=== PATIENT | male | born 1945 | race Caucasian/White ===

== ENCOUNTER → 2024-11-08 13:07 | Outpatient (REF) | payer OTHER, SELFPAY | LOC: HWRAD 13:07 | PROVIDERS: ATTENDING PHYSICIAN Internal Medicine | DX: R63.4 Abnormal weight loss (principal) | CPT/HCPCS: 71250; 74176 ==

== ENCOUNTER 2024-12-01 02:55 | Inpatient (IN) | payer OTHER, SELFPAY ==
[2024-11-30 23:01] VITALS: BMI 21.5
[2024-11-30 23:37] LABS: Hematocrit 43.1 % (39.0-52.0); Hemoglobin 13.8 g/dL (13.0-18.0); Mean Corp Hgb Conc. 32.0 g/dL (33.0-37.0); Mean Corpuscular Volume 86.7 fL (80.0-94.0); Nucleated Red Blood Cells % 0 % (-); Platelet Count 333 10^3/uL (130-400); Red Cell Dist. Width 15.6 % (11.5-14.5)
[2024-11-30 23:54] LABS: COVID-19 Antigen Negative (Negative)
[2024-11-30 23:59] LABS: ALT (SGPT) 15 U/L (0-50); AST (SGOT) 21 U/L (17-59); Albumin 3.8 g/dl (3.5-5.0); Alkaline Phosphatase 100 U/L (38-126); Blood Urea Nitrogen 15 mg/dl (9-20); Calcium 9.6 mg/dl (8.4-10.2); Carbon Dioxide 24 mmol/L (22-30); Chloride 107 mmol/L (98-107); Glucose 110 mg/dl (70-99); Potassium 3.9 mmol/L (3.5-5.1); Sodium 137 mmol/L (135-145); Total Protein 6.7 g/dl (6.3-8.2); eGFR > 60.00
[2024-12-01] VITALS (16 sets, daily range): BP systolic 95–146; BP diastolic 56–85; BMI 21.1
[2024-12-01 00:18] LABS: Troponin I 0.554 ng/ml
--- NOTE | 2024-12-01 02:19 | DOWNTIME ---
There was a [employer] Client [employer] Downtime on 12/01/2024 from 0100 to 12/01/2024 at 0215. Downtime documentation of patient's care, including medication administrations, has been reconciled in the electronic record per guidelines. Refer to the
patient's paper chart under the miscellaneous tab to see printed paper medication records and downtime forms.
--- NOTE | 2024-12-01 02:38 | ED.GENMED ---
History of Present Illness
General
Chief Complaint: Breathing Problem
Source: patient
Time Seen by Provider: 12/01/24 00:20
Nursing documentation reviewed up to this point in time: agreed with
History of Present Illness
History of Present Illness:
Note:
CHIEF COMPLAINT(S)
Shortness of breath and chest pain.
HISTORY OF PRESENT ILLNESS
The patient is a 79-year-old male with a recent history of shortness of breath and chest pain. Approximately three weeks ago, the patient began experiencing difficulty breathing, particularly during ambulation. The patient reported that this
difficulty in maintaining adequate oxygenation would improve with rest but would recur upon resuming activity. In addition, the patient noted the onset of pain on the left side of the chest, accompanied by increased difficulty with respiratory
efforts. The patient has no known history of cancer, and a recent scan showed multiple nodules in the lungs, with the largest being in the left lung. The patient was informed about the need for further evaluation with blood tests and additional
imaging studies. No other significant medical history was mentioned, although the patient is taking medication for prostate health.
PAST MEDICAL AND SURIGICAL HISTORY
The patient is taking medication for prostate health, but specific details of past medical or surgical history were not discussed.
SOCIAL DETERMINANTS AFFECTING HEALTH
No specific social determinants impacting the patients health were mentioned.
SOCIAL HISTORY
The patient did not disclose any information regarding smoking, alcohol use, or illicit drug use.
PLAN
1. Perform a computed tomography (CT) scan to evaluate for potential pulmonary embolism, given the current symptoms of shortness of breath and chest pain, and to compare with the prior imaging.
2. Conduct further blood tests as indicated in the conversation.
3. Investigate and analyze the lung nodules noted previously on the scan.
DIFFERENTIAL DIAGNOSIS
The Differential Diagnosis includes, in no particular order and is not limited to:
- Pulmonary embolism
- Pneumonia
- Lung cancer
- Chronic obstructive pulmonary disease exacerbation
- Acute coronary syndrome
- Aortic dissection
- Pneumothorax
- Interstitial lung disease
- Pleural effusion
- Costochondritis
EKG
My independent EKG interpretation is:
- Time of EKG recorded is not specified.
- Rhythm is normal.
- Heart rate is 75 beats per minute.
- CO interval, QRS duration, and QT interval are normal.
- Cardiac axis is normal.
- No ST-segment changes present.
- No T-wave inversions observed.
- No arrhythmias detected.
- Comment on the lack of previous EKG for comparison: No old EKG available for comparison.
CARE-UPDATE
12/01/24 - 02:09
CT scan reveals segmental and sub-segmental pulmonary emboli in all lobes, with right heart strain indicated by an RV-to-LV ratio greater than 1. Potential pulmonary infarct forming in the left lower lobe. No evidence of thoracic aortic aneurysm or
acute aortic dissection. Noted centrally located nodules and ground-glass opacities across all lobes, suggestive of infection or aspiration. [place] Alert activated at 2:03 a.m. Resort Keeper and interventional radiologist have been notified for further
management.
Disposition:
SUMMARY OF ENCOUNTER
The patient, a 79-year-old male, was seen in the emergency department for an acute presentation of shortness of breath and chest pain. A CT scan confirmed multiple pulmonary emboli with right heart strain. The patient showed signs of hypoxia, though
his blood pressure remained steady and normal.
DISPOSITION
Admit to the ICU for further management by the hospitalist service.
ASSESSMENT
The patients symptoms and CT scan findings of segmental and sub-segmental pulmonary emboli suggest the primary diagnosis of pulmonary embolism with right heart strain.
EMERGENCY TREATMENTS ADMINISTERED
Heparin initiated as anticoagulation therapy for pulmonary embolism management.
MANAGEMENT OF THE PATIENTS CARE WAS DISCUSSED WITH
Resort Keeper, hospitalist, and interventional radiologist have been consulted for further management in the ICU.
PLAN
The patient will be admitted to the ICU for close monitoring and management of the pulmonary embolism and associated right heart strain. Anticoagulation therapy with heparin will continue, and close monitoring of oxygenation levels and cardiac
function will be prioritized.
INDEPENDENT REVIEW OF LABS AND INTERPRETATION OF TESTS
My independent CT scan interpretation reveals segmental and sub-segmental pulmonary emboli in all lobes, with right heart strain as indicated by an RV-to-LV ratio greater than 1.
MEDICAL DECISION MAKING
-Complexity of Data Reviewed: Chronic conditions affecting care include the patients history of prostate health management. Differential diagnosis considered includes pulmonary embolism, pneumonia, lung cancer, chronic obstructive pulmonary disease
exacerbation, acute coronary syndrome, aortic dissection, pneumothorax, interstitial lung disease, pleural effusion, and costochondritis.
-Data:
Category 1: CT scan independently interpreted showing pulmonary emboli and right heart strain.
Category 3: Discussion of management includes consultations with the hospitalist, administrative aide, and interventional radiologist.
DIAGNOSIS
Pulmonary Embolism with Right Heart Strain (ICD-10: I26.01)
Phy Exam
Physical Exam
Physical Exam:
.
General Physical Exam
General Presentation: moderate distress
General age: appears older than age
General Skin: warm and dry
General Habitus: elderly and frail
General Mental: alert
General Hydration: appears well hydrated
Cardiovascular Exam
Cardiovascular Exam: regular rate/rhythm
Pulmonary Exam
Pulmonary Exam: decreased breath sounds and respiratory distress
Oxygen Status: oxygen 2 liters via NC
Respirations: mild increase in effort
Breath Sounds: Wheeze: generalized
Musculoskeletal Exam
Musculoskeletal Exam: full ROM, no edema and neuro vasc intact
Skin Exam
Skin Exam: normal color and warm/dry
Psychiatric Exam
Psychiatric Exam: normal mood/affect
Scores
Heart Failure Risk
Heart Failure Risk Score: Not Applicable
Course
Orders/Labs/Results
Orders:
Orders
11/30/24 23:08
Electrocardiogram (*1) Urgent
Reason for Study: Other
Other Reason for Exam: Respiratory Distress
Cardiac Monitoring- Treatment ONCE
EKG- Treatment ONCE
IV Insert/Care/Rem.- Treatment PRN
CR Chest - 2 Views Urgent
Comment:
Reason For Exam: respiratory distress
O2 Therapy [RESP] Urgent
Titrate/Wean O2 to maintain O2 sat greater than (%): 93
Special Instructions: TO MAINTAIN CONTINUOUS O2 SATS >/= 93%
Pulse Ox/cont/shift [RESP] Urgent
Quantity: 1
Special Instructions: continuous pulse ox
11/30/24 23:25
COVID-19 Antigen Urgent
Source: Nasal Swab
Complete Blood Count/With Diff Urgent
Comprehensive Metabolic Panel Urgent
NT-proBNP Urgent
Troponin I Urgent
Influenza A+B Rapid Molecular Urgent
SHARON Source: Nasal Swab
Specimen Description:
12/01/24 00:43
CT Chest PE Study Urgent
Comment:
Reason For Exam: lung mass, elev trop, dyspnea
12/01/24 02:38
PTT Urgent
Comment: Obtain baseline before beginning heparin infusion if not already collected
Heparin 5,400 units IV NOW STA
Pharmacy Request to Place See Dose Instructions PO NOW STA
Discontinue all Active Warfarin orders?: Yes
Nursing to Place Non Medication Order As Directed
Physician Order: PTT 6 hours after initial start of Heparin infusion
12/01/24 02:45
Heparin INFUSION titrate rate - CONTINUOUS Heparin 34020 Units/250 ml 25,000 units in 250 ml IV PER PROTOCOL
Weight to be used for heparin protocol in kilograms (kg):: 68
Protocol:: DVT/PE
PTT Goal Range to be used:: PTT 73 to 111 seconds
Order type:: Initial
INITIAL Infusion Dose (UNITS/KG/hr) & then follow protocol:: 18 units/kg/hr
Infusion Dose in UNITS/hr & then follow protocol (UNITS/hr):: 1,200
INFUSION RATE in mL/hr & then follow protocol (mL/hr):: 12
For DVT/PE algorithm, re-bolus for low PTT?: Yes
PTT less than or equal to 64 seconds:: Re-bolus 80 units/kg (max 10,000units). Increase by 300 units/hr
(+ 3mL/hr)
PTT 64.1 to 72.9 seconds:: Re-bolus 40 units/kg (max 5,000 units). Increase by 100 units/hr
(+ 1mL/hr)
PTT 73 to 111 seconds:: Target Range. No change in rate.
PTT 111.1 to 130.9 seconds:: Decrease rate by 100 units/hr (- 1 mL/hr)
PTT 131 to 199.9 seconds:: HOLD for 1 hr. Then decrease by 200 units/hr (- 2mL/hr)
PTT greater than or equal to 200 seconds:: HOLD for 2 hrs & Notify Provider. Then decrease by 300 units/hr
(- 3mL/hr)
Lab follow-up:: Each change, PTT q6h until 2 consecutive are therapeutic. Then
PTT daily.
12/01/24 03:[address] See Dose Instructions IV DIRECTED
Abnormal Lab Results
11/30/24
23:25
WBC 11.7 H 10^3/uL
(4.8-10.8)
MCHC 32.0 L g/dL
(33.0-37.0)
RDW 15.6 H %
(11.5-14.5)
Abs Immat Gran (auto) 0.1 H 10^3/uL
(0-0.05)
Absolute Neuts (auto) 9.7 H 10^3/uL
(1.4-6.5)
Absolute Lymphs (auto) 0.7 L 10^3/uL
(1.2-3.4)
Absolute Monos (auto) 1.0 H 10^3/uL
(0.1-0.6)
Neutrophils % 83.4 H %
(42.2-75.2)
Lymphocytes % 6.3 L %
(20.5-51.1)
Glucose 110 H mg/dl
(70-99)
Troponin I 0.554 H* ng/ml
11/30/24 23:25
11/30/24 23:25
Vital Signs
Initial and Last Documented VS:
Initial Vital Signs
Temp Pulse Resp Pulse Ox
98.0 F 94 20 81
11/30/24 23:03 11/30/24 23:03 11/30/24 23:03 11/30/24 23:03
Last Documented Vital Signs
Temp Pulse Resp Pulse Ox
98.0 F 83 18 98
11/30/24 23:03 11/30/24 23:30 12/01/24 00:00 11/30/24 23:30
*Pulse Oximetry
SaO2: 98
Nasal Cannula flow liters per minute: 82
Oxygen Mode of Delivery: Room air
Patient hypoxic: yes (85% on room air)
*Critical Care Note
Total Time (30-74mins, 75-104mins- exclusive of procedures): 42 (Critical care statement: A total of 42 minutes of critical care time was provided for this patient. This time is separate from time utilized to perform the aforementioned documented
procedures. Aggregate critical care time includes only time during which I was engaged in work directl)
ED Attending Note
-
Portions of this chart may have been created with voice recognition software.� Occasional wrong word or��sound alike� substitutions may have occurred due to the inherent limitations of voice recognition software.
Discharge Plan
Departure
Patient Disposition: Admit
Date of Disposition: 12/01/24
Time of Disposition: 02:41
Admit to: ICU
Presentation/result/management discussed w/ accepting MD/DO: Hospitalist
Discharge Problem:
Pulmonary emboli, Infarctions, pulmonary, Pneumonia, Right heart strain
Prescriptions:
No Action
atorvastatin 20 mg tablet
20 mg PO HS
metoprolol succinate 50 mg tablet extended release 24 hr
50 mg PO DAILY
levothyroxine 50 mcg tablet
50 mcg PO DAILY
timolol maleate 0.5 % drops
1 drp ophthalmic (eye) DAILY
dutasteride 0.5 mg capsule
0.5 mg PO DAILY
Referrals:
Rosey Eason DO [Family Provider, Internal Medicine]
Interventions
Interventions:
*Risk Screen - Suicide Last Done: 11/30/24 23:03
*General Assessment Last Done: 11/30/24 23:03
*Neglect/Abuse Screening Last Done: 11/30/24 23:03
*ED- Fall Risk Assessment Last Done: 11/30/24 23:03
*ED COVID-19 Vaccine History Last Done: 11/30/24 23:03
ED- Cardiac Assessment Last Done: 12/01/24 00:30
ED- Pulmonary Assessment Last Done: 12/01/24 00:30
Discharge Date and Time
Print Language: SLOVAK
--- NOTE | 2024-12-01 02:44 | HPS.HSE ---
Family Physician
-
Family Physician: Rosey Eason
Chief Complaint
-
Chest Pain, SOB
History of Present Illness
Patient is a 79y M with PMH significant for ASCVD, hypothyroidism and BPH who presents to ED complaining of chest pain and SOB. Patient states that he has been having PETER for the past 3-4 weeks. This has been gradually progressive. He was seen
by his PCP and Pulmonary. CT scan done (without IV contrast) on 11/08 showed evidence of LLL pulmonary nodules / pleural based. Patient also noted about 50# weight loss over the past 2 years - unintentional. He was scheduled for PET scan later
this AM for further evaluation.
Friday patient had more severe SOB with exertion - having to stop twice each way to catch his breath on the way to and from dinner.
Patient also notes L lower / lateral chest pain that has been increasing over the past 2 weeks or so. Pain is worse with deep breathing or coughing.
He denies any chills. notes that he has had temperatures at home of around 100 intermittently. No significant cough. No GI or complaints.
With increased SOB and chest pain this evening, patient presented t o the ED for further evaluation.
Patient denies any prior h/o DVT / PE. No recent surgery. No recent travel. No lower extremity edema or calf pain.
Medical History
Past Medical History
Past Medical History: Reports Other
Additional Past Medical History:
ASCVD
Hypothyroidism
BPH
Glaucoma
Pulmonary Nodules (new)
Past Surgical History: Reports Other
Additional Past Surgical History:
Appendectomy
Cataracts
Social History
Tobacco: Former Smoker (Quit smoking 25 years ago. / ppd x 40 years prior to that.)
Alcohol: Occasional
Drug: None
Personal:
Living: Assisted Living
Family History
Family History: Other (Father: Lung Cancer Mother: CAD)
Allergies / Home Medications
Allergies reflects when Allergies were last updated in [facility].
Home Medications with original date entered in [facility]
Allergy/Medication List:
Allergies
Allergy/AdvReac Type Severity Reaction Status Date / Time
No Known Allergies Allergy Unverified 11/30/24 23:03
Home Medications
atorvastatin 20 mg tablet 20 mg PO HS 12/01/24
dutasteride 0.5 mg capsule 0.5 mg PO DAILY 12/01/24
levothyroxine 50 mcg tablet 50 mcg PO DAILY 12/01/24
metoprolol succinate 50 mg tablet,extended release 24 hr 50 mg PO DAILY 12/01/24
timolol maleate 0.5 % eye drops 1 drp ophthalmic (eye) DAILY 12/01/24
Review of Systems
-
History Source: Patient
A 12 point ROS was completed and negative except as noted: Yes
Constitutional: Reports Fever and Fatigue; Denies Chills
EENT: Denies Sore Throat
Respiratory: Reports Trouble Breathing; Denies Cough or Hemoptysis
Cardiac: Reports Chest Pain; Denies Diaphoresis or Palpitations
Abdomen/GI: Denies Abdominal Pain, Nausea, Vomiting or Diarrhea
: Denies Dysuria, Frequency or Flank Pain
Musculoskeletal: Denies Joint Pain or Edema
Neurological: Denies Dizzy or Headache
Psych: Denies Depression or Anxiety
Physical Exam
Vital Signs
Vital Signs
Temp Pulse Resp Pulse Ox
98.0 F 83 18 98
11/30/24 23:03 11/30/24 23:30 12/01/24 00:00 12/01/24 02:43
Physical Exam
General: Other (79y M in no acute distress.)
HEENT: Moist mucous membranes, PERRLA and Other (Neck supple. Pos HJR.)
Respiratory: Other (Breath sounds are diminished at the L base. Few scattered squeaks / wheezes.)
Cardiac: S1/S2 and Regular Rhythm; No Murmur
GI: Soft, Non Tender, Non Distended and Normal Bowel Sounds
Musculoskeletal: No Clubbing, No Cyanosis, No Edema and Other (No calf tenderness / chords.)
Neuro: AO x 3
Laboratory Results
-
11/30/24 23:25
11/30/24 23:25
Laboratory Results
Total Bilirubin 1.2 mg/dl (0.2-1.3) 11/30/24 23:25
AST 21 U/L (17-59) 11/30/24 23:25
ALT 15 U/L (0-50) 11/30/24 23:25
Alkaline Phosphatase 100 U/L (38-126) 11/30/24 23:25
Troponin I 0.554 ng/ml H* 11/30/24 23:25
Impression/Plan
-
A/P: Patient is a 79y M with PMH significant for ASCVD, hypothyroidism and BPH who presents to ED complaining of chest pain and SOB.
Multiple Bilateral Pulmonary Emboli
Acute Hypoxemic Respiratory Insufficiency secondary to the above
Pleuritic Pain secondary to LLL Infarct
Pulmonary Nodules LLL
- Admit for further evaluation and treatment.
- Significant clot burden and radiographic evidence of R sided strain; however - BP stable, not tachycardic and adequate oxygenation on 2.5 lpm of supplemental O2.
- Begin IV heparin and continue for at least 24 hours.
- Check Echo in AM.
- IVF support and monitor BP.
- Continue supplemental O2. Pain control / supportive care.
- Follow troponin to peak.
- Continue IV abx / Unasyn for now for ground glass opacities, intermittent fevers, etc - though suspect malignant / inflammatory > infectious etiology.
- Pulmonary evaluation for additional recommendations.
- Will need to reschedule PET scan (originally for this AM) for further evaluation of pulm nodules (which may explain etiology of VTE).
- Follow for clinical improvement.
ASCVD
- Prior h/o NSTEMI, no surgeries / stents.
- Not on daily ASA.
- Continue Toprol with holding parameters.
- Continue statin.
- Troponin elevation likely secondary to PE as noted above. Follow to peak.
Hypothyroidism
- Continue current T4 supplementation.
- Update TFTs
BPH
- Continue dutasteride for now.
- Bladder scan protocol.
- Check PSA given weight loss, etc.
Glaucoma
- Continue timolol.
DVT Prophylaxis: On IV Heparin
Code Status: Full
[2024-12-01] MEDS: HEPARIN 5400 UNITS IV (03:02)
[2024-12-01] MEDS: HEPARIN 25000 UNITS/250 ML IV ×2 (03:03→23:14)
[2024-12-01] MEDS: UNASYN IV ×4 (03:09→21:40)
[2024-12-01 03:19] LABS: APTT 30.9 Sec (23.4-35.0)
[2024-12-01] MEDS: LR 1000 IV ×2 (03:46→13:33)
[2024-12-01] MEDS: TYLENOL 650 MG PO ×3 (03:53→20:02)
[2024-12-01 04:19] LABS: Blood Urea Nitrogen 14 mg/dl (9-20); Calcium 9.1 mg/dl (8.4-10.2); Carbon Dioxide 24 mmol/L (22-30); Chloride 106 mmol/L (98-107); Estimated Creatinine Clearance 72 ml/min; Glucose 117 mg/dl (70-99); HDL Cholesterol 38 mg/dl; LDL Cholesterol, Calculated 108 mg/dl; Potassium 4.0 mmol/L (3.5-5.1); Sodium 136 mmol/L (135-145); Very Low Density Lipoprotein 8 mg/dl (0-30); eGFR > 60.00
--- NOTE | 2024-12-01 04:33 | PTCARENOTE ---
Addendum entered by Marybeth Winston RN 12/01/24 04:37:
PRN PO tylenol given for rectal temp 101.5. rectal probe in place.
Original Note:
rec'd pt from ER on heparin gtt. next PTT due at 0900. CHG bath complete. pt oriented x3, SR on monitor, EKG done. on 2L NC, admits to SOB, HOB elevated for comfort, O2 sat 94-96%. lungs diminished. NPO. urinal at bedside. IVF initiated. AM labs
sent. at bedside, updated on plan. call medel in reach.
[2024-12-01 04:35] LABS: Troponin I 0.823 ng/ml
[2024-12-01 04:51] LABS: PSA, Total - Screen 1.53 ng/ml (0.0-4.0)
[2024-12-01] MEDS: SYNTHROID 50 MCG PO (05:10)
[2024-12-01] MEDS: PROSCAR 5 MG PO (08:24)
[2024-12-01] MEDS: TOPROL XL 50 MG PO (08:24)
--- NOTE | 2024-12-01 08:25 | PTCARENOTE ---
Received pt in bed with his at the bedside. They were both informed of the plan of care regarding managing the Heparin drip to dissolve the blood clots in his lungs while supporting him with oxygen. Right AC with LR@100ml/hr and Heparin drip
@1200 units/hr via left AC. Bounding peripheral pulses, no edema. Lungs dim throughout. Tolerating 2 liters nasal cannula. Pulse ox 96%. C/O 6 out of 10 pain in his left lateral chest wall with deep breathing. Asked for Acetaminophen. +BSX4. Admits
to a poor appetite. NPO except sips of water. He did not want to brush his teeth at this time. Safe environment maintained. Will continue to monitor.
[2024-12-01] MEDS: TIMOPTIC 0.5% OPHTHALMIC SOLUTION 1 DROP OPHTH (08:26)
--- NOTE | 2024-12-01 09:30 | PTCARENOTE ---
Pt dangled his feet at the bedside to void. Voided 220ml's dark concentrated urine. Mildly PETER. Desaturated to 80% with dislodgement of his nasal cannula. Oxygen increase to 3 liters nasal cannula until his pulse ox is >94%. They are aware of the
plan of care. Posteriorly while sitting up his breath sounds were dim throughout. Right AC with LR and left AC with Heparin @ 1200 units/hr. Good peripheral pulses, no edema. Safe environment maintained. Will continue to monitor.
[2024-12-01 09:58] LABS: APTT 125.1 Sec (23.4-35.0)
[2024-12-01 10:07] LABS: Troponin I 0.575 ng/ml
--- NOTE | 2024-12-01 10:08 | CON.PUL ---
Consultation
Consultation Request
Date/Time Consultation Requested: 12/01/2024328
Date/Time Consultation Performed: 12/01/2024 - 932
Requesting Provider: Dr. Lo
Performing Provider: Dr. Oetro
Reason for Consultation: Acute PE
Medical History
-
Chief Complaint: Worsening SOB + chest pain
History of Present Illness:
79-year-old male with a past medical history of BPH, hyperlipidemia, hypothyroidism, history of colon polyps, history of skin cancer and lung nodules who presents with shortness of breath and chest pain. His shortness of breath has been ongoing for
about 1-2 months, and progressively worsening. He had a CT chest/abdomen/pelvis on 11/08/2024 showing a 3.6 pleural-based nodule in the left lower lobe with other smaller centrilobular nodules seen bilaterally, with bilateral thyroid nodules and
diffuse wall thickening and inflammatory changes adjacent to the urinary bladder + mild prostatic enlargement. He saw us in the pulmonary office on 11/18/2024 and a PET/CT is being arranged. In the ER, he was afebrile with pulse rate 94,
respiratory rate 20, BP 130/78 and he was initially saturating 81% on room air. Initial blood work pertinent for mild leukocytosis to 11.7, troponin 0.554, proBNP 3420, and COVID-19 antigen negative. CXR showed no acute cardiopulmonary process.
CTA chest showed pulmonary emboli within all segmental branches of the lungs bilaterally although no central emboli in the main pulmonary artery on either side. There was evidence of RV strain with RV: LV ratio of 1:1. Also multiple left-sided
thyroid nodules. The previous left lower lobe peripheral nodule which had measured 3.[address] chest from 11/08/2024, now measures 1.1 cm. There was no pathological mediastinal lymphadenopathy. PERT alert called - patient started on heparin drip
in addition to LR, and admitted to the IMU for further care with pulmonary service consulted for additional management/recommendations. IR reviewed case and recommended anticoagulation with no need for IR intervention.
When I saw the patient, he was resting in bed in no acute distress. Currently on 2 L/min nasal cannula saturating 96% with heart rate 64 and BP 120/67. He denies any recent plane rides, long car trips and no personal history of a pulmonary
embolism or clot in his legs. Also denies a family history of blood clots. He is currently on heparin drip. Still has SOB/chest discomfort but it is better than yesterday. Currently denies headache, abdominal pain, nausea, fevers or chills.
PMHx:BPH, hypothyroidism, hyperlipidemia, history of UT, colon polyps, history of skin cancer, pulmonary nodules
PSHx: Appendectomy, bilateral cataract surgery
Past Medical History
Past Medical History: Other (Above as per HPI)
Past Surgical History: Other (Above as per HPI)
Social History
Tobacco: Former Smoker (Quit approximately 40 years ago, smoking 0.5 PPD x 20 years)
Alcohol: None
Drug: None
Family History
Family History: Cancer (Father: Lung cancer) and Other (Mother: History of UT)
Allergies / Home Medications
Allergies
Allergy/AdvReac Type Severity Reaction Status Date / Time
No Known Allergies Allergy Unverified 11/30/24 23:03
Home Medications
�Medication �Instructions �Recorded �Confirmed �Last Taken �Type
atorvastatin 20 mg tablet 20 mg PO HS High Cholesterol 12/01/24 12/01/24 Unknown History
dutasteride 0.5 mg capsule 0.5 mg PO DAILY Urinary Issue 12/01/24 12/01/24 Unknown History
levothyroxine 50 mcg tablet 50 mcg PO DAILY Thyroid 12/01/24 12/01/24 Unknown History
metoprolol succinate 50 mg 50 mg PO DAILY Blood Pressure 12/01/24 12/01/24 Unknown History
tablet,extended release 24 hr
timolol maleate 0.5 % eye drops 1 drp ophthalmic (eye) DAILY Eye 12/01/24 12/01/24 Unknown History
Condition
Review of Systems
-
History Source: Patient
All other systems: Negative unless noted
Vitals / Labs / Diagnostic Testing
Vital Signs
Temp Pulse Resp BP Pulse Ox
98.7 F 57 24 123/80 99
12/01/24 07:17 12/01/24 09:45 12/01/24 09:45 12/01/24 08:25 12/01/24 09:45
Lab Data
11/30/24 23:25
12/01/24 03:43
Laboratory Results
12/01/24 12/01/24
02:51 09:17
APTT 30.9 125.1 H
Microbiology
11/30/24 23:25 Nasal Swab Influenza Types A & B (CHRISTOPH) - Final
Negative for Influenza A & B, NAAT
Negative results must be combined with clinical observations
and patient history.
Nucleic Acid Amplification test (NAAT)performed on the
[employer] platform.
Diagnostic Testing:
Physical Exam
-
HEENT: Normocephalic and Anicteric
Cardiovascular: S1/S2 and Peripheral Edema (negative)
Respiratory: Clear, Wheeze (negative), Rales (negative), Rhonchi (negative) and Non-Labored Respirations
GI: Soft, Non Distended, Non Tender and Normal Bowel Sounds
Neurology: Awake, Alert and Tremors (negative)
Skin: Warm and Dry
General: Respiratory Distress (negative), Comfortable, Fever (negative) and Chills (negative)
Assessment
-
Assessment: 79-year-old male with a past medical history of BPH, hyperlipidemia, hypothyroidism, history of colon polyps, history of skin cancer and lung nodules who presents with shortness of breath and chest pain. His shortness of breath has
been ongoing for about 1-2 months, and progressively worsening. He had a CT chest/abdomen/pelvis on 11/08/2024 showing a 3.6 pleural-based nodule in the left lower lobe with other smaller centrilobular nodules seen bilaterally, with bilateral
thyroid nodules and diffuse wall thickening and inflammatory changes adjacent to the urinary bladder + mild prostatic enlargement. He saw us in the pulmonary office on 11/18/2024 and a PET/CT is being arranged. In the ER, he was afebrile with pulse
rate 94, respiratory rate 20, BP 130/78 and he was initially saturating 81% on room air. Initial blood work pertinent for mild leukocytosis to 11.7, troponin 0.554, proBNP 3420, and COVID-19 antigen negative. CXR showed no acute cardiopulmonary
process. CTA chest showed pulmonary emboli within all segmental branches of the lungs bilaterally although no central emboli in the main pulmonary artery on either side. There was evidence of RV strain with RV: LV ratio of 1:1. Also multiple
left-sided thyroid nodules. The previous left lower lobe peripheral nodule which had measured 3.[address] chest from 11/08/2024, now measures 1.1 cm. There was no pathological mediastinal lymphadenopathy. PERT alert called - patient started on
heparin drip in addition to LR, and admitted to the IMU for further care with pulmonary service consulted for additional management/recommendations. IR reviewed case and recommended anticoagulation with no need for IR intervention.
Chronic conditions [employer] AGENT: BPH, hypothyroidism, hyperlipidemia, history of UT, colon polyps, history of skin cancer, pulmonary nodules
Impression:
#Acute submassive PE involving all lobes of the lung bilaterally with RV strain (PESI score: 108 points, class IV = high risk: 4.0 - 11.4 % 30-day mortality)
#Elevated troponin likely due to above with demand ischemia due to type II UT
#Right lower extremity DVT with nonocclusive thrombus in the right common femoral vein; also occlusive thrombus in the right SFJ down to the calf
#Leukocytosis likely reactive due to above
#Former tobacco smoker (quit approximately 40 years ago, smoking 0.5 PPD x 20 years)
#Hypothyroidism
#BPH without LUTS
#History of skin cancer
#History of colon polyps
#Pulmonary nodules including a left lower lobe posterior lung nodule, with formed component measuring 8 x 8 mm, and previously on CT chest from 11/08/2024, it measured 11 x 12 mm
Plan:
- Continue with systemic parenteral anticoagulation with heparin drip with eventual plans to transition to NOAC, preferably Eliquis, after 24-48 hours
- Although he does have evidence of RV strain with high clot burden, he remains hemodynamically stable, on minimal supplemental oxygen and is not tachycardic. No need for catheter directed thrombolysis or other vascular intervention at this time
- Transthoracic echo today performed, showing a moderately dilated, hypokinetic RV although there is no evidence of TR. Recommend repeat echo in approximately 4 to 6 weeks to assure the RV systolic function improves.
- Peripheral lower extremity duplex US from today (12/01) shows a nonocclusive thrombus in the right common femoral vein, and a superficial occlusive thrombus in the right GSV from the SFJ down to the calf
- Recommend outpatient hematology evaluation to discuss duration of AC needed and to consider hypercoagulable workup
- Continue following up with us in the office to continue working up his left lower lobe pleural-based nodule, although it has decreased in size from 3.6 cm now down to 1.3 cm, suggestive of rounded atelectasis; the more formed component of this
nodule had previously measured 11 x 12 mm, and now measures 8 x 8 mm--> he was pending a PET/CT. Defer to Dr. Amaral who is following with him in the pulmonary office, if a biopsy of this LLL nodule is still needed
- Maintain SpO2 >90-94% using supplemental oxygen, wean down as tolerated
- Recommend ambulatory pulse oximetry prior to discharge
- Outpatient pulmonary office follow-up recommended for full PFTs in about 4 to 6 weeks, in addition to 6MWT
- Bedrest for first 24 hours after heparin gtt was started and aPTT at goal
- Maintain MAP>65
- Replete electrolytes with K>4, Mg>2
- Maintain euglycemia with goal BG >100 and <180
- Trend H/H and transfuse if needed to keep Hb>7g/dL; keep plt>50k (while on heparin gtt)
- prn nebulized bronchodilators - not currently bronchospastic
- Incentive spirometer encouraged 10x per hour for at least 4 hrs a day
- DVT ppx: Heparin gtt
Pulmonary service will continue to follow along.
Data:
Bilateral lower extremity duplex US 12/01/2024:
Occlusive thrombus in the right greater saphenous vein from the saphenofemoral junction to the calf. Nonocclusive thrombus in the right common femoral vein.
Patient with known pulmonary embolism.
CTA chest 12/01/2024:
1. Positive for pulmonary embolism, with segmental and subsegmental emboli involving all lobes of the lung. No emboli seen within the main pulmonary trunks.
2. Mild elevation of the RV: LV ratio, measuring approximately 1.1, suggestive of mild right heart strain.
3. Multiple lung nodules as detailed above, majority of which are not significantly changed compared to prior CT dated 11/08/2024. The largest nodule seen on prior CT dated 11/08/2024 within the left lower lobe has significantly decreased in size, and
most likely represents rounded atelectasis. Remaining nodules are also likely infectious or inflammatory, however follow-up imaging is suggested for confirmation.
4. Tiny left pleural effusion, new compared to prior study.
5. Unchanged thyroid nodules. Consider dedicated thyroid ultrasound as clinically appropriate.
Transthoracic echocardiogram 12/01/2024:
1. Technically limited study.
2. Ejection fraction is 56% by volumetric assesment.
3. Moderately dilated hypokinetic right ventricle.
4. Trileaflet calcified aortic valve with adequate leaflet excursion.
5. Mild concentric left ventricular hypertrophy.
Total time spent today was 78 minutes for this encounter. Time includes reviewing laboratory test/imaging results, reviewing pertinent medical records, obtaining and reviewing medical history, performing an appropriate exam, ordering medications,
tests and procedures. Time also includes documentation of this encounter, coordinating patient care and communicating with other healthcare professionals. Total time does not include separately billed tests performed on this date of service.
--- NOTE | 2024-12-01 10:18 | PTCARENOTE ---
Heparin drip adjusted accordingly. Pt and his were informed that in 6 hours we will reassess his PTT for a therapeutic range of 73-111. They verbalized their understanding.
--- NOTE | 2024-12-01 12:02 | W.PN.HOSP.TC ---
Today's Communication/Plan
-
See plan
Assessment / Plan
Assessment / Plan
Impression
Patient is a 79y M with PMH significant for ASCVD, hypothyroidism and BPH who presents to ED complaining of chest pain and SOB.
Acute hypoxic respiratory failure
Multiple bilateral pulmonary embolism
Left lower lobe process: Nodule versus pulmonary infarct with small pleural effusion.
Unintentional weight loss
Non-DC troponin elevation in the settings of acute PE
Conditions prior to admission
ASCVD
Hypothyroidism
BPH
Glaucoma
Plan
Acute hypoxic respiratory failure pulse ox 88% on room air on presentation baseline multiple bilateral pulmonary emboli.
Left lower lobe process with nodule, possibly pulmonary infarct and small pleural effusion.
CT scan with possible mild RV strain ratio 1.1.
Continue oxygen supplementation for
Initiated on IV heparin for
Echocardiogram
Lower extremity Doppler.
Speech and swallow evaluation
Empiric antibiotics: Unasyn
Pulmonary consult
With above as well as unintentional weight loss patient is scheduled for PET scan as outpatient
ASCVD
- Prior h/o NSTEMI, no surgeries / stents.
- Not on daily ASA.
- Continue Toprol with holding parameters.
- Continue statin.
- Troponin elevation likely secondary to PE as noted above. Follow to [facility].
Hypothyroidism
- Continue current T4 supplementation.
- Update TFTs
BPH
- Continue dutasteride for now.
- Bladder scan protocol.
- Check PSA given weight loss, etc.
Glaucoma
- Continue timolol.
DVT Prophylaxis: On IV Heparin
Code Status: Full
Anticipated Discharge: 24 - 48 hours
Subjective/Interval History
-
Date of Service: December 01, 2024
Objective Data
-
Labs:
Laboratory Results
12/01/24 12/01/24 12/01/24
02:51 03:43 09:17
APTT 30.9 125.1 H
Sodium 136
Potassium 4.0
Chloride 106
Carbon Dioxide 24
BUN 14
Creatinine 0.8
Glucose 117 H
Calcium 9.1
12/01/24
16:15
APTT Pending
Sodium
Potassium
Chloride
Carbon Dioxide
BUN
Creatinine
Glucose
Calcium
Vital Signs:
Vital Signs
Temp Pulse Resp BP Pulse Ox
98.9 F 57 24 123/80 96
12/01/24 11:50 12/01/24 09:45 12/01/24 09:45 12/01/24 08:25 12/01/24 11:50
I&O
11/30/24 12/01/24 12/02/24
06:59 06:59 06:59
Intake Total 336 / 448 688 / 688
Output Total 220 / 220
Balance 336 / 448 468 / 468
Physical Exam
-
General: Well Developed and No Apparent Distress
HEENT: Normocephalic, Atraumatic and Moist Mucous Membranes
Respiratory: Clear to Auscultation
Cardiac: Regular Rhythm and S1/S2; Negative Murmur, Rub or Gallop
GI: Soft, Nontender, Nondistended and Normal Bowel Sounds; Negative Organomegaly
Rectal: Deferred by Provider
Musculoskeletal: No Clubbing, No Cyanosis and No Edema
Skin: Negative Rash
Neuro: Nonfocal/Grossly Intact
--- NOTE | 2024-12-01 13:25 | CM ---
SOB, CP, fever, lost 50 lbs in 2 years without trying. Initial assessment completed with patient with in room. Patient lives with his in a 4th floor apartment in an elevator building at [facility] independent living, no steps to enter.
CONTAIN[employer] patient was independent in ADL's and ambulation, drives. No DME. No in-home services. Does have HC-POA. No VA benefits. No psychiatric hospitalizations. PCP is Dr. Rosey Eason. Pharmacy is [facility]. Discharge POC: TBD.
--- NOTE | 2024-12-01 14:30 | PTOTSP ---
Speech Language Pathology
Pt seen for clinical bedside swallow evaluation. P.O. trials of puree, regular solids, and thin liquids provided. Adequate mastication, bolus formation, and A-P transit noted. Pt denied any globus sensation. Cough with 1st 2 sips of thin water
via cup and last straw sip (total cough in 3/8 trials). RN reported that pt took meds without difficulty earlier. Will initiate diet and monitor. If coughing noted with P.O. intake, will consider instrumental swallowing assessment.
Recommend:
(1) Regular solids/thin liquids
(2) Aspiration precautions: slow rate, sit upright, single sips
(3) Meds as tolerated
(4) CO[employer] SPECIALIST to continue to follow
[2024-12-01 17:25] LABS: APTT 70.4 Sec (23.4-35.0)
[2024-12-01] MEDS: HEPARIN 2700 UNITS IV (17:32)
--- NOTE | 2024-12-01 20:00 | PTCARENOTE ---
Received pt from previous shift. Systems reviewed, see flowsheets. Pt asleep but arousable to voice. He reports 8/10 L chest pain with breathing, but does not want pain medication stronger than tylenol. Advised pt to let me know if his pain becomes
worse and he requires something stronger. PRN tylenol administered for rectal temp of 101.1. Pt is diaphoretic and reports feeling cool. FiO2 increased to 3L as pt desaturated to 85% on 2L with movement. Heparin gtt infusing through L forearm PIV at
1200units/hr. L forearm PIV is prehospital- will replace. RAC PIV with LR infusing at 100mL/hr. NSR on heart monitor. Will continue to monitor.
[2024-12-01] MEDS: LIPITOR 20 MG PO (20:03)
[2024-12-01 23:40] LABS: APTT 86.0 Sec (23.4-35.0)
[2024-12-02] VITALS (25 sets, daily range): BP systolic 90–155; BP diastolic 56–90; BMI 21.6
[2024-12-02] MEDS: LR 1000 IV ×3 (01:03→22:57)
[2024-12-02] MEDS: UNASYN IV ×4 (02:55→20:31)
[2024-12-02] MEDS: SYNTHROID 50 MCG PO (05:30)
[2024-12-02 06:03] LABS: APTT 74.4 Sec (23.4-35.0)
[2024-12-02 06:12] LABS: Blood Urea Nitrogen 10 mg/dl (9-20); Calcium 8.7 mg/dl (8.4-10.2); Carbon Dioxide 27 mmol/L (22-30); Chloride 108 mmol/L (98-107); Estimated Creatinine Clearance 84 ml/min; Glucose 107 mg/dl (70-99); Potassium 3.8 mmol/L (3.5-5.1); Sodium 139 mmol/L (135-145); eGFR > 60.00
[2024-12-02] MEDS: DILAUDID 0.5 MG IV (07:24)
[2024-12-02] MEDS: PROSCAR 5 MG PO (07:25)
[2024-12-02] MEDS: TIMOPTIC 0.5% OPHTHALMIC SOLUTION 1 DROP OPHTH (07:25)
[2024-12-02] MEDS: TOPROL XL 50 MG PO (07:25)
--- NOTE | 2024-12-02 07:30 | PTCARENOTE ---
Received pt sitting up in bed. He asked to have his left hand IV looked at because he said it was leaking all over. Upon inspection the dressing was CDI and the site intact. He was able to verbalize where he was including the date, time and current
events. Left hand #20g IV with Heparin @ 1200 units/hr & LR @100ml's/hr via right AC#18g protective catheter. Good peripheral pulses no edema. He asked to void and was dangling his feet on the side of the bed. He was tachypneic w/RR 34, desaturation
89% on 4 liters NC. Oxygen was titrated to 6 liters and was assisted to laying back down. He also admitted to worsening left sided chest pain. EKG obtained. Rigors vs tremors ensued. Rectal temperature was 100.1. He was provided a CHG bath and bed
linen and EKG leads changed. Blankets provided along with hot tea. Resolution of rigors/tremors shortly after. Breath sounds improved across all lung roman compared to yesterday. +BSX4. Poor appetite. Sacrum with small area that is red and
blanchable. He was encouraged to shift his hips off his tail bone to prevent worsening redness. Good nutrition was also encouraged due to PE, poor nutritional intake and recent weight loss. He nodded his head in understanding and stated he usually
does not eat breakfast. Urinary retention noted. Required straight cath in the past. Saf environment maintained. Will continue to monitor.
[2024-12-02] MEDS: TYLENOL 650 MG PO ×2 (07:54→15:37)
[2024-12-02 10:12] LABS: Hematocrit 40.0 % (39.0-52.0); Hemoglobin 12.8 g/dL (13.0-18.0); Mean Corp Hgb Conc. 32.0 g/dL (33.0-37.0); Mean Corpuscular Volume 87.9 fL (80.0-94.0); Nucleated Red Blood Cells % 0 % (-); Platelet Count 340 10^3/uL (130-400); Red Cell Dist. Width 15.6 % (11.5-14.5)
--- NOTE | 2024-12-02 10:27 | W.PN.PUL3 ---
Today's Communication / Plan
-
Heparin drip; I am not opposed to transitioning to Eliquis tonight
Consult case management to assess affordability of NOAC (preferably Eliquis)
Antibiotics given areas of ground glass + nodular opacities seen on CTA chest (which were previously seen as well on prior CT chest from 11/08/2024 and nodule opacities have overall improved)
Monitor for fevers
Check sputum Cx if he can produce decent sample
Follow up blood Cx
Check urine antigens for legionella & Strep PNA
Repeat echo in about 4 to 6 weeks
Outpatient pulmonary office follow-up with Dr. Amaral (12/23/2024 at 1:30 PM)
Pulmonary service will continue to follow along
Assessment
-
Assessment: 79-year-old male with a past medical history of BPH, hyperlipidemia, hypothyroidism, history of colon polyps, history of skin cancer and lung nodules who presents with shortness of breath and chest pain. His shortness of breath has
been ongoing for about 1-2 months, and progressively worsening. He had a CT chest/abdomen/pelvis on 11/08/2024 showing a 3.6 pleural-based nodule in the left lower lobe with other smaller centrilobular nodules seen bilaterally, with bilateral
thyroid nodules and diffuse wall thickening and inflammatory changes adjacent to the urinary bladder + mild prostatic enlargement. He saw us in the pulmonary office on 11/18/2024 and a PET/CT is being arranged. In the ER, he was afebrile with pulse
rate 94, respiratory rate 20, BP 130/78 and he was initially saturating 81% on room air. Initial blood work pertinent for mild leukocytosis to 11.7, troponin 0.554, proBNP 3420, and COVID-19 antigen negative. CXR showed no acute cardiopulmonary
process. CTA chest showed pulmonary emboli within all segmental branches of the lungs bilaterally although no central emboli in the main pulmonary artery on either side. There was evidence of RV strain with RV: LV ratio of 1:1. Also multiple
left-sided thyroid nodules. The previous left lower lobe peripheral nodule which had measured 3.[address] chest from 11/08/2024, now measures 1.1 cm. There was no pathological mediastinal lymphadenopathy. PERT alert called - patient started on
heparin drip in addition to LR, and admitted to the IMU for further care with pulmonary service consulted for additional management/recommendations. IR reviewed case and recommended anticoagulation with no need for IR intervention.
Chronic conditions [employer]: BPH, hypothyroidism, hyperlipidemia, history of NM, colon polyps, history of skin cancer, pulmonary nodules
Impression:
#Acute submassive PE involving all lobes of the lung bilaterally with RV strain (PESI score: 108 points, class IV = high risk: 4.0 - 11.4 % 30-day mortality)
#Elevated troponin likely due to above with demand ischemia due to type II NM
#Right lower extremity DVT with nonocclusive thrombus in the right common femoral vein; also occlusive thrombus in the right SFJ down to the calf
#Leukocytosis likely reactive due to above
#Febrile illness
#Former tobacco smoker (quit approximately 40 years ago, smoking 0.5 PPD x 20 years)
#Hypothyroidism
#BPH without LUTS
#History of skin cancer
#History of colon polyps
#Pulmonary nodules including a left lower lobe posterior lung nodule, with formed component measuring 8 x 8 mm, and previously on CT chest from 11/08/2024, it measured 11 x 12 mm
Plan:
- Continue with systemic parenteral anticoagulation with heparin drip with eventual plans to transition to NOAC, preferably Eliquis, after 24-48 hours
- Although he does have evidence of RV strain with high clot burden, he remains hemodynamically stable, on minimal supplemental oxygen and is not tachycardic. No need for catheter directed thrombolysis or other vascular intervention at this time
- Transthoracic echo performed on 12/01, showing a moderately dilated, hypokinetic RV although there is no evidence of TR. Recommend repeat echo in approximately 4 to 6 weeks to assure the RV systolic function improves.
- Peripheral lower extremity duplex US performed 12/01/2024 showed non-occlusive thrombus in the right common femoral vein, and a superficial occlusive thrombus in the right GSV from the SFJ down to the calf - > continue AC as stated above
- Recommend outpatient hematology evaluation to discuss duration of AC needed and to consider hypercoagulable workup
- Continue following up with us in the office to continue working up his left lower lobe pleural-based nodule, although it has decreased in size from 3.6 cm now down to 1.3 cm, suggestive of rounded atelectasis; the more formed component of this
nodule had previously measured 11 x 12 mm, and now measures 8 x 8 mm--> he was pending a PET/CT, which I still reinforced to him that he should get this unless told otherwise by Dr. Amaral (his hydraulic jack adjuster).
- Ultimately will defer to Dr. Amaral if a biopsy of this LLL nodule is still needed
- Maintain SpO2 >90-94% using supplemental oxygen, weaning down as tolerated
- Recommend ambulatory pulse oximetry prior to discharge
- Outpatient pulmonary office already scheduled for 12/23/2024 at 1:[address] Amaral; recommend full PFTs in about 4 to 6 weeks, in addition to 6MWT (dread if he is DC'd on O2)
- Ok to get up OOB now that it has been > 24 hours since his acute PE was started on Tx with heparin gtt with aPTT at goal
- Given his fevers, continue with Unasyn
- Overall, the extent of his bilateral subpleural nodular opacities ever seen in his right lower lobe, lingula, RML + posterior right upper lobe have all improved
- Blood cultures collected today (NGTD)
- If patient able to produce a decent sputum sample, then we should send off a sputum culture; also will check strep pneumonia + Legionella urine antigens
- Trend WBC and monitor temperature curve
- Maintain MAP>65
- Replete electrolytes with K>4, Mg>2
- Maintain euglycemia with goal BG >100 and <180
- Trend H/H and transfuse if needed to keep Hb>7g/dL; keep plt>50k (while on heparin gtt)
- prn nebulized bronchodilators - not currently bronchospastic
- Incentive spirometer encouraged 10x per hour for at least 4 hrs a day
- DVT ppx: Heparin gtt - I am not opposed to transitioning to Eliquis tonight
Pulmonary service will continue to follow along. Follow up with Dr. Amaral on 12/23/2024 at 1:30 PM - I advised to the patient to keep this appt.
Data:
Bilateral lower extremity duplex US 12/01/2024:
Occlusive thrombus in the right greater saphenous vein from the saphenofemoral junction to the calf. Nonocclusive thrombus in the right common femoral vein.
Patient with known pulmonary embolism.
CTA chest 12/01/2024:
1. Positive for pulmonary embolism, with segmental and subsegmental emboli involving all lobes of the lung. No emboli seen within the main pulmonary trunks.
2. Mild elevation of the RV: LV ratio, measuring approximately 1.1, suggestive of mild right heart strain.
3. Multiple lung nodules as detailed above, majority of which are not significantly changed compared to prior CT dated 11/08/2024. The largest nodule seen on prior CT dated 11/08/2024 within the left lower lobe has significantly decreased in size, and
most likely represents rounded atelectasis. Remaining nodules are also likely infectious or inflammatory, however follow-up imaging is suggested for confirmation.
4. Tiny left pleural effusion, new compared to prior study.
5. Unchanged thyroid nodules. Consider dedicated thyroid ultrasound as clinically appropriate.
Transthoracic echocardiogram 12/01/2024:
1. Technically limited study.
2. Ejection fraction is 56% by volumetric assesment.
3. Moderately dilated hypokinetic right ventricle.
4. Trileaflet calcified aortic valve with adequate leaflet excursion.
5. Mild concentric left ventricular hypertrophy.
Total time spent today was 39 minutes for this encounter. Time includes reviewing laboratory test/imaging results, reviewing pertinent medical records, obtaining and reviewing medical history, performing an appropriate exam, ordering medications,
tests and procedures. Time also includes documentation of this encounter, coordinating patient care and communicating with other healthcare professionals. Total time does not include separately billed tests performed on this date of service.
Subjective Data
-
Date of Service:
Date of Service: December 02, 2024
Chief Complaint: Pulmonary Follow Up
Subjective:
Patient was seen and evaluated today at bedside. Disoriented this morning per nurse. Had greater oxygen requirements overnight to 4 L/min. He has since been weaned back down to 3 L/min, and he is saturating 97% with heart rate 68 and BP
03/02/1967. He says he overall feels better. His , Nilda, is present at bedside.
This morning he had urinary retention, and became tachycardic with worsening chest pain and shaking chills with slight confusion when he stood up to urinate. His confusion has since resolved. He did get Dilaudid for the worsening chest pain and
this helped him take deeper breaths after approximately 30-45 minutes.
Review of Systems
General: Other (Negative unless mentioned above)
Objective Data
Data Reviewed
Vital Signs / I&O / Oxygen:
Vital Signs
Temp Pulse Resp BP Pulse Ox
98.1 F 66 18 120/69 96
12/02/24 11:36 12/02/24 12:00 12/02/24 12:00 12/02/24 12:00 12/02/24 12:00
Intake and Output
12/01/24 12/02/24 12/03/24
06:59 06:59 06:59
Intake Total 336 / 448 3811 / 3923 1032 / 1032
Output Total 820 / 820 450 / 450
Balance 336 / 448 2991 / 3103 582 / 582
SaO2 96
Nasal Cannula flow liters per 3
minute
Physical Exam
General: Respiratory Distress (negative), Comfortable, Chills (negative) and Sweats (negative)
HEENT: Normocephalic and Anicteric
Cardiovascular: S1-S2, Rub (negative) and Peripheral Edema (negative)
Respiratory: Wheeze (negative), Crackles (Left base), Rhonchi (negative), Non-Labored Respirations and Stridor (negative)
GI: Soft, Non Distended, Non Tender and Normal Bowel Sounds
Neurology: Awake, Alert and Tremors (negative)
Skin: Warm, Dry, Cyanosis (negative) and Jaundice (negative)
Labs/Micro/Reports
Lab Data
12/02/24 09:47
12/02/24 05:24
Laboratory Results
12/01/24 12/01/24 12/02/24
16:19 23:23 05:24
APTT 70.4 H 86.0 H 74.4 H
Microbiology
11/30/24 23:25 Nasal Swab Influenza Types A & B (CHRISTOPH) - Final
Negative for Influenza A & B, NAAT
Negative results must be combined with clinical observations
and patient history.
Nucleic Acid Amplification test (NAAT)performed on the
[employer] platform.
[2024-12-02 10:36] LABS: Procalcitonin 0.09 ng/ml (0.0-0.25)
--- NOTE | 2024-12-02 11:44 | PTCARENOTE ---
Left lateral chest wall pain with inhalation improved. He is able to take more effective deep breaths. Coarse breath sounds in both bases. Tolerating 3 liters nasal cannula. His was assisted in setting up his patient portal. His was also
provided a copy of his L/E ultrasounds report, and was provided an update regarding the morning.
--- NOTE | 2024-12-02 15:08 | W.PN.HOSP.TC ---
Today's Communication/Plan
-
Attempt to wean off oxygen as tolerates
IV heparin with hope to transition to oral anticoagulation over the next 24 to 48 hours
Bladder scan, may need [place] catheter if persistent retention
UA and reflex to culture
Speech evaluation appreciated
Assessment / Plan
Assessment / Plan
Impression
Patient is a 79y M with PMH significant for ASCVD, hypothyroidism and BPH who presents to ED complaining of chest pain and SOB.
Acute hypoxic respiratory failure
Multiple bilateral pulmonary embolism
Left lower lobe process: Nodule versus pulmonary infarct with small pleural effusion.
Unintentional weight loss
Non-KS troponin elevation in the settings of acute PE
Acute urinary retention
Conditions prior to admission
ASCVD
Hypothyroidism
BPH
Glaucoma
Plan
Acute hypoxic respiratory failure pulse ox 88% on room air on presentation baseline multiple bilateral pulmonary emboli.
Left lower lobe process with nodule, possibly pulmonary infarct and small pleural effusion.
CT scan with possible mild RV strain ratio 1.1.
Continue oxygen supplementation for
Initiated on IV heparin for
Echocardiogram with preserved LVEF with evidence of RV strain
Lower extremity Doppler with right lower extremity DVT
Speech and swallow evaluation
Procalcitonin negative
Empiric antibiotics: Unasyn will be continued monitor temperature curve
Consider repeating chest x-ray and check left chest ultrasound for worsening of left pleural effusion.
With above as well as unintentional weight loss patient is scheduled for PET scan as outpatient
ASCVD
- Prior h/o NSTEMI, no surgeries / stents.
- Not on daily ASA.
- Continue Toprol with holding parameters.
- Continue statin.
- Troponin elevation likely secondary to PE as noted above. Follow to [facility].
Hypothyroidism
- Continue current T4 supplementation.
- Update TFTs
BPH
Acute urinary retention
- Continue dutasteride for now.
- Bladder scan protocol.
- PSA 1.53
Check UA and reflex to culture
Glaucoma
- Continue timolol.
DVT Prophylaxis: On IV Heparin
Code Status: Full
Anticipated Discharge: > 48 hours
Subjective/Interval History
-
Date of Service: December 02, 2024
Objective Data
-
Labs:
Laboratory Results
12/02/24 12/02/24
05:24 09:47
WBC 11.9 H
Hgb 12.8 L
Hct 40.0
Plt Count 340
APTT 74.4 H
Sodium 139
Potassium 3.8
Chloride 108 H
Carbon Dioxide 27
BUN 10
Creatinine 0.7
Glucose 107 H
Calcium 8.7
Vital Signs:
Vital Signs
Temp Pulse Resp BP Pulse Ox
98.1 F 66 18 120/69 96
12/02/24 11:36 12/02/24 12:00 12/02/24 12:00 12/02/24 12:00 12/02/24 12:00
I&O
12/01/24 12/02/24 12/03/24
06:59 06:59 06:59
Intake Total 336 / 448 3811 / 3923 1032 / 1032
Output Total 820 / 820 450 / 450
Balance 336 / 448 2991 / 3103 582 / 582
--- NOTE | 2024-12-02 15:16 | CM ---
Wean O2, IV/heparin with intent to transition to PO anticoagulant, IV/AB, may need [place] persistent urinary retention, speech following. Discharge POC: TBD.
[2024-12-02 18:44] LABS: Urine Character Clear (Clear)
[2024-12-02 19:17] LABS: Urine Squamous Cell 0-2 /LPF (Few); Urine White Cell 0-2 /HPF (0-5)
--- NOTE | 2024-12-02 20:00 | PTCARENOTE ---
on assessment pt very flat but AAOx3, denies pain and SOB at this time, SR on the monitor, hep gtt infusing per orders, 3L NC 98%, reg diet, bed alarm on and call medel in reach
[2024-12-02] MEDS: LIPITOR 20 MG PO (20:32)
[2024-12-02] MEDS: HEPARIN 25000 UNITS/250 ML IV (20:41)
[2024-12-03] VITALS (25 sets, daily range): BP systolic 112–149; BP diastolic 59–90; O2SAT 84–92; BMI 22.7
[2024-12-03] MEDS: UNASYN IV ×4 (02:23→20:32)
[2024-12-03 03:22] LABS: Hematocrit 38.0 % (39.0-52.0); Hemoglobin 12.3 g/dL (13.0-18.0); Mean Corp Hgb Conc. 32.4 g/dL (33.0-37.0); Mean Corpuscular Volume 86.8 fL (80.0-94.0); Nucleated Red Blood Cells % 0 % (-); Platelet Count 295 10^3/uL (130-400); Red Cell Dist. Width 15.7 % (11.5-14.5)
[2024-12-03 03:34] LABS: Blood Urea Nitrogen 9 mg/dl (9-20); Calcium 8.5 mg/dl (8.4-10.2); Carbon Dioxide 25 mmol/L (22-30); Chloride 108 mmol/L (98-107); Estimated Creatinine Clearance 98 ml/min; Glucose 89 mg/dl (70-99); Potassium 3.9 mmol/L (3.5-5.1); Sodium 138 mmol/L (135-145); eGFR > 60.00
[2024-12-03 03:52] LABS: APTT 54.1 Sec (23.4-35.0)
[2024-12-03] MEDS: HEPARIN 5400 UNITS IV (04:51)
[2024-12-03] MEDS: SYNTHROID 50 MCG PO (04:52)
--- NOTE | 2024-12-03 08:20 | PTCARENOTE ---
Received pt laying in bed. He opened his eyes to verbal and tactile stimuli. Flat affect with intermittent U/E's tremors. Left hand #20g protective catheter with Heparin 1500 units/hr, left AC#18g protective catheter flushed an patent. Left FA#20g
protective catheter with LR@80ml/hr. Good peripheral pulses, no edema. Lungs dim in the left base and rhonchi on the right with dim breath sounds. Pulse ox 100% on 3 liters nasal cannula. He was instructed on the use and frequency of the incentive
spirometer. He was able to correctly demonstrate the use to 1000 ml's easily. Occasional dry cough. +BSx4, no BM for several days. Did not want Miralax or other bowel stimulant. He is still having left sided chest pain with deep breathing. Medicated
with Tylenol and Hydromorphone. Informed that we would continue to taper his oxygen and get him out of bed to the chair. He preferred to wait for his to get OOB. Safe environment maintained.
[2024-12-03] MEDS: PROSCAR 5 MG PO (08:25)
[2024-12-03] MEDS: TOPROL XL 50 MG PO (08:25)
[2024-12-03] MEDS: COLACE 100 MG PO ×2 (08:25→19:35)
[2024-12-03] MEDS: TIMOPTIC 0.5% OPHTHALMIC SOLUTION 1 DROP OPHTH (08:28)
[2024-12-03] MEDS: TYLENOL 650 MG PO (08:38)
[2024-12-03] MEDS: DILAUDID 0.5 MG IV (08:39)
--- NOTE | 2024-12-03 09:28 | PN.CDI ---
CDI
- -
CDI:
Physician Documentation Request
Admit Date: 12/01/24 02:55
Dear Doctor,
Patient admitted for PE.
12/02 Radiology Specialist PN: 'Elevated troponin likely due to above with demand ischemia due to type II AL'
12/02 Hospitalist PN: 'Non-AL troponin elevation in the settings of acute PE'
Laboratory Tests
11/30/24 12/01/24 12/01/24
03:43 09:17
Troponin I 0.554 H* 0.823 H* D 0.575 H* D
Please clarify the following regarding the documented myocardial infarction:
Type 2 AL due to demand ischemia
Non-ischemic myocardial injury
Other
Use of terms such as suspected, likely, concern for, or probable (associated with a specific diagnosis that is being evaluated, monitored, or treated as if it exists) are acceptable and can be coded in the inpatient setting, when documented at the
time of discharge.
Thank you,
Yun Ortiz RN, BSN
CDI Specialist
Available via [employer] text
Please use your independent medical judgment in providing your response.
--- NOTE | 2024-12-03 10:40 | W.PN.PUL3 ---
Today's Communication / Plan
-
Heparin drip; recommend transitioning to Eliquis tonight
Case management consulted and Eliquis should be affordable to the patient although it will cost roughly $120�130 a month
Antibiotics given areas of ground glass + nodular opacities seen on CTA chest (which were previously seen on prior CT chest from 11/08/2024 and these nodular opacities have overall improved)
Monitor for fevers
Check sputum Cx if he can produce decent sample
Follow up blood Cx
Repeat echo in about 4 to 6 weeks
Ambulatory pulse oximetry prior to discharge
PT/OT
Outpatient pulmonary office follow-up with Dr. Amaral (12/23/2024 at 1:30 PM)
Pulmonary service will continue to briefly follow along
Assessment
-
Assessment: 79-year-old male with a past medical history of BPH, hyperlipidemia, hypothyroidism, history of colon polyps, history of skin cancer and lung nodules who presents with shortness of breath and chest pain. His shortness of breath has
been ongoing for about 1-2 months, and progressively worsening. He had a CT chest/abdomen/pelvis on 11/08/2024 showing a 3.6 pleural-based nodule in the left lower lobe with other smaller centrilobular nodules seen bilaterally, with bilateral
thyroid nodules and diffuse wall thickening and inflammatory changes adjacent to the urinary bladder + mild prostatic enlargement. He saw us in the pulmonary office on 11/18/2024 and a PET/CT is being arranged. In the ER, he was afebrile with pulse
rate 94, respiratory rate 20, BP 130/78 and he was initially saturating 81% on room air. Initial blood work pertinent for mild leukocytosis to 11.7, troponin 0.554, proBNP 3420, and COVID-19 antigen negative. CXR showed no acute cardiopulmonary
process. CTA chest showed pulmonary emboli within all segmental branches of the lungs bilaterally although no central emboli in the main pulmonary artery on either side. There was evidence of RV strain with RV: LV ratio of 1:1. Also multiple
left-sided thyroid nodules. The previous left lower lobe peripheral nodule which had measured 3.[address] chest from 11/08/2024, now measures 1.1 cm. There was no pathological mediastinal lymphadenopathy. PERT alert called - patient started on
heparin drip in addition to LR, and admitted to the IMU for further care with pulmonary service consulted for additional management/recommendations. IR reviewed case and recommended anticoagulation with no need for IR intervention.
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
Impression:
#Acute submassive PE involving all lobes of the lung bilaterally with RV strain (PESI score: 108 points, class IV = high risk: 4.0 - 11.4 % 30-day mortality)
#Elevated troponin likely due to above with demand ischemia due to type II GA
#Right lower extremity DVT with nonocclusive thrombus in the right common femoral vein; also occlusive thrombus in the right SFJ down to the calf
#Leukocytosis likely reactive due to above
#Febrile illness (resolved since evening of 12/01/2024)
#Former tobacco smoker (quit approximately 40 years ago, smoking 0.5 PPD x 20 years)
#Hypothyroidism
#BPH without LUTS
#History of skin cancer
#History of colon polyps
#Pulmonary nodules including a left lower lobe posterior lung nodule, with formed component measuring 8 x 8 mm, and previously on CT chest from 11/08/2024, it measured 11 x 12 mm
#Seasonal allergies (Spring season - allergic to grass, per pt)
Plan:
- Continue with systemic parenteral anticoagulation with heparin drip with eventual plans to transition to NOAC, preferably Eliquis, after 24-48 hours
- Although he does have evidence of RV strain with high clot burden, he remains hemodynamically stable, on minimal supplemental oxygen and is not tachycardic. No need for catheter directed thrombolysis or other vascular intervention at this time
- Transthoracic echo performed on 12/01, showing a moderately dilated, hypokinetic RV although there is no evidence of TR. Recommend repeat echo in approximately 4 to 6 weeks to assure the RV systolic function improves.
- Peripheral lower extremity duplex US performed 12/01/2024 showed non-occlusive thrombus in the right common femoral vein, and a superficial occlusive thrombus in the right GSV from the SFJ down to the calf - > continue AC as stated above
- Recommend outpatient hematology evaluation to discuss duration of AC needed and to consider hypercoagulable workup
- Continue following up with us in the office to continue working up his left lower lobe pleural-based nodule, although it has decreased in size from 3.6 cm now down to 1.3 cm, suggestive of rounded atelectasis; the more formed component of this
nodule had previously measured 11 x 12 mm, and now measures 8 x 8 mm--> he was pending a PET/CT, which I still reinforced to him that he should get this unless told otherwise by Dr. Amaral (his funding coordinator).
- Ultimately will defer to Dr. Amaral if a biopsy of this LLL nodule is still needed
- Maintain SpO2 >90-94% using supplemental oxygen, weaning down as tolerated
- Recommend ambulatory pulse oximetry prior to discharge
- Outpatient pulmonary office already scheduled for 12/23/2024 at 1:[address] Amaral; recommend full PFTs in about 4 to 6 weeks, in addition to 6MWT (dread if he is DC'd on O2)
- Ok for him to be up OOB now that it has been > 24 hours since his acute PE was started on Tx with heparin gtt with aPTT at goal
- Given his recent fevers, continue with Unasyn
- Overall, the extent of his bilateral subpleural nodular opacities seen in his right lower lobe, lingula, RML + posterior right upper lobe have all improved
- Blood cultures collected 12/02 show NGTD
- If patient able to produce a decent sputum sample, then send a sputum culture; strep pneumonia + Legionella urine antigens both negative
- Trend WBC and monitor temperature curve
- CXR checked today shows slightly worsening left-sided pleural effusion compared to CXR done on 11/30/2024 � chest ultrasound is pending
- Maintain MAP>65
- Replete electrolytes with K>4, Mg>2
- Maintain euglycemia with goal BG >100 and <180
- Trend H/H and transfuse if needed to keep Hb>7g/dL; keep plt>50k (while on heparin gtt)
- prn nebulized bronchodilators - not currently bronchospastic
- Incentive spirometer encouraged 10x per hour for at least 4 hrs a day
- DVT ppx: Heparin gtt - recommend transitioning to Eliquis tonight
Pulmonary service will continue to briefly follow along. Follow up with Dr. Amaral on 12/23/2024 at 1:30 PM - I advised to the patient to keep this appt.
Data:
Bilateral lower extremity duplex US 12/01/2024:
Occlusive thrombus in the right greater saphenous vein from the saphenofemoral junction to the calf. Nonocclusive thrombus in the right common femoral vein.
Patient with known pulmonary embolism.
CTA chest 12/01/2024:
1. Positive for pulmonary embolism, with segmental and subsegmental emboli involving all lobes of the lung. No emboli seen within the main pulmonary trunks.
2. Mild elevation of the RV: LV ratio, measuring approximately 1.1, suggestive of mild right heart strain.
3. Multiple lung nodules as detailed above, majority of which are not significantly changed compared to prior CT dated 11/08/2024. The largest nodule seen on prior CT dated 11/08/2024 within the left lower lobe has significantly decreased in size, and
most likely represents rounded atelectasis. Remaining nodules are also likely infectious or inflammatory, however follow-up imaging is suggested for confirmation.
4. Tiny left pleural effusion, new compared to prior study.
5. Unchanged thyroid nodules. Consider dedicated thyroid ultrasound as clinically appropriate.
Transthoracic echocardiogram 12/01/2024:
1. Technically limited study.
2. Ejection fraction is 56% by volumetric assesment.
3. Moderately dilated hypokinetic right ventricle.
4. Trileaflet calcified aortic valve with adequate leaflet excursion.
5. Mild concentric left ventricular hypertrophy.
CXR 12/03/2024:
Small left pleural effusion.
Scattered ill-defined opacities bilaterally which likely correspond tree-in-bud airspace disease seen on prior CT.
Total time spent today was 32 minutes for this encounter. Time includes reviewing laboratory test/imaging results, reviewing pertinent medical records, obtaining and reviewing medical history, performing an appropriate exam, ordering medications,
tests and procedures. Time also includes documentation of this encounter, coordinating patient care and communicating with other healthcare professionals. Total time does not include separately billed tests performed on this date of service.
Subjective Data
-
Date of Service:
Date of Service: December 03, 2024
Chief Complaint: Pulmonary Follow Up
Subjective:
Patient was seen and evaluated today at bedside. Denies cough, denies shortness of breath when laying flat. Says he feels okay. He is sitting in chair no acute distress. at bedside.
Review of Systems
General: Other (Negative unless mentioned above)
Objective Data
Data Reviewed
Vital Signs / I&O / Oxygen:
Vital Signs
Temp Pulse Resp BP Pulse Ox
97.8 F 73 17 138/74 94
12/03/24 09:38 12/03/24 08:25 12/03/24 08:00 12/03/24 08:25 12/03/24 09:38
Intake and Output
12/02/24 12/03/24 12/04/24
06:59 06:59 06:59
Intake Total 3811 / 3923 3019 / 3114 405 / 405
Output Total 820 / 820 1415 / 1565 425 / 425
Balance 2991 / 3103 1604 / 1549 -20 / -20
SaO2 94
Nasal Cannula flow liters per 3
minute
Physical Exam
General: Respiratory Distress (negative), Comfortable, Chills (negative) and Sweats (negative)
HEENT: Normocephalic and Anicteric
Cardiovascular: S1-S2, Rub (negative) and Peripheral Edema (negative)
Respiratory: Wheeze (negative), Crackles (Left middle to left lower lung field), Rhonchi (negative), Non-Labored Respirations and Stridor (negative)
GI: Soft, Non Distended, Non Tender and Normal Bowel Sounds
Neurology: Awake, Alert and Tremors (negative)
Skin: Warm, Dry, Cyanosis (negative) and Jaundice (negative)
Labs/Micro/Reports
Lab Data
12/03/24 02:32
12/03/24 02:32
Laboratory Results
12/03/24
03:26
APTT 54.1 H
Microbiology
12/02/24 09:47 Blood/Venous Blood Culture - Preliminary
No Growth in 24 hours- Final report to follow
12/02/24 18:33 Urine Legionella Urinary Antigen - Final
Negative for Legionella pneumophila Serogroup 1 antigen.
A negative result does not rule out the possiblity of
Legionella infection due to other serogroups or species of
Legionella. Clinical correlation is recommended.
12/02/24 18:33 Urine Streptococcus pneumoniae Antigen (M - Final
Negative for Streptococcus pneumoniae antigen.
A negative result does not exclude infection with
Streptococcus pneumoniae. Clinical correlation is
recommended.
11/30/24 23:25 Nasal Swab Influenza Types A & B (CHRISTOPH) - Final
Negative for Influenza A & B, NAAT
Negative results must be combined with clinical observations
and patient history.
Nucleic Acid Amplification test (NAAT)performed on the
[employer] platform.
--- NOTE | 2024-12-03 10:50 | W.PN.HOSP.TC ---
Addendum entered and electronically signed by Austyn Cooper MD 12/08/24 14:32:
Elevated troponin secondary to nonischemic myocardial injury
Original Note:
Today's Communication/Plan
-
IV heparin
Repeat chest x-ray
Left chest ultrasound to assess for pleural effusion
Continue antibiotics pending blood cultures and follow temperature curve
Stop IV fluids
Continue Vallejo catheter
PT assessment
Assessment / Plan
Assessment / Plan
Impression
Patient is a 79y M with PMH significant for ASCVD, hypothyroidism and BPH who presents to ED complaining of chest pain and SOB.
Acute hypoxic respiratory failure
Multiple bilateral pulmonary embolism
Left lower lobe process: Nodule versus pulmonary infarct with small pleural effusion.
Unintentional weight loss
Non-IN troponin elevation in the settings of acute PE
Acute urinary retention
Conditions prior to admission
ASCVD
Hypothyroidism
BPH
Glaucoma
Plan
Acute hypoxic respiratory failure pulse ox 88% on room air on presentation baseline multiple bilateral pulmonary emboli.
Left lower lobe process with nodule, possibly pulmonary infarct and small pleural effusion.
CT scan with possible mild RV strain ratio 1.1.
Continue oxygen supplementation for
Initiated on IV heparin for
Echocardiogram with preserved LVEF with evidence of RV strain
Lower extremity Doppler with right lower extremity DVT
Speech and swallow evaluation so far with no overt aspiration
Procalcitonin negative
Empiric antibiotics: Unasyn will be continued monitor temperature curve and pending blood cultures
Overall improved oxygen requirements down to 2 L, although with persistent left lower back pain on inspiration.
Follow-up chest x-ray on 12/03
Left chest ultrasound to assess for pleural effusion
ASCVD
- Prior h/o NSTEMI, no surgeries / stents.
- Not on daily ASA.
- Continue Toprol with holding parameters.
- Continue statin.
- Troponin elevation likely secondary to PE as noted above. Follow to [facility].
Hypothyroidism
- Continue current T4 supplementation.
- Update TFTs
BPH
Acute urinary retention. Vallejo catheter placed on 12/02
- Continue dutasteride for now.
- Bladder scan protocol.
- PSA 1.53
Urinalysis not consistent with infection
Glaucoma
- Continue timolol.
DVT Prophylaxis: On IV Heparin
Code Status: Full
Anticipated Discharge: > 48 hours
Subjective/Interval History
-
Date of Service: December 03, 2024
Objective Data
-
Labs:
Laboratory Results
12/03/24 12/03/24 12/03/24
02:32 03:26 11:00
WBC 9.0
Hgb 12.3 L
Hct 38.0 L
Plt Count 295
APTT 54.1 H Pending
Sodium 138
Potassium 3.9
Chloride 108 H
Carbon Dioxide 25
BUN 9
Creatinine 0.6 L
Glucose 89
Calcium 8.5
Vital Signs:
Vital Signs
Temp Pulse Resp BP Pulse Ox
97.8 F 73 17 138/74 94
12/03/24 09:38 12/03/24 08:25 12/03/24 08:00 12/03/24 08:25 12/03/24 09:38
I&O
12/02/24 12/03/24 12/04/24
06:59 06:59 06:59
Intake Total 3811 / 3923 3019 / 3114 405 / 405
Output Total 820 / 820 1415 / 1565 425 / 425
Balance 2991 / 3103 1604 / 1549 -20 / -20
Physical Exam
-
General: Well Developed and No Apparent Distress
HEENT: Normocephalic, Atraumatic and Moist Mucous Membranes
Respiratory: Clear to Auscultation
Cardiac: Regular Rhythm and S1/S2; Negative Murmur, Rub or Gallop
GI: Soft, Nontender, Nondistended and Normal Bowel Sounds; Negative Organomegaly
Rectal: Deferred by Provider
Musculoskeletal: No Clubbing, No Cyanosis and No Edema
Skin: Negative Rash
Neuro: Nonfocal/Grossly Intact
[2024-12-03] MEDS: LR IV (12:21)
--- NOTE | 2024-12-03 13:18 | CM ---
Addendum entered by Milagro Vasquez 12/03/24 13:21:
Patient is currently on 3 liters of oxygen, will need to follow for any oxygen needs at discharge.
Original Note:
Patient to return to home with spouse when stable, cost of Eliquis is $124.17 per month, 30 day free coupon provided.
Plan; Home with spouse when stable.
[2024-12-03 13:28] LABS: APTT 86.0 Sec (23.4-35.0)
[2024-12-03] MEDS: REFRESH EYE DROPS (PF) 1 DROPS BOTH EYES (15:12)
--- NOTE | 2024-12-03 15:20 | PTCARENOTE ---
Pt stood in front of the chair and shifted his weight right to left and marched in place. RA pulse ox 94% at rest then desaturated to 84% and quickly rebounded to 94% in under 5 minutes. He denied chest pain with that and did not appear SOB. RR
remained 18.
[2024-12-03] MEDS: HEPARIN 25000 UNITS/250 ML IV (15:31)
--- NOTE | 2024-12-03 16:42 | W.PN.UPDATE ---
Update Note
Progress Note Update
Respiratory status stable and patient is off supplemental oxygen at rest.
Continue to monitor and reassess for home O2 requirements on 12/04
Follow-up chest x-ray and ultrasound showed minimal pleural effusion.
Will transition to oral anticoagulation with Eliquis
Transition to telemetry
--- NOTE | 2024-12-03 18:15 | PTCARENOTE ---
The pt and his are aware we are transitioning to Eliquis @ 8pm and will bridge with the Heparin drip for an additional hour then discontinue Heparin drip. They verbalized their understanding. The pt remains in the chair and has his call medel
within reach when he is ready to get back to bed.
--- NOTE | 2024-12-03 19:00 | PTCARENOTE ---
on assessment pt OOB to chair, AAOx3, some upper tremors noted, SR/SB on the monitor, hep to be D/C at 2100 and started on Eliquis, RA 93%, calloway in place, call medel in reach, no complaints at this time
[2024-12-03] MEDS: ELIQUIS 10 MG PO (19:35)
[2024-12-03] MEDS: LIPITOR 20 MG PO (19:35)
[2024-12-04] VITALS (10 sets, daily range): BP systolic 113–165; BP diastolic 67–75; PULSE 62; O2SAT 98–99; BMI 22.2
--- NOTE | 2024-12-04 01:40 | PTCARENOTE ---
report given to floor RN
--- NOTE | 2024-12-04 02:40 | PTCARENOTE ---
Received report and patient from Thierry RN. Patient AAO*3, VSS, patient denies any chest pain or shortness of breath. Patient oriented to room. Call medel within reach.
[2024-12-04] MEDS: UNASYN IV ×4 (03:57→21:05)
[2024-12-04] MEDS: SYNTHROID 50 MCG PO (06:01)
[2024-12-04 06:11] LABS: Hematocrit 36.3 % (39.0-52.0); Hemoglobin 12.1 g/dL (13.0-18.0); Mean Corp Hgb Conc. 33.3 g/dL (33.0-37.0); Mean Corpuscular Volume 84.2 fL (80.0-94.0); Nucleated Red Blood Cells % 0 % (-); Platelet Count 354 10^3/uL (130-400); Red Cell Dist. Width 15.0 % (11.5-14.5)
[2024-12-04 06:34] LABS: Blood Urea Nitrogen 6 mg/dl (9-20); Calcium 8.8 mg/dl (8.4-10.2); Carbon Dioxide 26 mmol/L (22-30); Chloride 107 mmol/L (98-107); Estimated Creatinine Clearance 101 ml/min; Glucose 98 mg/dl (70-99); Potassium 3.5 mmol/L (3.5-5.1); Sodium 138 mmol/L (135-145); eGFR > 60.00
[2024-12-04] MEDS: PROSCAR 5 MG PO (08:51)
[2024-12-04] MEDS: COLACE 100 MG PO ×2 (08:51→20:09)
[2024-12-04] MEDS: TOPROL XL 50 MG PO (08:51)
[2024-12-04] MEDS: TIMOPTIC 0.5% OPHTHALMIC SOLUTION 1 DROP OPHTH (08:52)
[2024-12-04] MEDS: ELIQUIS 10 MG PO ×2 (08:52→20:09)
[2024-12-04] MEDS: REFRESH EYE DROPS (PF) 1 DROPS BOTH EYES (09:32)
--- NOTE | 2024-12-04 10:20 | W.PN.HOSP.TC ---
Today's Communication/Plan
-
IV antibiotics. Oxygen supplementation. Eye and mouth local treatment
Assessment / Plan
Assessment / Plan
Physical exam:
General: Acutely ill
HEENT: Normocephalic, Atraumatic and Moist Mucous Membranes. Conjunctiva redness and clear discharge from both eyes. Left corner mouth vesicular rash.
Respiratory: Decreased breath sounds bilaterally; Negative Wheezes, Rales or Rhonchi
Cardiac: Regular Rhythm and S1/S2
GI: Soft, Nontender and Nondistended
Musculoskeletal: No Clubbing, No Cyanosis and No Edema
Neuro: Awake, Alert and Oriented, no neurological deficits, some cognitive deficits
Psych: Calm
Impression
Patient is a 79y M with PMH significant for ASCVD, hypothyroidism and BPH who presents to ED complaining of chest pain and SOB.
Acute hypoxic respiratory failure
Multiple bilateral pulmonary embolism
Left lower lobe process: Nodule versus pulmonary infarct with small pleural effusion.
Unintentional weight loss
Non-AR troponin elevation in the settings of acute PE
Acute urinary retention
Conditions prior to admission
ASCVD
Hypothyroidism
BPH
Glaucoma
Plan
Acute hypoxic respiratory failure pulse ox 88% on room air on presentation baseline multiple bilateral pulmonary emboli.
Left lower lobe process with nodule, possibly pulmonary infarct and small pleural effusion.
CT scan with possible mild RV strain ratio 1.1.
Continue oxygen supplementation for
Initiated on IV heparin for
Echocardiogram with preserved LVEF with evidence of RV strain
Lower extremity Doppler with right lower extremity DVT
Speech and swallow evaluation so far with no overt aspiration
Procalcitonin negative
Empiric antibiotics: Unasyn will be continued monitor temperature curve and pending blood cultures
Overall improved oxygen requirements down to 2 L, although with persistent left lower back pain on inspiration.
Follow-up chest x-ray on 12/03
Left chest ultrasound to assess for pleural effusion
ASCVD
- Prior h/o NSTEMI, no surgeries / stents.
- Not on daily ASA.
- Continue Toprol with holding parameters.
- Continue statin.
- Troponin elevation likely secondary to PE as noted above. Follow to [facility].
Hypothyroidism
- Continue current T4 supplementation.
- Update TFTs
BPH
Acute urinary retention. Vallejo catheter placed on 12/02
- Continue dutasteride for now.
- Bladder scan protocol.
- PSA 1.53
Urinalysis not consistent with infection
Glaucoma
- Continue timolol.
DVT Prophylaxis: On IV Heparin
Code Status: Full
Total time spent on today's encounter was 52 minutes which included time spent in counseling the patient/family regarding diagnosis and treatment plan as listed above, goals of care, and symptom management. Case was discussed with nursing staff,
specialists, and care coordinators/case management. All labs and imaging personally reviewed by me. Remainder the time spent in detailed review of previous records, lab data, imaging, and other medical provider documentation.
Anticipated Discharge: 24 - 48 hours
Subjective/Interval History
-
Date of Service: December 04, 2024
Patient complains of eyes drainage and redness and also discomfort left lip area. He is back on supplemental oxygen. No chest pain. Afebrile
Objective Data
-
Labs:
Laboratory Results
12/04/24
05:39
WBC 8.2
Hgb 12.1 L
Hct 36.3 L
Plt Count 354
Sodium 138
Potassium 3.5
Chloride 107
Carbon Dioxide 26
BUN 6 L
Creatinine 0.6 L
Glucose 98
Calcium 8.8
Vital Signs:
Vital Signs
Temp Pulse Resp BP Pulse Ox
99.3 F 65 16 165/75 96
12/04/24 07:15 12/04/24 08:51 12/04/24 07:15 12/04/24 08:51 12/04/24 07:15
I&O
12/03/24 12/04/24 12/05/24
06:59 06:59 06:59
Intake Total 3019 / 3114 1485 / 1485
Output Total 1415 / 1565 1999
Balance 1604 / 1549 -515 / -515
--- NOTE | 2024-12-04 14:41 | W.PN.PUL3 ---
Today's Communication / Plan
-
Continue Eliquis
Case management consulted and Eliquis should be affordable to the patient although it will cost roughly $120�130 a month
Antibiotics given areas of ground glass + nodular opacities seen on CTA chest (which were previously seen on prior CT chest from 11/08/2024 and these nodular opacities have overall improved)
Monitor for fevers
Check sputum Cx if he can produce decent sample
Follow up blood Cx (shows NGTD)
Repeat echo in about 4 to 6 weeks
Ambulatory pulse oximetry prior to discharge performed today (12/04/2024) showing he needs 2L/min with activity (see details below)
PT/OT
Outpatient pulmonary office follow-up with Dr. Amaral (12/23/2024 at 1:30 PM)
No additional recommendations at this time � signing off. Call back with any questions or concerns.
Assessment
-
Assessment: 79-year-old male with a past medical history of BPH, hyperlipidemia, hypothyroidism, history of colon polyps, history of skin cancer and lung nodules who presents with shortness of breath and chest pain. His shortness of breath has
been ongoing for about 1-2 months, and progressively worsening. He had a CT chest/abdomen/pelvis on 11/08/2024 showing a 3.6 pleural-based nodule in the left lower lobe with other smaller centrilobular nodules seen bilaterally, with bilateral
thyroid nodules and diffuse wall thickening and inflammatory changes adjacent to the urinary bladder + mild prostatic enlargement. He saw us in the pulmonary office on 11/18/2024 and a PET/CT is being arranged. In the ER, he was afebrile with pulse
rate 94, respiratory rate 20, BP 130/78 and he was initially saturating 81% on room air. Initial blood work pertinent for mild leukocytosis to 11.7, troponin 0.554, proBNP 3420, and COVID-19 antigen negative. CXR showed no acute cardiopulmonary
process. CTA chest showed pulmonary emboli within all segmental branches of the lungs bilaterally although no central emboli in the main pulmonary artery on either side. There was evidence of RV strain with RV: LV ratio of 1:1. Also multiple
left-sided thyroid nodules. The previous left lower lobe peripheral nodule which had measured 3.[address] chest from 11/08/2024, now measures 1.1 cm. There was no pathological mediastinal lymphadenopathy. PERT alert called - patient started on
heparin drip in addition to LR, and admitted to the IMU for further care with pulmonary service consulted for additional management/recommendations. IR reviewed case and recommended anticoagulation with no need for IR intervention.
Chronic conditions [employer]: BPH, hypothyroidism, hyperlipidemia, history of NE, colon polyps, history of skin cancer, pulmonary nodules
Impression:
#Acute submassive PE involving all lobes of the lung bilaterally with RV strain (PESI score: 108 points, class IV = high risk: 4.0 - 11.4 % 30-day mortality)
#Elevated troponin likely due to above with demand ischemia due to type II NE
#Right lower extremity DVT with nonocclusive thrombus in the right common femoral vein; also occlusive thrombus in the right SFJ down to the calf
#Leukocytosis likely reactive due to above � now resolved
#Febrile illness (resolved since evening of 12/01/2024)
#Former tobacco smoker (quit approximately 40 years ago, smoking 0.5 PPD x 20 years)
#Hypothyroidism
#BPH without LUTS
#History of skin cancer
#History of colon polyps
#Pulmonary nodules including a left lower lobe posterior lung nodule, with formed component measuring 8 x 8 mm, and previously on CT chest from 11/08/2024, it measured 11 x 12 mm
#Seasonal allergies (Spring season - allergic to grass, per pt)
Plan:
- Continue with AC, now on Eliquis s/p heparin gtt
- Although he does have evidence of RV strain with high clot burden, he remains hemodynamically stable, on minimal supplemental oxygen and is not tachycardic. There remains no need for catheter directed thrombolysis or other vascular intervention
at this time
- Transthoracic echo performed on 12/01, showing a moderately dilated, hypokinetic RV although there is no evidence of TR. Recommend repeat echo in approximately 4 to 6 weeks to assure the RV systolic function improves.
- Peripheral lower extremity duplex US performed 12/01/2024 showed non-occlusive thrombus in the right common femoral vein, and a superficial occlusive thrombus in the right GSV from the SFJ down to the calf - > continue AC as stated above
- Recommend outpatient hematology evaluation to discuss duration of AC needed and to consider hypercoagulable workup
- Continue following up with us in the office to continue working up his left lower lobe pleural-based nodule, although it has decreased in size from 3.6 cm now down to 1.3 cm, suggestive of rounded atelectasis; the more formed component of this
nodule had previously measured 11 x 12 mm, and now measures 8 x 8 mm--> he was pending a PET/CT, which I still reinforced to him to get unless told otherwise by Dr. Amaral (his v groove cutter).
- Ultimately will defer to Dr. Amaral if a biopsy of this LLL nodule is still needed
- Maintain SpO2 >90-94% using supplemental oxygen, weaning down as tolerated
- Ambulatory pulse oximetry performed today shows: oxygen saturation on room air at rest: 93% and O2-saturation with ambulation on room air: Cathryn SpO2: 88% after walking 50 feet. With 2 L/min nasal cannula applied during ambulation, cathryn SpO2:
92% after walking 50 feet.
- Recommend 2L/min with ambulation - -> case management needs to be consulted to set him up for home O2
- Outpatient pulmonary office already scheduled for 12/23/2024 at 1:[address] Amaral; recommend full PFTs in about 4 to 6 weeks, in addition to 6MWT (dread if he is DC'd on O2)
- Ok for him to be up OOB now that it has been > 24 hours since his acute PE was started on Tx with heparin gtt with aPTT at goal
- Given his recent fevers, continue with Unasyn
- Overall, the extent of his bilateral subpleural nodular opacities seen in his right lower lobe, lingula, RML + posterior right upper lobe have all improved
- Blood cultures collected 12/02 show NGTD
- If patient able to produce a decent sputum sample, then send a sputum culture; strep pneumonia + Legionella urine antigens both negative
- Trend WBC and monitor temperature curve
- CXR checked yesterday shows slightly worsening left-sided pleural effusion compared to CXR done on 11/30/2024 � chest ultrasound shows small effusion - too small to tap
- Maintain MAP>65
- Replete electrolytes with K>4, Mg>2
- Maintain euglycemia with goal BG >100 and <180
- Trend H/H and transfuse if needed to keep Hb>7g/dL; keep plt>50k (while on AC)
- prn nebulized bronchodilators - not currently bronchospastic
- Incentive spirometer encouraged 10x per hour for at least 4 hrs a day
- DVT ppx: Eliquis
Follow up with Dr. Amaral on 12/23/2024 at 1:30 PM - I advised to the patient to keep this appt.
No additional recommendations at this time. Pulmonary service will now sign off. Please call back with any questions or concerns.
Data:
Bilateral lower extremity duplex US 12/01/2024:
Occlusive thrombus in the right greater saphenous vein from the saphenofemoral junction to the calf. Nonocclusive thrombus in the right common femoral vein.
Patient with known pulmonary embolism.
CTA chest 12/01/2024:
1. Positive for pulmonary embolism, with segmental and subsegmental emboli involving all lobes of the lung. No emboli seen within the main pulmonary trunks.
2. Mild elevation of the RV: LV ratio, measuring approximately 1.1, suggestive of mild right heart strain.
3. Multiple lung nodules as detailed above, majority of which are not significantly changed compared to prior CT dated 11/08/2024. The largest nodule seen on prior CT dated 11/08/2024 within the left lower lobe has significantly decreased in size, and
most likely represents rounded atelectasis. Remaining nodules are also likely infectious or inflammatory, however follow-up imaging is suggested for confirmation.
4. Tiny left pleural effusion, new compared to prior study.
5. Unchanged thyroid nodules. Consider dedicated thyroid ultrasound as clinically appropriate.
Transthoracic echocardiogram 12/01/2024:
1. Technically limited study.
2. Ejection fraction is 56% by volumetric assesment.
3. Moderately dilated hypokinetic right ventricle.
4. Trileaflet calcified aortic valve with adequate leaflet excursion.
5. Mild concentric left ventricular hypertrophy.
CXR 12/03/2024:
Small left pleural effusion.
Scattered ill-defined opacities bilaterally which likely correspond tree-in-bud airspace disease seen on prior CT.
(patient was seen and evaluated on 12/04/2024). Total time spent today was 28 minutes for this encounter. Time includes reviewing laboratory test/imaging results, reviewing pertinent medical records, obtaining and reviewing medical history,
performing an appropriate exam, ordering medications, tests and procedures. Time also includes documentation of this encounter, coordinating patient care and communicating with other healthcare professionals. Total time does not include separately
billed tests performed on this date of service.
Subjective Data
-
Date of Service:
Date of Service: December 04, 2024
Chief Complaint: Pulmonary Follow Up
Subjective:
Patient seen and evaluated today at bedside (late note entry). Currently on room air, breathing comfortably. He says he feels well overall. All questions answered. He has no complaints.
Review of Systems
General: Other (Negative unless mentioned above)
Objective Data
Data Reviewed
Vital Signs / I&O / Oxygen:
Vital Signs
Temp Pulse Resp BP Pulse Ox
99.3 F 65 16 165/75 96
12/04/24 07:15 12/04/24 08:51 12/04/24 07:15 12/04/24 08:51 12/04/24 07:15
Intake and Output
12/03/24 12/04/24 12/05/24
06:59 06:59 06:59
Intake Total 3019 / 3114 1485 / 1485
Output Total 1415 / 1565 1999
Balance 1604 / 1549 -515 / -515
SaO2 96
Nasal Cannula flow liters per 2
minute
Physical Exam
General: Respiratory Distress (negative), Comfortable, Chills (negative) and Sweats (negative)
HEENT: Normocephalic and Anicteric
Cardiovascular: S1-S2, Rub (negative) and Peripheral Edema (negative)
Respiratory: Wheeze (negative), Crackles (Left middle to left lower lung field), Rhonchi (negative), Non-Labored Respirations and Stridor (negative)
GI: Soft, Non Distended, Non Tender and Normal Bowel Sounds
Neurology: Awake, Alert, Oriented and Tremors (negative)
Skin: Warm, Dry, Cyanosis (negative) and Jaundice (negative)
Labs/Micro/Reports
Lab Data
12/04/24 05:39
12/04/24 05:39
Laboratory Results
12/03/24 12/03/24
13:06 19:00
APTT 86.0 H Cancelled
Microbiology
12/02/24 10:07 Blood/Venous Blood Culture - Preliminary
No Growth in 48 hours- Final report to follow
12/02/24 09:47 Blood/Venous Blood Culture - Preliminary
No Growth in 48 hours- Final report to follow
12/02/24 18:33 Urine Legionella Urinary Antigen - Final
Negative for Legionella pneumophila Serogroup 1 antigen.
A negative result does not rule out the possiblity of
Legionella infection due to other serogroups or species of
Legionella. Clinical correlation is recommended.
12/02/24 18:33 Urine Streptococcus pneumoniae Antigen (M - Final
Negative for Streptococcus pneumoniae antigen.
A negative result does not exclude infection with
Streptococcus pneumoniae. Clinical correlation is
recommended.
[2024-12-04] MEDS: REFRESH EYE DROPS (PF) 1 DROPS OPHTH ×3 (14:46→21:06)
[2024-12-04] MEDS: ZOVIRAX OINTMENT 5% 1 APPLIC TOPICAL ×3 (14:47→21:07)
[2024-12-04] MEDS: LIPITOR 20 MG PO (21:06)
[2024-12-05] MEDS: UNASYN IV ×2 (03:11→08:11)
[2024-12-05 03:23] VITALS: BP 151/81
[2024-12-05] MEDS: SYNTHROID 50 MCG PO (05:26)
[2024-12-05 06:00] VITALS: BMI 21.9
[2024-12-05 07:21] LABS: Hematocrit 35.6 % (39.0-52.0); Hemoglobin 12.0 g/dL (13.0-18.0); Mean Corp Hgb Conc. 33.7 g/dL (33.0-37.0); Mean Corpuscular Volume 83.2 fL (80.0-94.0); Platelet Count 390 10^3/uL (130-400); Red Cell Dist. Width 15.1 % (11.5-14.5)
[2024-12-05 07:38] LABS: Blood Urea Nitrogen 4 mg/dl (9-20); Calcium 8.7 mg/dl (8.4-10.2); Carbon Dioxide 23 mmol/L (22-30); Chloride 110 mmol/L (98-107); Estimated Creatinine Clearance 99 ml/min; Glucose 100 mg/dl (70-99); Potassium 3.4 mmol/L (3.5-5.1); Sodium 138 mmol/L (135-145); eGFR > 60.00
[2024-12-05 07:47] VITALS: BP 155/75
[2024-12-05] MEDS: REFRESH EYE DROPS (PF) 1 DROPS OPHTH ×2 (08:11→12:37)
[2024-12-05] MEDS: ELIQUIS 10 MG PO (08:12)
[2024-12-05] MEDS: COLACE 100 MG PO (08:12)
[2024-12-05] MEDS: PROSCAR 5 MG PO (08:12)
[2024-12-05] MEDS: ZOVIRAX OINTMENT 5% 1 APPLIC TOPICAL ×2 (08:15→11:43)
[2024-12-05] MEDS: TIMOPTIC 0.5% OPHTHALMIC SOLUTION 1 DROP OPHTH (08:15)
[2024-12-05] MEDS: TOPROL XL 50 MG PO (08:28)
[2024-12-05] MEDS: KCL 40 MEQ PO (09:38)
--- NOTE | 2024-12-05 10:51 | W.PN.HOSP.TC ---
Today's Communication/Plan
-
Discharge planning today
Assessment / Plan
Assessment / Plan
Physical exam:
General: No acute distress
HEENT: Normocephalic, Atraumatic and Moist Mucous Membranes. Conjunctiva redness and clear discharge from both eyes. Left corner mouth vesicular rash much diminished.
Respiratory: Decreased breath sounds bilaterally; Negative Wheezes, Rales or Rhonchi
Cardiac: Regular Rhythm and S1/S2
GI: Soft, Nontender and Nondistended
Musculoskeletal: No Clubbing, No Cyanosis and No Edema
Neuro: Awake, Alert and Oriented, no neurological deficits, some cognitive deficits
Psych: Calm
Impression
Patient is a 79y M with PMH significant for ASCVD, hypothyroidism and BPH who presents to ED complaining of chest pain and SOB.
Acute hypoxic respiratory failure
Multiple bilateral pulmonary embolism
Left lower lobe process: Nodule versus pulmonary infarct with small pleural effusion.
Unintentional weight loss
Non-[place] troponin elevation in the settings of acute PE
Acute urinary retention
Conditions prior to admission
ASCVD
Hypothyroidism
BPH
Glaucoma
Plan
Update today 12/05:
Patient on room air
Continue oral anticoagulant
Switch IV antibiotics to oral
Discussed need for follow-up with pulmonary for possible PET scan as outpatient and hematology oncology evaluation and follow-up echocardiograms with patient and family at bedside.
Plan to discharge today
Prior to today:
Acute hypoxic respiratory failure pulse ox 88% on room air on presentation baseline multiple bilateral pulmonary emboli.
Left lower lobe process with nodule, possibly pulmonary infarct and small pleural effusion.
CT scan with possible mild RV strain ratio 1.1.
Continue oxygen supplementation for
Initiated on IV heparin for
Echocardiogram with preserved LVEF with evidence of RV strain
Lower extremity Doppler with right lower extremity DVT
Speech and swallow evaluation so far with no overt aspiration
Procalcitonin negative
Empiric antibiotics: Unasyn will be continued monitor temperature curve and pending blood cultures
Overall improved oxygen requirements down to 2 L, although with persistent left lower back pain on inspiration.
Follow-up chest x-ray on 12/03
Left chest ultrasound to assess for pleural effusion
ASCVD
- Prior h/o NSTEMI, no surgeries / stents.
- Not on daily ASA.
- Continue Toprol with holding parameters.
- Continue statin.
- Troponin elevation likely secondary to PE as noted above. Follow to [facility].
Hypothyroidism
- Continue current T4 supplementation.
- Update TFTs
BPH
Acute urinary retention. Vallejo catheter placed on 12/02
- Continue dutasteride for now.
- Bladder scan protocol.
- PSA 1.53
Urinalysis not consistent with infection
Glaucoma
- Continue timolol.
DVT Prophylaxis: On Eliquis
Code Status: Full
Total time spent on today's encounter was 35 minutes which included time spent in counseling the patient/family regarding diagnosis and treatment plan as listed above, goals of care, and symptom management. Case was discussed with nursing staff,
specialists, and care coordinators/case management. All labs and imaging personally reviewed by me. Remainder the time spent in detailed review of previous records, lab data, imaging, and other medical provider documentation.
Anticipated Discharge: Today
Subjective/Interval History
-
Date of Service: December 05, 2024
Patient on room air. No chest pain or shortness of breath.
Objective Data
-
Labs:
Laboratory Results
12/05/24
06:28
WBC 7.2
Hgb 12.0 L
Hct 35.6 L
Plt Count 390
Sodium 138
Potassium 3.4 L
Chloride 110 H
Carbon Dioxide 23
BUN 4 L
Creatinine 0.6 L
Glucose 100 H
Calcium 8.7
Vital Signs:
Vital Signs
Temp Pulse Resp BP Pulse Ox
98.2 F 62 16 155/74 95
12/05/24 07:47 12/05/24 08:28 12/05/24 07:47 12/05/24 08:28 12/05/24 10:42
I&O
12/04/24 12/05/24 12/06/24
06:59 06:59 06:59
Intake Total 1485 / 1485 960 / 960
Output Total 1999
Balance -515 / -515 -1110 / -1110
[2024-12-05 11:27] VITALS: BP 131/65
--- NOTE | 2024-12-05 12:08 | CM ---
CM following re: discharge planning.
Reviewed pt's chart, met with pt and pt's spouse at bedside.
According to MD, Vallejo catheter will be removed and if pt can void then pt will be discharged. Both pt and his spouse are aware, expressed their agreement.
IMM reviewed, placed on chart, pt has a copy.
PT and OT evaluations noted - home PT/OT recommended. Both pt and his spouse are aware, expressed their agreement and [facility] requested.
A referral to [facility] made.
Please fax discharge instructions to [facility] [phone]
D/C plan: return back to [facility] with [facility] and family support. Spouse to transport.
--- NOTE | 2024-12-05 12:26 | W.DCSUMMARY ---
Discharge Summary
Discharge Data
Date of Admission: 12/01/24
Date of Discharge: 12/05/24
Total time spent discharging patient (in min): 35
-
Pending Results: No
Hospital Course
Patient is 79 years old male with history of hyperlipidemia, hypothyroidism, BPH, colon polyps, skin cancer, lung nodules, came into the hospital chest pain and shortness of breath and found to have bilateral PE and DVT and probable pneumonia.
Pulmonary was consulted. Patient had some evidence of right ventricular dysfunction from PE but he remained hemodynamically stable and he was not a candidate for catheter directed thrombolytics. He did well with parenteral systemic anticoagulation
and he was able to be switched to oral Eliquis. Patient was also treated with IV antibiotics and we were able to switch to oral upon discharge. He will need follow-up with pulmonary with interval images of pulmonary nodules that appear to be
decreasing in size. Reevaluation of the need for PET scan as outpatient by pulmonary. He will also need follow-up echocardiogram as outpatient. He also will need probably referral to hematology oncology for his PE and also for lung nodules if it
turns out to be any malignancy. Patient was able to come off oxygen after treatment with anticoagulation and antibiotics. Patient also had some urinary retention and Vallejo catheter was placed. Vallejo catheter was removed and a void trial was done.
Patient doing symptomatically much better and he is eager to go home today. We asked patient case coordinator for home health therapy. Discussed with at bedside. He will be discharged in stable condition today.
Discharge duration: 35 minutes
Discharge Plan
-
Patient Disposition: Home with Home Care
Discharge Diagnosis/Procedures: Acute hypoxic respiratory failure. Bilateral pulmonary embolism. Pneumonia. Pulmonary nodules. Acute urinary retention.
Diet: Low Cholesterol
Activity: As tolerated
Blood Work: Please PCP to order CBC, BMP within 1 week
Referrals:
Ethan Amaral MD [Active, Pulmonary Medicine] - 12/23/24 1:30 pm
Rosey Eason DO [Family Provider, Internal Medicine] - in less than 1 week
Prescriptions:
New
amoxicillin-pot clavulanate 875-125 mg Tablet
1 tab PO Q12 5 Days Qty: 10 0RF
Eliquis DVT-PE Treat 30D Start 5 mg (74 tabs) tablets,dose pack
See Rx Instructions .ROUTE .COMPLEX Qty: 74 0RF
Rx Instructions:
orally per package directions
Continued
atorvastatin 20 mg tablet
20 mg PO HS
metoprolol succinate 50 mg tablet extended release 24 hr
50 mg PO DAILY
levothyroxine 50 mcg tablet
50 mcg PO DAILY
timolol maleate 0.5 % drops
1 drp ophthalmic (eye) DAILY
dutasteride 0.5 mg capsule
0.5 mg PO DAILY
Discharge Orders:
Discharge Patient (As Directed); Ordered 12/05/24
Ordered By: Francisco Denton
Discharge Date and Time
Print Language: CHINESE
[2024-12-05] MEDS: AUGMENTIN 875 MG/125 MG 1 TABLET PO (12:37)
== END 2024-12-05 14:13 | disposition home health service (06) | DRG 175 ==
LOC: 4 EAST ACU 02:55
PROVIDERS: Internal Medicine; ADMITTING PHYSICIAN Hospitalist; ATTENDING PHYSICIAN Hospitalist; CONSULT PHYSICIAN Internal Medicine Critical Care Medicine; EMERGENCY PHYSICIAN Student in an Organized Health Care Education/Training Program; FAMILY PHYSICIAN Internal Medicine
DX: I26.99 Other pulmonary embolism without acute cor pulmonale (principal); I21.A1 Myocardial infarction type 2; J18.9 Pneumonia, unspecified organism; J96.01 Acute respiratory failure with hypoxia; I82.411 Acute embolism and thrombosis of right femoral vein; I82.890 Acute embolism and thrombosis of other specified veins; I5A Non-ischemic myocardial injury (non-traumatic); I25.10 Atherosclerotic heart disease of native coronary artery without angina pectoris; E03.9 Hypothyroidism, unspecified; N40.1 Benign prostatic hyperplasia with lower urinary tract symptoms; H40.9 Unspecified glaucoma
CPT/HCPCS: 71046; 71275; 76604; 80048; 80053; 80061; 81003; 81015; 83605; 83880; 84145; 84484; 85025; 85027; 85730; 87040; 87449; 87502; 87811; 87899; 92526; 92610; 93005; 93306; 93970; 96365; 96375; 97163; 97167; 99291; G0103; Q9967

== ENCOUNTER 2024-12-21 20:44 | Inpatient (IN) | payer OTHER, SELFPAY ==
[2024-12-21] VITALS (11 sets, daily range): BP systolic 109–138; BP diastolic 57–70; BMI 21.0; BMI 20.6
[2024-12-21 15:22] LABS: Hematocrit 42.7 % (39.0-52.0); Hemoglobin 13.9 g/dL (13.0-18.0); Mean Corp Hgb Conc. 32.6 g/dL (33.0-37.0); Mean Corpuscular Volume 84.9 fL (80.0-94.0); Nucleated Red Blood Cells % 0 % (-); Platelet Count 345 10^3/uL (130-400); Red Cell Dist. Width 15.4 % (11.5-14.5)
[2024-12-21 15:33] LABS: ALT (SGPT) 17 U/L (0-50); AST (SGOT) 18 U/L (17-59); Albumin 4.1 g/dl (3.5-5.0); Alkaline Phosphatase 99 U/L (38-126); Blood Urea Nitrogen 13 mg/dl (9-20); Calcium 9.8 mg/dl (8.4-10.2); Carbon Dioxide 28 mmol/L (22-30); Chloride 102 mmol/L (98-107); Estimated Creatinine Clearance 82 ml/min; Glucose 113 mg/dl (70-99); Potassium 3.9 mmol/L (3.5-5.1); Sodium 136 mmol/L (135-145); Total Protein 7.2 g/dl (6.3-8.2); eGFR > 60.00
[2024-12-21 15:41] LABS: COVID-19 Antigen Negative (Negative)
[2024-12-21 17:31] LABS: Urine Character Clear (Clear)
[2024-12-21] MEDS: TYLENOL 650 MG PO ×2 (17:36→22:38)
[2024-12-21 17:44] LABS: Urine Squamous Cell 0-2 /LPF (Few); Urine White Cell 0-2 /HPF (0-5)
--- NOTE | 2024-12-21 18:22 | ED.GENMED ---
History of Present Illness
<Renee Snyder NP - Last Filed: 12/22/24 22:52>
General
Chief Complaint: Fever
Source: patient and spouse
Exam Limitations: none
Time Seen by Provider: 12/21/24 15:36
Nursing documentation reviewed up to this point in time: agreed with
History of Present Illness
History of Present Illness:
Patient to the emergency department with report of fever weakness and recent fall. According to his , patient woke overnight complaining of feeling cold. States this morning he got himself up and walked to the kitchen for something to drink.
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 He denies hitting his head. states that she had great difficulty getting him up. She states that he was too weak to stand. He eventually was able to pull himself up with
her assistance and walk to a chair. Once seated he was unable to get himself up after that. He denies headache dizziness blurred vision, shortness of breath. He was recently discharged from here after an inpatient stay for pulmonary embolisms.
He is currently on Eliquis. He reports feeling bilateral lower rib pain. This pain is similar to pain he felt during his admission for the PE. There is no shortness of breath pulse ox is 97% on room air. reports temp max of 102 at home. He
was given Tylenol for his fever. On arrival to ED he is awake and alert cooperative but weak.
Past History
<Renee Snyder GENERAL EDUCATION PROFESSOR - Last Filed: 12/22/24 22:52>
Past History
ED Past Medical History: HTN, Hypercholesterolemia, Hypothyroidism and Other (PE)
Review of Systems
<Renee Snyder NP - Last Filed: 12/22/24 22:52>
Review of Systems
Allergies reviewed?: Yes
All Other Systems: ROS reviewed and negative except as documented in HPI and ROS
Constitutional: Reports fever and fatigue
EENT: Reports no symptoms
Respiratory: Reports no symptoms
Cardiac: Reports no symptoms
ABD/GI: Reports no symptoms
: Reports no symptoms
Musculoskeletal: Reports no symptoms
Skin: Reports no symptoms
Neurological: Reports weakness
Psychiatric: Reports no symptoms
Phy Exam
<Renee Snyder NP - Last Filed: 12/22/24 22:52>
General Physical Exam
General Presentation: mild distress
General age: appears stated age
General Skin: warm and dry
General Habitus: elderly
General Mental: alert
General Hydration: dry mucous membranes
Cardiovascular Exam
Cardiovascular Exam: regular rate/rhythm and no edema
Pulmonary Exam
Pulmonary Exam: chest non tender, no cough and decreased breath sounds
Gastrointestinal Exam
Gastrointestinal Exam: normal bowel sounds, non tender, soft and no organomegaly
Neurological Exam
Neurological Exam: alert, oriented x3, CN II-XII intact, no motor deficits, no sensory deficits and speech normal
Musculoskeletal Exam
Musculoskeletal Exam: full ROM and neuro vasc intact
Skin Exam
Skin Exam: normal color, warm/dry and no rash
Psychiatric Exam
Psychiatric Exam: normal mood/affect
Course
<Renee Snyder GENERAL EDUCATION PROFESSOR - Last Filed: 12/22/24 22:52>
Orders/Labs/Results
Orders:
Orders
12/21/24 Breakfast
Regular
At Your Request: Limited Participation
Does patient need a safe tray?: No
Fluid Restriction: 1440 mL/day (48 oz)
12/21/24 15:03
COVID-19 Antigen Urgent
Source: Nasal Swab
Complete Blood Count/With Diff Urgent
Comprehensive Metabolic Panel Urgent
Influenza A+B Rapid Molecular Urgent
SHARON Source: Nasal Swab
Specimen Description:
12/21/24 15:36
CR Chest - 2 Views Urgent
Comment:
Reason For Exam: fever/cp
12/21/24 15:52
Lactate Level [Lactic Acid] Urgent
Blood Culture Q30M
SHARON Source: Blood/Venous
Specimen Description:
Blood Culture Q30M
SHARON Source: Blood/Venous
Specimen Description:
12/21/24 17:13
Osmolality, Random Urine Routine
Date Specimen was Collected: 12/21/24
Time Specimen was Collected: 17:12
Comment: ADD ON
Urinalysis Reflex To Culture Urgent
Date Specimen was Collected: 12/21/24
Time Specimen was Collected: 17:12
Urine Microscopic Reflex Cult Urgent
Urine Sodium Routine
Date Specimen was Collected: 12/21/24
Time Specimen was Collected: 17:12
Comment: ADD ON
12/21/24 17:31
Acetaminophen [Tylenol] 650 mg PO NOW STA
12/21/24 18:33
0.9% Sodium Chloride 1000 ml [Nss] 1,000 ml IV BOLUS
12/21/24 18:54
Ibuprofen [Motrin] 400 mg PO NOW STA
12/21/24 19:57
Admit/Transfer Patient As Directed
Co-Sign Provider:
Level of Care: Inpatient admission
Assign to:: Medical/Surgical
Physician / Group: [email or web address]
Diagnosis: feverf
Reason for Hospitalization: fever
Expected length of stay greater than two midnights?: Yes
ELOS- Estimated Length of Stay in days: 3
I certify the patient meets the requirements for IP care: Yes
PRN Pain Medication Management As Directed
May give lesser potent ordered pain med per pt: Yes
preference::
Protocol:: Medication orders for pain may be administered in a
manner that supports deferring to patient preference
when the pt is:
- Requesting an ordered lesser potent pain medication.
Least to most potent pain medications are defined
as: acetaminophen < NSAID < tramadol < opioids
(morphine, oxycodone, hydromorphone).
- Requesting a lesser dose of the same medication IF
ORDERED.
- Requesting a less intrusive route of administration
if both routes are prescribed by the provider (PO <
IV).
12/21/24 19:58
Code Status As Directed
Resuscitation Status: Full Code
12/21/24 20:07
Procalcitonin Stat
If negative, will antibiotics be d/c'd or not started: Yes
Does the patient have renal or hepatic impairment?: No
Any recent (w/in 48 hrs) physiologic stress (CPR, rhabdo): No
12/21/24 21:44
Acetaminophen [Tylenol] 650 mg PO Q4HPRN PRN
Apixaban [Eliquis] 5 mg PO BID
Bisacodyl [Dulcolax] 10 mg RECTAL [id number] PRN
Docusate W/Senna [Senokot-S] 1 tablet PO BIDPRN PRN
Polyethylene Glycol Powder [Miralax] 17 grams PO DAILYPRN PRN
Timolol Maleate 0.5% [Timoptic 0.5% Ophthalmic Solution] 1 drop BOTH EYES BID
12/21/24 21:44
Activity As Directed
Activity Level: As Tolerated
Vital Signs As Directed
Frequency: Per unit guidelines
12/21/24 22:00
Atorvastatin [Lipitor] 20 mg PO HS
CefTRIAXone [Rocephin] 1,000 mg IV Q24H
Doxycycline Hyclate [Vibramycin] 100 mg 0.9% Sodium Chloride 250 ml [Nss] 250 ml IV Q12H
12/22/24 06:00
Levothyroxine [Synthroid] 50 mcg PO DAILY @ 0600
12/22/24 06:24
Basic Metabolic Panel IN AM
Complete Blood Count/No Diff IN AM
12/22/24 18:00
Finasteride [Proscar] 5 mg PO QPM
Metoprolol Xl [Toprol Xl] 50 mg PO QPM
Abnormal Lab Results
12/21/24 12/21/24 12/21/24
15:03 17:13 20:07
WBC 15.8 H 10^3/uL
(4.8-10.8)
MCHC 32.6 L g/dL
(33.0-37.0)
RDW 15.4 H %
(11.5-14.5)
Abs Immat Gran (auto) 0.1 H 10^3/uL
(0-0.05)
Absolute Neuts (auto) 13.5 H 10^3/uL
(1.4-6.5)
Absolute Lymphs (auto) 0.8 L 10^3/uL
(1.2-3.4)
Absolute Monos (auto) 1.4 H 10^3/uL
(0.1-0.6)
Neutrophils % 85.2 H %
(42.2-75.2)
Lymphocytes % 5.0 L %
(20.5-51.1)
Glucose 113 H mg/dl
(70-99)
Total Bilirubin 1.5 H mg/dl
(0.2-1.3)
Procalcitonin 0.55 H ng/ml
(0.0-0.25)
Urine Ketones 1+ A
(Negative)
Ur Occult Blood Reflex 2+ A
(Negative)
Urine Urobilinogen 2+ A
(Neg - 1+)
Urine RBC 3-6 A /HPF
(0-2)
Urine Bacteria (Reflex) Few A
(Negative)
Urine Osmolality 980 H mOsm/kg
(300-900)
Urine Sodium 129 H mmol/L
(30-90)
Urine Albumin (Reflex) 2+ A
(Neg - Trace)
12/21/24 15:03
12/21/24 15:03
Vital Signs
Initial and Last Documented VS:
Initial Vital Signs
Pulse Resp Pulse Ox
79 21 98
12/21/24 14:57 12/21/24 14:57 12/21/24 14:57
Last Documented Vital Signs
Temp Pulse Resp BP Pulse Ox
99.0 F 75 18 120/64 97
12/23/24 15:37 12/23/24 17:47 12/23/24 15:37 12/23/24 17:47 12/23/24 15:37
<Morgan Perez MD - Last Filed: 12/23/24 19:07>
Orders/Labs/Results
Orders:
Orders
12/21/24 Breakfast
Regular
At Your Request: Limited Participation
Does patient need a safe tray?: No
Fluid Restriction: 1440 mL/day (48 oz)
12/21/24 15:03
COVID-19 Antigen Urgent
Source: Nasal Swab
Complete Blood Count/With Diff Urgent
Comprehensive Metabolic Panel Urgent
Influenza A+B Rapid Molecular Urgent
SHARON Source: Nasal Swab
Specimen Description:
12/21/24 15:36
CR Chest - 2 Views Urgent
Comment:
Reason For Exam: fever/cp
12/21/24 15:52
Lactate Level [Lactic Acid] Urgent
Blood Culture Q30M
SHARON Source: Blood/Venous
Specimen Description:
Blood Culture Q30M
SHARON Source: Blood/Venous
Specimen Description:
12/21/24 17:13
Osmolality, Random Urine Routine
Date Specimen was Collected: 12/21/24
Time Specimen was Collected: 17:12
Comment: ADD ON
Urinalysis Reflex To Culture Urgent
Date Specimen was Collected: 12/21/24
Time Specimen was Collected: 17:12
Urine Microscopic Reflex Cult Urgent
Urine Sodium Routine
Date Specimen was Collected: 12/21/24
Time Specimen was Collected: 17:12
Comment: ADD ON
12/21/24 17:31
Acetaminophen [Tylenol] 650 mg PO NOW STA
12/21/24 18:33
0.9% Sodium Chloride 1000 ml [Nss] 1,000 ml IV BOLUS
12/21/24 18:54
Ibuprofen [Motrin] 400 mg PO NOW STA
12/21/24 19:57
Admit/Transfer Patient As Directed
Co-Sign Provider:
Level of Care: Inpatient admission
Assign to:: Medical/Surgical
Physician / Group: [email or web address]
Diagnosis: feverf
Reason for Hospitalization: fever
Expected length of stay greater than two midnights?: Yes
ELOS- Estimated Length of Stay in days: 3
I certify the patient meets the requirements for IP care: Yes
PRN Pain Medication Management As Directed
May give lesser potent ordered pain med per pt: Yes
preference::
Protocol:: Medication orders for pain may be administered in a
manner that supports deferring to patient preference
when the pt is:
- Requesting an ordered lesser potent pain medication.
Least to most potent pain medications are defined
as: acetaminophen < NSAID < tramadol < opioids
(morphine, oxycodone, hydromorphone).
- Requesting a lesser dose of the same medication IF
ORDERED.
- Requesting a less intrusive route of administration
if both routes are prescribed by the provider (PO <
IV).
12/21/24 19:58
Code Status As Directed
Resuscitation Status: Full Code
12/21/24 20:07
Procalcitonin Stat
If negative, will antibiotics be d/c'd or not started: Yes
Does the patient have renal or hepatic impairment?: No
Any recent (w/in 48 hrs) physiologic stress (CPR, rhabdo): No
12/21/24 21:44
Acetaminophen [Tylenol] 650 mg PO Q4HPRN PRN
Apixaban [Eliquis] 5 mg PO BID
Bisacodyl [Dulcolax] 10 mg RECTAL [id number] PRN
Docusate W/Senna [Senokot-S] 1 tablet PO BIDPRN PRN
Polyethylene Glycol Powder [Miralax] 17 grams PO DAILYPRN PRN
Timolol Maleate 0.5% [Timoptic 0.5% Ophthalmic Solution] 1 drop BOTH EYES BID
12/21/24 21:44
Activity As Directed
Activity Level: As Tolerated
Vital Signs As Directed
Frequency: Per unit guidelines
12/21/24 22:00
Atorvastatin [Lipitor] 20 mg PO HS
CefTRIAXone [Rocephin] 1,000 mg IV Q24H
Doxycycline Hyclate [Vibramycin] 100 mg 0.9% Sodium Chloride 250 ml [Nss] 250 ml IV Q12H
12/22/24 06:00
Levothyroxine [Synthroid] 50 mcg PO DAILY @ 0600
12/22/24 06:24
Basic Metabolic Panel IN AM
Complete Blood Count/No Diff IN AM
12/22/24 18:00
Finasteride [Proscar] 5 mg PO QPM
Metoprolol Xl [Toprol Xl] 50 mg PO QPM
Abnormal Lab Results
12/21/24 12/21/24 12/21/24
15:03 17:13 20:07
WBC 15.8 H 10^3/uL
(4.8-10.8)
MCHC 32.6 L g/dL
(33.0-37.0)
RDW 15.4 H %
(11.5-14.5)
Abs Immat Gran (auto) 0.1 H 10^3/uL
(0-0.05)
Absolute Neuts (auto) 13.5 H 10^3/uL
(1.4-6.5)
Absolute Lymphs (auto) 0.8 L 10^3/uL
(1.2-3.4)
Absolute Monos (auto) 1.4 H 10^3/uL
(0.1-0.6)
Neutrophils % 85.2 H %
(42.2-75.2)
Lymphocytes % 5.0 L %
(20.5-51.1)
Glucose 113 H mg/dl
(70-99)
Total Bilirubin 1.5 H mg/dl
(0.2-1.3)
Procalcitonin 0.55 H ng/ml
(0.0-0.25)
Urine Ketones 1+ A
(Negative)
Ur Occult Blood Reflex 2+ A
(Negative)
Urine Urobilinogen 2+ A
(Neg - 1+)
Urine RBC 3-6 A /HPF
(0-2)
Urine Bacteria (Reflex) Few A
(Negative)
Urine Osmolality 980 H mOsm/kg
(300-900)
Urine Sodium 129 H mmol/L
(30-90)
Urine Albumin (Reflex) 2+ A
(Neg - Trace)
12/21/24 15:03
12/21/24 15:03
Vital Signs
Initial and Last Documented VS:
Initial Vital Signs
Pulse Resp Pulse Ox
79 21 98
12/21/24 14:57 12/21/24 14:57 12/21/24 14:57
Last Documented Vital Signs
Temp Pulse Resp BP Pulse Ox
99.0 F 75 18 120/64 97
12/23/24 15:37 12/23/24 17:47 12/23/24 15:37 12/23/24 17:47 12/23/24 15:37
<Renee Snyder NP - Last Filed: 12/22/24 22:52>
*Radiology
Radiology exam reviewed: radiology read reviewed
*Pulse Oximetry
SaO2: 97
Oxygen Mode of Delivery: Room air
Patient hypoxic: no
*Critical Care Note
Total Time (30-74mins, 75-104mins- exclusive of procedures): Not Applicable
<Renee Snyder NP - Last Filed: 12/22/24 22:52>
Update Note
Update Note:
Patient to the emergency department for evaluation of fever and weakness. According to his patient woke overnight complaining of feeling cold, this morning he had a temp max of 102. 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 He denies hitting his head. He was unable to get up off of the floor for some time. reports that he is extremely weak. Vital signs are stable temp in ED 100.0. Labs reviewed WBC of 15.8 with a lactic of 1.3. COVID and
influenza are both negative. Chest x-ray reviewed, NAD. Urinalysis negative for UTI. He was given IV fluids while in ED. He remains weak and unable to ambulate safely. Case discussed with Dr. Humphrey who also evaluated this patient. Patient will be
admitted to the hospitalist service for fever and weakness. patient and spouse are agreeable to this plan
ED Attending Note
<Renee Snyder NP - Last Filed: 12/22/24 22:52>
-
Portions of this chart may have been created with voice recognition software.� Occasional wrong word or��sound alike� substitutions may have occurred due to the inherent limitations of voice recognition software.
<Morgan Perez MD - Last Filed: 12/23/24 19:07>
ED Attending Note
Patient seen and examined by attending physician: Yes
ED Attending Note:
Patient diagnosed with bilateral PE 1 month ago, currently taking Eliquis, presents to ED secondary to sudden onset of fever, chills and generalized weakness, along with recurrent bilateral rib pain starting this morning. Due to weakness, patient
reports fall from sitting position, without any head injury. Patient denies any injury from the fall. In addition, patient reports continual intermittent cough, since being discharged in the hospital. Denies headache. Denies neck pain. Denies
abdominal pain. Denies vomiting or diarrhea. Denies sick contact. Denies recent travel.
Physical Exam
General: mild distress, not acutely ill. febrile. weak appearing
Head: nc/at. eomi
Neck: supple. normal range of motion.
Heart: s1/s2 regular rate and rhythm
Lungs: no acute respiratory distress. clear bilaterally
Abdomen: normal bowel sounds. not tender.
Neuro: alert and oriented x 3. no focal neurological deficits. normal speech
Skin: no rash
Psychiatric: well kept. interactive and cooperative
Extremities: no edema. no calf tenderness.
History and exam consistent with profound weakness, likely secondary to febrile illness, of unknown etiology at this time. Blood culture pending. Urine culture pending. Will hold off antibiotics at this time. Patient will be admitted for further
evaluation and treatment.
Discharge Plan
Departure
Patient Disposition: Admit
Date of Disposition: 12/21/24
Time of Disposition: 18:30
Presentation/result/management discussed w/ accepting MD/DO: Hospitalist
Patient with high blood pressure during this ER visit?: No
Condition: Fair
Covid-19: Not Applicable
Discharge Problem:
Fever, Weakness
Interventions
Interventions:
*Risk Screen - Suicide Last Done: 12/21/24 23:20
*General Assessment Last Done: 12/21/24 15:02
*Neglect/Abuse Screening Last Done: 12/21/24 15:02
*ED- Fall Risk Assessment Last Done: 12/21/24 15:02
*ED COVID-19 Vaccine History Last Done: 12/21/24 23:20
*ED Influenza Vaccine History Last Done: 12/21/24 15:02
*Nursing Disposition Last Done: 12/21/24 21:47
ED- Neurological Assessment Last Done: 12/21/24 15:24
ED-Skin Assessment Last Done: 12/21/24 15:24
Discharge Date and Time
Discharge Date/Time: 12/21/24 21:48
[2024-12-21] MEDS: NSS 1000 IV ×2 (18:40→23:15)
[2024-12-21] MEDS: MOTRIN 400 MG PO (18:57)
--- NOTE | 2024-12-21 19:38 | HPS.HSE ---
Family Physician
-
Family Physician: Rosey aEson
Chief Complaint
-
fever
History of Present Illness
79-year-old with past medical history for hypertension, hypercholesteremia, hypothyroidism, PE patient to the emergency department with report of fever weakness and recent fall. According to his , patient woke overnight complaining of feeling
cold. she gave him extra blanket and he fell asleep. States this morning he got himself up and walked to the kitchen for something to drink. 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 denied
hitting head on the floor. denied dizzy or syncope. walked him to the chair and she noticed he was weak. he was not able to get up from the chair. he had temp of 101 and 102 at home. Patient denied any cough, congestion. He has runny nose
which is usual at this time. Denied chest pain or short of breath. Patient denied abdominal pain, nausea, vomiting or diarrhea. Patient denied dysuria hematuria.as per , memory issues since the PE.
COVID, flu, UA negative, chest x-ray negative. Admitting for further management
Medical History
Past Medical History
Past Medical History: Reports Other
Additional Past Medical History:
BPH, hypothyroidism, hyperlipidemia, CA, colon polyps, skin cancer
Past Surgical History: Reports Other
Additional Past Surgical History:
Appendectomy, cataract surgery
Social History
Tobacco: Non-smoker
Alcohol: None
Drug: None
Personal:
Living: With Family
Family History
Family History: Not pertinent
Allergies / Home Medications
Allergies reflects when Allergies were last updated in [facility].
Home Medications with original date entered in [facility]
Allergy/Medication List:
Allergies
Allergy/AdvReac Type Severity Reaction Status Date / Time
No Known Allergies Allergy Unverified 11/30/24 23:03
Home Medications
atorvastatin 20 mg tablet 20 mg PO HS High Cholesterol 12/01/24
dutasteride 0.5 mg capsule 0.5 mg PO QPM Urinary Issue 12/01/24
levothyroxine 50 mcg tablet 50 mcg PO DAILY Thyroid 12/01/24
metoprolol succinate 50 mg tablet,extended release 24 hr 50 mg PO QPM Blood Pressure 12/01/24
timolol maleate 0.5 % eye drops 1 drp BOTH EYES BID Eye Condition 12/01/24
apixaban 5 mg tablet (Eliquis) 5 mg PO BID Blood Clot Prevention/Tx 12/21/24
therapeutic multivitamin 1 tab PO DAILY Supplement 12/21/24
Review of Systems
-
Constitutional: Reports Fever
EENT: Reports No Symptoms
Respiratory: Reports No Symptoms
Cardiac: Reports No Symptoms
Abdomen/GI: Reports No Symptoms
: Reports No Symptoms
Musculoskeletal: Reports No Symptoms
Skin: Reports No Symptoms
Neurological: Reports Weakness
Endocrine: Reports No Symptoms
Hematologic/Lymphatic: Reports No Symptoms
Psych: Reports No Symptoms
Physical Exam
Vital Signs
Vital Signs
Temp Pulse Resp BP Pulse Ox
101.1 F H 78 23 135/69 97
12/21/24 18:41 12/21/24 19:15 12/21/24 19:15 12/21/24 19:00 12/21/24 19:15
Physical Exam
General: Well Developed, Well Nourished and No Apparent Distress
HEENT: NormoCephalic, Moist mucous membranes and Atraumatic
Respiratory: Clear
Cardiac: S1/S2 and Regular Rhythm; No Murmur or Rub
GI: Soft, Non Tender, Non Distended and Normal Bowel Sounds; No Organomegaly
Rectal: Deferred by Provider
Musculoskeletal: No Clubbing, No Cyanosis and No Edema
Skin: No Rash
Neuro: AO x 3 and Nonfocal/grossly intact
Psych: Calm
Laboratory Results
-
12/21/24 15:03
12/21/24 15:03
Laboratory Results
Lactic Acid 1.3 mmol/L (0.7-2.0) 12/21/24 15:52
Total Bilirubin 1.5 mg/dl (0.2-1.3) H 12/21/24 15:03
AST 18 U/L (17-59) 12/21/24 15:03
ALT 17 U/L (0-50) 12/21/24 15:03
Alkaline Phosphatase 99 U/L (38-126) 12/21/24 15:03
Data Reviewed
-
Diagnostic Radiology: Report Reviewed by me
Lab Data: Labs Reviewed by me
Impression/Plan
-
# Fever and acute close likely viral
- WBCs 15.8
-UA negative
-Chest x-ray negative
- COVID-negative
- Obtain procalcitonin
- IV ceftriaxone and Doxy prophylactically
- Blood culture sent from ER
# Generalized weakness
- PT/OT consulted
# Bilateral pulmonary embolism
- Eliquis continued
# Hyperlipidemia
- Atorvastatin continued
#Hypothyroidism
- Levothyroxine continued
# Essential hypertension
- Metoprolol continued
#BPH
- Dutasteride continued
#Glaucoma
- Eyedrops continued
#History of# NSTEMI
# DVT prophylaxis
- Eliquis
# CODE STATUS
-full code
--- NOTE | 2024-12-21 19:46 | W.PN.UPDATE ---
Update Note
Progress Note Update
Patient seen in conjunction with nurse practitioner. I agree with the findings on history and physical. I concur with assessment and plan listed otherwise.
Briefly, this is a 79-year-old male who has a past medical history significant for hypothyroidism, hyperlipidemia, BPH, history of skin cancer and lung nodules who was recently admitted to the hospital for chest pain and shortness of breath and
found to have bilateral pulmonary embolism and DVT with probable pneumonia., Patient was stable and was treated with anticoagulation, was given antibiotics and ultimately improved. He also had a brief episode of urinary retention for which a
urinary catheter was placed but this was discontinued after successful voiding trial. He comes to the emergency department for fevers chills that started overnight. According to spouse patient was complaining of feeling cold throughout the night.
Actually got up in the morning and went to the kitchen to cloth picker he dropped that cube and patient fell. He did not hit his head. He had difficulty getting up. He also appears much weaker than baseline. He has been compliant with his Eliquis and
states that he still continues to have bilateral lower rib pain. He denies shortness of breath and his oxygen saturation
97% on room air. Spouse measured a Tmax of 102 at home. He is alert and oriented x 2. There was no cough. He denies any abdominal pain. He denies any nausea or vomiting. He has not been having any diarrhea. No new rash. No joint swelling.
Here in the emergency department he had a temp of 101.1. Blood pressure was stable at 135/60 with a pulse of 79 and he was satting 97% on room air. Chest x-ray showed no acute infiltrates. CBC notable for a white count of 15 but otherwise
unremarkable. Electrolyte BUN/creatinine were normal. UA was negative. COVID and flu test were negative. LFTs were negative.
Fever -unclear source. Patient with recent decline in memory, currently A&O x 2 with memory loss. Fever to 101, chills, leukocytosis. As stated usual sources are negative although cannot entirely rule out atypical pneumonia, viral infection Just
completed Augmentin for possible pneumonia at the end of November. No diarrhea at this time.
- Admit to [facility]
- Blood culture sent
- Legionella and pneumococcal urinary antigen
- Starting empiric ceftriaxone and doxycycline, will DC if Pro-Ron is negative
- monitor for diarrhea
- if procal negative, will get ID consult
PE/DVT
- continue eliquis
BPH
- continue dutasteride/equivalent
HTN - stable
- continue metoprolol
DVT PPX - on apixaban
Code status - Full Code
[2024-12-21 20:47] LABS: Procalcitonin 0.55 ng/ml (0.0-0.25)
[2024-12-21] MEDS: LIPITOR 20 MG PO (22:18)
[2024-12-21] MEDS: ELIQUIS 5 MG PO (22:18)
[2024-12-21] MEDS: STERILE WATER FOR INJECTION 10 ML IV (22:18)
[2024-12-21] MEDS: ROCEPHIN 1000 MG IV (22:18)
[2024-12-21] MEDS: VIBRAMYCIN 260 MG IV (22:19)
[2024-12-22] MEDS: TIMOPTIC 0.5% OPHTHALMIC SOLUTION BOTH EYES ×2 (01:07→10:35)
[2024-12-22] MEDS: SYNTHROID 50 MCG PO (05:12)
[2024-12-22 05:26] VITALS: BMI 20.5
[2024-12-22 07:35] VITALS: BP 106/54
[2024-12-22 07:37] LABS: Hematocrit 37.6 % (39.0-52.0); Hemoglobin 12.1 g/dL (13.0-18.0); Mean Corp Hgb Conc. 32.2 g/dL (33.0-37.0); Mean Corpuscular Volume 87.9 fL (80.0-94.0); Platelet Count 260 10^3/uL (130-400); Red Cell Dist. Width 15.6 % (11.5-14.5)
[2024-12-22 07:41] LABS: Blood Urea Nitrogen 12 mg/dl (9-20); Calcium 9.1 mg/dl (8.4-10.2); Carbon Dioxide 24 mmol/L (22-30); Chloride 103 mmol/L (98-107); Estimated Creatinine Clearance 80 ml/min; Glucose 92 mg/dl (70-99); Potassium 3.9 mmol/L (3.5-5.1); Sodium 133 mmol/L (135-145); eGFR > 60.00
[2024-12-22] MEDS: ELIQUIS 5 MG PO ×2 (08:47→21:26)
--- NOTE | 2024-12-22 08:52 | W.PN.HOSP.TC ---
Today's Communication/Plan
-
Hold further antibiotics
ID consult
Await cultures
PT/OT
Assessment / Plan
Assessment / Plan
Gen-AAOx3, NAD, frail
HEENT-NC, AT, anicteric, clear oral mm
Neck-supple
CV-reg, no M, +S1/S2
Lungs-clear B/L
Abd-soft, NT, ND
Ext-no edema
Musculoskeletal-no cyanosis, clubbing
Skin-warm and dry
Neuro-grossly non-focal
Psych-calm, cooperative
FUO -unclear etiology thus far. Cultures pending. Hold further antibiotics, consult ID.
COVID, influenza negative. Admission chest x-ray negative.
Differential diagnosis of rheumatologic versus malignancy versus adverse drug reaction versus other etiology.
Low suspicion for infectious etiology, despite rising WBC count. Elevated procalcitonin, 0.55 noted.
Patient's chief complaint is generalized weakness. Denies fevers or chills at home. Has had a chronic cough.
He denies headaches, visual changes, jaw claudication, joint pain, proximal muscle pain or weakness, night sweats. Denies history of malignancy.
Of note during his most recent hospitalization in November 2024 he was noted to have fevers measuring 101.5 �F. Very mild leukocytosis that resolved. Was discharged on empiric antibiotics for possible pneumonia.
Hyponatremia -133. Will check labs.
Recent pulmonary embolism -continue Eliquis.
Recent right lower extremity DVT -as above.
Pulmonary nodules -noted on recent CT chest. Measuring 5 and 6 mm. Recommend outpatient follow-up with pulmonary.
Hypothyroidism -continue levothyroxine. Check TSH.
Hyperlipidemia -atorvastatin.
BPH
Glaucoma
Full code
PT/OT
Anticipated Discharge: > 48 hours
Subjective/Interval History
-
Date of Service: December 22, 2024
Patient seen and examined. Complaining of bilateral rib pain with coughing. Denies fevers or chills.
Objective Data
-
Labs:
Laboratory Results
12/22/24
06:24
WBC 21.2 H
Hgb 12.1 L
Hct 37.6 L
Plt Count 260 D
Sodium 133 L
Potassium 3.9
Chloride 103
Carbon Dioxide 24
BUN 12
Creatinine 0.7
Glucose 92
Calcium 9.1
Vital Signs:
Vital Signs
Temp Pulse Resp BP Pulse Ox
97.7 F 53 18 106/54 100
12/22/24 07:35 12/22/24 07:35 12/22/24 07:35 12/22/24 07:35 12/22/24 07:35
I&O
12/21/24 12/22/24 12/23/24
06:59 06:59 06:59
Intake Total 240 / 240
Output Total 475 / 475
Balance -235 / -235
Review of Systems
-
History Source: Patient
All other systems: Reviewed and negative
[2024-12-22 09:55] VITALS: BP 112/58; BP 117/56; PULSE 57; O2SAT 100
[2024-12-22 11:31] LABS: TSH 0.06 uIU/ml (0.47-4.68)
--- NOTE | 2024-12-22 11:40 | CON.ID ---
Consultation
-
Date/Time Consultation Requested: 12/22/2024 0851
Date/Time Consultation Performed: 12/22/2024 1140
Requesting Provider: Dr. Mcrae
Performing Provider: Dr. Ramirez
Reason for Consultation: Fever
Chief Complaint / Past History
History of Present Illness
Samina Stephens is a 79-year-old man with a significant past medical history of BPH and lung nodules being evaluated at the request of Dr. Mcrae regards to fever. History is obtained from chart review, and along with patient interview.
Additional history was obtained from review of old records contained the hospital EMR system.
Patient recently was admitted to [facility] on 12/01/2024 with complaints of chest pain and shortness of breath. At that time he had noted PETER x 3 to 4 weeks which has been progressive. The patient stating he was evaluated by his PCP and
Pulmonary. An outpatient CT revealed evidence of a pleural-based pulmonary nodule, and the patient noted that he had lost approximately 50 pounds over the past 2 years.
During his hospital stay he was found to have bilateral PEs and DVTs and suspected pneumonia. He received a course of antibiotics and ultimately was discharged home on 12/05/2024.
Patient presents back to the ER on 12/21 secondary to fever, generalized weakness and a recent fall. According to ER records, the patient reportedly had a temperature of 102 degrees at home, and several temperatures to 101 degrees since admission.
White count at admission was noted to be elevated, and has increased today. Infectious Diseases is asked to comment upon further antibiotic management and infection workup.
At present, patient denies any shortness of breath. He denies any headache or neck discomfort. He denies any cough or sputum production he denies any chest pain or current shortness of breath. He denies any abdominal pain. He denies any nausea,
vomiting or diarrhea. He denies any dysuria or hematuria.
Past History
Additional Past Medical History:
BPH
HLD
Hypothyroidism
Colon polyps
Skin cancer
Lung nodules
CAD; Hx HI
Additional Past Surgical History:
Appendectomy
Bilateral cataract surgery
Allergy History:
No Known Allergies Allergy (Unverified 11/30/24 23:03)
Medications Reviewed: Yes
Current Antibiotics:
None
Ceftriaxone / doxy - D/C'ed
Social History
Tobacco: Non-Smoker
Alcohol: None
Drug: None
Personal:
Living: With Family
Employment: Retired
Family History
Family History: Not Pertinent
Review of Systems
Vital Signs
Temp Pulse Resp BP Pulse Ox
97.7 F 53 18 106/54 100
12/22/24 07:35 12/22/24 07:35 12/22/24 07:35 12/22/24 07:35 12/22/24 07:35
Physical Exam
Physical Exam
Constitutional: No Acute Distress, Comfortable and Non-toxic
Head: Normocephalic
Eyes: Pupils Equal, Pupils Round, No Conjunctival Hemorrhage and Sclera Anicteric
Oral: No Thrush and No Ulcers
Cardiovascular: Regular Rate and S1/S2; Negative S3/S4
Pulmonary: Clear; Negative Wheezes, Rales or Rhonchi
Gastrointestinal: Soft, Non Tender, Non Distended and Normal Bowel Sounds
Extremities: Negative Edema, Cyanosis or Erythema
Neurological: Awake and Alert
Psychological: Calm
Lab / Diagnostic Study Results
12/22/24 06:24
12/22/24 06:24
Abs Immat Gran (auto) 0.1 10^3/uL (0-0.05) H 12/21/24 15:03
Absolute Neuts (auto) 13.5 10^3/uL (1.4-6.5) H 12/21/24 15:03
Absolute Lymphs (auto) 0.8 10^3/uL (1.2-3.4) L 12/21/24 15:03
Absolute Monos (auto) 1.4 10^3/uL (0.1-0.6) H 12/21/24 15:03
Absolute Basos (auto) 0.1 10^3/uL (0-0.2) 12/21/24 15:03
Immature Gran % 0.4 % (0-0.5) 12/21/24 15:03
Neutrophils % 85.2 % (42.2-75.2) H 12/21/24 15:03
Lymphocytes % 5.0 % (20.5-51.1) L 12/21/24 15:03
Monocytes % 9.0 % (1.7-9.3) 12/21/24 15:03
Eosinophils % 0.1 % (0-6) 12/21/24 15:03
Basophils % 0.3 % (0-2) 12/21/24 15:03
Lactic Acid 1.3 mmol/L (0.7-2.0) 12/21/24 15:52
Procalcitonin 0.55 ng/ml (0.0-0.25) H 12/21/24 20:07
Ur Squamous Epith Cells 0-2 /LPF (Few) 12/21/24 17:13
Microbiology Results
Micro:
12/21/24 15:52 Blood Culture - Pending
Blood/Venous
12/21/24 15:52 Blood Culture - Pending
Blood/Venous
12/21/24 15:03 Influenza Types A & B (CHRISTOPH) - Final
Nasal Swab Negative for Influenza A & B, NAAT
Negative results must be combined with clinical observations
and patient history.
Nucleic Acid Amplification test (NAAT)performed on the
[employer] platform.
Imaging:
12/21/2024 CXR (2 view): no evidence of active cardiopulmonary disease. No noted infiltrates. Please see full dictation for additional detail. Film personally viewed.
Assessment / Plan
Fever
Leukocytosis; rising
Generalized weakness
Elevated procalcitonin
BPH
HLD
Hypothyroidism
Colon polyps
Skin cancer
Lung nodules
CAD; Hx HI
Recommendations:
Current source of fever is unclear.
DDx includes PE vs bacterial infection vs. viral infection vs. other (?rheumatologic ?malignancy)
Recheck blood cultures now. Although somewhat unlikely, will check blood parasite smear to rule out Babesia.
Rising white count is somewhat concerning, and I will restart empiric antibiotics. (Ceftriaxone)
Check ESR and CRP.
Trend white count, along with temperature curve.
Further recommendations as additional data is returned.
[2024-12-22] MEDS: NSS 1000 IV (13:48)
[2024-12-22] MEDS: ROCEPHIN 2000 MG IV (13:50)
[2024-12-22] MEDS: STERILE WATER FOR INJECTION 20 ML IV (13:50)
[2024-12-22 15:19] VITALS: BP 113/59; BP 130/63; PULSE 79; O2SAT 99
[2024-12-22 15:35] VITALS: BP 131/56
--- NOTE | 2024-12-22 15:50 | CON.NEURO4 ---
Consultation - Neurology 4
-
CONSULTING PHYSICIAN: Zach Gray MD
REFERRING PHYSICIAN: Clifford Mcrae MD
DICTATED BY: Zach Gray MD
DATE/TIME OF REQUEST: 12/22/2024
DATE/TIME OF CONSULTATION: 12/22/2024
Reason for Consultation: Fever and weakness
ASSESSMENT AND PLAN:
The patient is 79 years old male, with a past medical history of hypertension, hypercholesteremia, hypothyroidism and PE, who presented to the emergency department on 12/21/2024 ,with report a temperature of 102 at home, weakness and a recent fall.
On 12/21/2024 in the morning, he got himself up and walked to the kitchen for something to drink. He told her that he bent over to crab picker a dropped ice Cube and lost the balance and he fell. According to the patient's , the patient's memory
has been getting worse since he was discharged from the hospital the hospital on 12/05/2024.
The patient memory appears to be better than yesterday as per his . At baseline the patient and his live in an independent living facility. The patient remembers what he had for breakfast and lunch today. On neurologic examination, the
patient is alert and oriented x 3 and he does not appear to have any major memory issues. It is possible that the patient's memory issues could be related to metabolic causes. ID consult has been obtained and the patient is on Rocephin at this
time. The patient's WBC count today was 21.2. He also has a hyponatremia with the sodium level being 133 today which was 129 yesterday. The plan is to check ESR and CRP.
. Continue current medications.
. MRI of the brain with and without contrast.
History of Present Illness:
The patient is 79 years old male, with a past medical history of hypertension, hypercholesteremia, hypothyroidism and PE, who presented to the emergency department on 12/21/2024 ,with report a temperataure of 102 at home, weakness and a recent fall.
According to his , patient woke up overnight complaining of feeling cold. she gave him extra blanket and he fell asleep. On 12/21/2024 in the morning, he got himself up and walked to the kitchen for something to drink. He told her that he
bent over to crab picker a dropped ice Cube and lost the balance and he fell. He denied hitting head on the floor. Denied dizziness or syncope. walked him to the chair and she noticed he was weak. he was not able to get up from the chair. He had
temperature of 102 at home as per his . According to the patient's the patient has had issues with her memory since his admission in the hospital recently. According to the patient's , the patient's memory has been getting worse since
he was discharged from the hospital the hospital on 12/05/2024. The patient memory appears to be better than yesterday as per his . At baseline the patient and his live in an independent living facility. The patient remembers what he had
for breakfast and lunch today.
Past Medical History: Hypertension, hypercholesteremia, hypothyroidism and PE.
Review of Systems:
The patient denies headache, dizziness, chest pain, shortness of breath, fever, chills, nausea and vomiting.
Neurologic Examination:
The patient is alert and is oriented to self and person but is not oriented to place and thinks that he is not in a hospital and he thinks that he is some living facility.
The patient knows his age but he does not know the month and thinks that this is January. The patient knew what he had for breakfast and also for lunch.
The speech is clear
The cranial nerves II to XII are grossly intact.
The motor strength is grossly 5/5 bilaterally in the upper and lower extremities.
The sensations are grossly intact.
The cerebellar examination does not show limb ataxia.
Vital Signs and Labs
-
Vital Signs and Labs:
Vital Signs
Temp Pulse Resp BP Pulse Ox
36.5 C 53 18 106/54 100
12/22/24 07:35 12/22/24 07:35 12/22/24 07:35 12/22/24 07:35 12/22/24 07:35
Lab Results
12/22/24 06:24
12/22/24 06:24
Sodium 133 mmol/L (135-145) L 12/22/24 06:24
Potassium 3.9 mmol/L (3.5-5.1) 12/22/24 06:24
BUN 12 mg/dl (9-20) 12/22/24 06:24
Glucose 92 mg/dl (70-99) 12/22/24 06:24
Calcium 9.1 mg/dl (8.4-10.2) 12/22/24 06:24
Medications
-
Active Medications
Generic Name Dose Route Start Last Admin
Trade Name Freq PRN Reason Stop Dose Admin
Acetaminophen 650 mg 12/21/24 21:44 12/21/24 22:38
Acetaminophen 325 Mg Tablet PO 01/18/25 21:43 650 mg
Q4HPRN PRN Administration
mild pain/THOMPSON/temp> 100.4F
Apixaban 5 mg 12/21/24 21:44 12/22/24 08:47
Apixaban (Eliquis) 5 Mg Tablet PO 01/18/25 21:43 5 mg
BID MEGGAN Administration
Atorvastatin Calcium 20 mg 12/21/24 22:00 12/21/24 22:18
Atorvastatin (Lipitor) 20 Mg Tablet PO 01/18/25 21:59 20 mg
HS MEGGAN Administration
Bisacodyl 10 mg 12/21/24 21:44
Bisacodyl 10 Mg Rectal Suppository RECTAL 01/18/25 21:43
[id number] PRN
constipation
Ceftriaxone Sodium 2,000 mg 12/22/24 14:00 12/22/24 13:50
Ceftriaxone 2,000 Mg/20 Ml Vial IV 2,000 mg
Q24H MEGGAN Administration
Finasteride 5 mg 12/22/24 18:00
Finasteride 5 Mg Tablet PO 01/19/25 17:59
QPM MEGGAN
Sodium Chloride 1,000 mls @ 80 mls/hr 12/21/24 23:00 12/22/24 13:48
Nss IV 1,000 mls
.[id number] MEGGAN Administration
Levothyroxine Sodium 50 mcg 12/22/24 06:00 12/22/24 05:12
Levothyroxine 50 Mcg Tablet PO 01/19/25 05:59 50 mcg
DAILY @ 0600 MEGGAN Administration
Metoprolol Succinate 50 mg 12/22/24 18:00
Metoprolol 50 Mg Extended Release Tablet PO 01/19/25 17:59
QPM MEGGAN
Polyethylene Glycol 17 grams 12/21/24 21:44
Polyethylene Glycol Powder 17 Grams Packet PO 01/18/25 21:43
DAILYPRN PRN
constipation
Senna/Docusate Sodium 1 tablet 12/21/24 21:44
Docusate W/Senna (Graciela-Colace) Tablet PO 01/18/25 21:43
BIDPRN PRN
constipation
Sodium Chloride 0 flush 12/21/24 22:00
Sodium Chloride 0.9% (Flush) Syringe IV 01/18/25 21:59
PER PROTOCOL MEGGAN
Sterile Water 20 ml 12/22/24 14:00 12/22/24 13:50
Sterile Water For Injection 20 Ml Vial IV 01/19/25 13:59 20 ml
Q24H MEGGAN Administration
Timolol Maleate 1 drop 12/21/24 21:44 12/22/24 10:35
Timolol 0.5% (Ophthalmic Solution) Bottle BOTH EYES 01/18/25 21:43 Not Given
BID MEGGAN
Home Medications
�Medication �Instructions �Recorded
atorvastatin 20 mg tablet 20 mg PO HS High Cholesterol 12/01/24
dutasteride 0.5 mg capsule 0.5 mg PO QPM Urinary Issue 12/01/24
levothyroxine 50 mcg tablet 50 mcg PO DAILY Thyroid 12/01/24
metoprolol succinate 50 mg 50 mg PO QPM Blood Pressure 12/01/24
tablet,extended release 24 hr
timolol maleate 0.5 % eye drops 1 drp BOTH EYES BID Eye Condition 12/01/24
apixaban 5 mg tablet (Eliquis) 5 mg PO BID Blood Clot 12/21/24
Prevention/Tx
therapeutic multivitamin 1 tab PO DAILY Supplement 12/21/24
[2024-12-22] MEDS: PROSCAR 5 MG PO (17:45)
[2024-12-22] MEDS: TOPROL XL 50 MG PO (17:45)
[2024-12-22] MEDS: TIMOPTIC 0.5% OPHTHALMIC SOLUTION 1 DROP BOTH EYES (21:27)
[2024-12-22] MEDS: LIPITOR 20 MG PO (21:27)
[2024-12-22] MEDS: TYLENOL 650 MG PO (21:31)
[2024-12-22 23:42] VITALS: BP 118/54
[2024-12-23] MEDS: NSS 1000 IV (02:33)
[2024-12-23] MEDS: SYNTHROID 50 MCG PO (05:35)
[2024-12-23 07:35] VITALS: BP 120/57
[2024-12-23 07:48] LABS: Hematocrit 38.8 % (39.0-52.0); Hemoglobin 12.3 g/dL (13.0-18.0); Mean Corp Hgb Conc. 31.7 g/dL (33.0-37.0); Mean Corpuscular Volume 85.3 fL (80.0-94.0); Nucleated Red Blood Cells % 0 % (-); Platelet Count 264 10^3/uL (130-400); Red Cell Dist. Width 15.7 % (11.5-14.5)
[2024-12-23 07:49] LABS: ALT (SGPT) 12 U/L (0-50); AST (SGOT) 13 U/L (17-59); Albumin 2.8 g/dl (3.5-5.0); Alkaline Phosphatase 80 U/L (38-126); Blood Urea Nitrogen 8 mg/dl (9-20); Calcium 8.9 mg/dl (8.4-10.2); Carbon Dioxide 26 mmol/L (22-30); Chloride 104 mmol/L (98-107); Estimated Creatinine Clearance 93 ml/min; Glucose 95 mg/dl (70-99); Potassium 3.5 mmol/L (3.5-5.1); Sodium 135 mmol/L (135-145); Total Protein 5.3 g/dl (6.3-8.2); eGFR > 60.00
--- NOTE | 2024-12-23 08:31 | CM ---
IA completed. Independent with ADLs and IADLS. Lives with his in an apartment at [facility]- No hx of SNF, DME, or home O2. No insecurities identified. Confirmed PCP, Rx, insurance and drug coverage.
PCP: Rosey Eason
Rx: [facility] [place]
Pt on IV ABX and has elevated WBC, PT recommends skilled vs Home PT, OT rec skilled
Plan: TBD
[2024-12-23] MEDS: ELIQUIS 5 MG PO ×2 (09:21→20:31)
[2024-12-23] MEDS: TIMOPTIC 0.5% OPHTHALMIC SOLUTION 1 DROP BOTH EYES (09:22)
--- NOTE | 2024-12-23 09:43 | W.PN.HOSP.TC ---
Today's Communication/Plan
-
Await brain MRI
Assessment / Plan
Assessment / Plan
Gen-awake, alert, NAD, frail
HEENT-NC, AT, anicteric, clear oral mm
Neck-supple
CV-reg, no M, +S1/S2
Lungs-clear B/L
Abd-soft, NT, ND
Ext-no edema
Musculoskeletal-no cyanosis, clubbing
Skin-warm and dry
Neuro-grossly non-focal
Psych-calm, cooperative
FUO -unclear etiology thus far. Admission blood cultures negative so far. Repeat blood cultures pending. Currently on IV ceftriaxone per ID. Last fever was 12/21. WBC count now trending down.
COVID, influenza negative. Admission chest x-ray negative.
Differential diagnosis of rheumatologic versus malignancy versus adverse drug reaction versus other etiology.
Babesia smear negative.
Elevated procalcitonin, 0.55 noted. Elevated CRP noted.
Patient's chief complaint is generalized weakness. Denies fevers or chills at home. Has had a chronic cough.
He denies headaches, visual changes, jaw claudication, joint pain, proximal muscle pain or weakness, night sweats. Denies history of malignancy.
Of note during his most recent hospitalization in November 2024 he was noted to have fevers measuring 101.5 �F. Very mild leukocytosis that resolved. Was discharged on empiric antibiotics for possible pneumonia.
Hyponatremia - improved to 135. Urine studies consistent with SIADH. Fluid restriction ordered.
Ambulatory dysfunction -brain MRI pending. OT feels that he may have mild left-sided weakness, incoordination. Questionable left-sided neglect on my neurologic assessment but otherwise nonfocal. states he just got his eyedrops this morning
so that may be affecting his vision. Neurology following.
Recent pulmonary embolism -continue Eliquis.
Recent right lower extremity DVT -as above.
Pulmonary nodules -noted on recent CT chest. Measuring 5 and 6 mm. Recommend outpatient follow-up with pulmonary.
Hypothyroidism -continue levothyroxine. TSH 0.06, free T4 1.9. Would not make any changes in levothyroxine dose, recheck thyroid labs in 4 weeks as an outpatient.
Hyperlipidemia -atorvastatin.
BPH
Glaucoma
Full code
Anticipated Discharge: > 48 hours
Subjective/Interval History
-
Date of Service: December 23, 2024
Patient seen and examined. No new complaints.
Objective Data
-
Labs:
Laboratory Results
12/23/24
06:30
WBC 17.6 H
Hgb 12.3 L
Hct 38.8 L
Plt Count 264
Sodium 135
Potassium 3.5
Chloride 104
Carbon Dioxide 26
BUN 8 L
Creatinine 0.6 L
Glucose 95
Calcium 8.9
Total Bilirubin 1.2
AST 13 L
ALT 12
Alkaline Phosphatase 80
Vital Signs:
Vital Signs
Temp Pulse Resp BP Pulse Ox
98.1 F 69 16 120/57 96
12/23/24 07:35 12/23/24 07:35 12/23/24 07:35 12/23/24 07:35 12/23/24 07:35
I&O
12/22/24 12/23/24 12/24/24
06:59 06:59 06:59
Intake Total 240 / 240 960 / 960
Output Total 475 / 475 2210 / 2210
Balance -235 / -235 -1250 / -1250
Review of Systems
-
History Source: Patient
All other systems: Reviewed and negative
[2024-12-23 10:11] LABS: Magnesium 1.7 mg/dl (1.6-2.3)
[2024-12-23] MEDS: KCL 40 MEQ PO (11:48)
--- NOTE | 2024-12-23 12:31 | W.PN.NEURO.1 ---
Addendum entered and electronically signed by Zach Gray MD 12/24/24 01:28:
The vitamin B12 level is 248 which is in the low normal range. He would likely benefit from vitamin B12 supplementation.
Addendum entered and electronically signed by Zach Gray MD 12/23/24 21:33:
I saw and examined the patient today along with nurse practitioner Sadie Loera and I agree with her assessment and the management plan. Given below is my addendum.
The patient is 79 years old male, with a past medical history of hypertension, hypercholesteremia, hypothyroidism and PE, who presented to the emergency department on 12/21/2024 ,with report a temperature of 102 at home, weakness and a recent fall.
On 12/21/2024 in the morning, he got himself up and walked to the kitchen for something to drink. He told her that he bent over to chicken picker a dropped ice Cube and lost the balance and he fell. According to the patient's , the patient's memory
has been getting worse since he was discharged from the hospital the hospital on 12/05/2024.
The patient memory appears to be better than yesterday as per his however he does have episodes in which he has short-term memory deficits as per his . At baseline the patient and his live in an independent living facility. The
patient remembers what he had for breakfast and lunch today.
On neurologic examination, the patient is alert and oriented x 3 and speech is clear. He does not appear to have any gross focal motor deficit.
The patient has been afebrile for the past 24 hours. The ESR is 37. The CRP is 259.80 which is significantly elevated.
. Continue current medications.
. MRI of the brain with and without contrast did not show acute intracranial abnormality however severe atrophy was seen. Severe parenchymal volume loss including the bilateral mesial temporal lobes.
ASSESSMENT AND PLAN:
. The patient is issues with memory appear to be secondary to multiple factors.
. The patient will benefit from referral to a memory clinic as an outpatient, as he possibly has Alzheimer's disease. On MRI of the brain, the patient has severe parenchymal volume loss including the bilateral mesial temporal lobes which can
suggest a diagnosis of Alzheimer's disease.
. The vitamin B12 level is 248 which is barely in the lower therapeutic range, and the patient needs vitamin B12 supplementation.
. ID consult has been obtained and the patient is on Rocephin at this time. The leukocytosis has mildly improved today.
. The hyponatremia that the patient had earlier, has resolved and the sodium level today is 135.
Will sign off. Please call if any question.
Original Note:
Today's Communication / Plan
-
.
Neuro Assessment/Plan
Assessment
The patient is 79 years old male, with a past medical history of hypertension, hypercholesteremia, hypothyroidism and PE/DVTs (apixaban) in 11/2024, who presented to the emergency department on 12/21/2024 ,with report a temperature of 102 at home,
weakness and a recent fall.
-MRI brain 12/23/24: No acute intracranial abnormality noted. Severe atrophy with sequelae of moderate chronic small vessel ischemic disease.
I. Altered mental status; MRI brain is negative for stroke. Etiology of symptoms is likely toxic metabolic encephalopathy in the setting infection and likely underlying memory impairment.
II. Recent pulmonary embolism/DVTs 11/2024, on apixaban.
III. Severe atrophy and white matter disease on MRI brain imaging.
IV. Parkinsonism features, +masked facies, hypophonia, intermittent tremor.
Plan
-Continue home apixaban.
-Infectious workup per primary team.
-Checking blood work for metabolic abnormalities.
-Outpatient Neuropsychological testing.
-Consideration for PD testing as an outpatient.
-Follow-up with Neurology as an outpatient.
Subjective/Objective
Subjective Data
Date of Service: December 23, 2024
No acute events overnight, patient is slightly less confused today.
Objective Data
Vital Signs
Temp Pulse Resp BP Pulse Ox
98.8 F 69 16 120/57 96
12/23/24 11:30 12/23/24 07:35 12/23/24 07:35 12/23/24 07:35 12/23/24 07:35
Lab Results
12/23/24 06:30
12/23/24 06:30
Sodium 135 mmol/L (135-145) 12/23/24 06:30
Potassium 3.5 mmol/L (3.5-5.1) 12/23/24 06:30
BUN 8 mg/dl (9-20) L 12/23/24 06:30
Glucose 95 mg/dl (70-99) 12/23/24 06:30
Calcium 8.9 mg/dl (8.4-10.2) 12/23/24 06:30
Patient Allergies
No Known Allergies Allergy (Unverified 11/30/24 23:03)
Review of Systems
-
Neuro: Negative Dizzy, Headache, Weakness, Numbness, Ataxia, Tremors or Speech Problem
Physical Exam
-
General: No Apparent Distress
Eyes: No Ptosis and PERRLA
HEENT: Normocephalic and Atraumatic
Respiratory: No Dyspnea
Psych: Confused
Extended Neurological Exam
Mood & Affect: Mood Unremarkable; Negative Affect Unremarkable (flat affect)
Attention Span & Concentration: Awake, Alert and Interactive
Memory: Reduced
Tremor: Head Tremor Absent and Variable (intermittent left hand low amplitude semi rhythmic tremor at rest); Negative Hand Tremor Absent
Speech: Quantity Unremarkable, Rate of Production Unremarkable and Other (hypophonic)
Cranial Nerve VII: Facial Symmetry: Normal Facial Symmetry and Other (+masked facies)
Cranial Nerve VIII: Hearing: Unremarkable Hearing to Normal Conversational Volume
Muscle Strength, Overall: Full Throughout
Data Reviewed
-
MRI Head: Report Reviewed and Image Reviewed
Labs: Report Reviewed
Reviewed with: Physician, Patient and Family
Medications
-
Active Medications
Generic Name Dose Route Start Last Admin
Trade Name Freq PRN Reason Stop Dose Admin
Acetaminophen 650 mg 12/21/24 21:44 12/22/24 21:31
Acetaminophen 325 Mg Tablet PO 01/18/25 21:43 650 mg
Q4HPRN PRN Administration
mild pain/THOMPSON/temp> 100.4F
Apixaban 5 mg 12/21/24 21:44 12/23/24 09:21
Apixaban (Eliquis) 5 Mg Tablet PO 01/18/25 21:43 5 mg
BID MEGGAN Administration
Atorvastatin Calcium 20 mg 12/21/24 22:00 12/22/24 21:27
Atorvastatin (Lipitor) 20 Mg Tablet PO 01/18/25 21:59 20 mg
HS MEGGAN Administration
Bisacodyl 10 mg 12/21/24 21:44
Bisacodyl 10 Mg Rectal Suppository RECTAL 01/18/25 21:43
[id number] PRN
constipation
Ceftriaxone Sodium 2,000 mg 12/22/24 14:00 12/22/24 13:50
Ceftriaxone 2,000 Mg/20 Ml Vial IV 2,000 mg
Q24H MEGGAN Administration
Finasteride 5 mg 12/22/24 18:00 12/22/24 17:45
Finasteride 5 Mg Tablet PO 01/19/25 17:59 5 mg
QPM MEGGAN Administration
Levothyroxine Sodium 50 mcg 12/22/24 06:00 12/23/24 05:35
Levothyroxine 50 Mcg Tablet PO 01/19/25 05:59 50 mcg
DAILY @ 0600 MEGGAN Administration
Metoprolol Succinate 50 mg 12/22/24 18:00 12/22/24 17:45
Metoprolol 50 Mg Extended Release Tablet PO 01/19/25 17:59 50 mg
QPM MEGGAN Administration
Polyethylene Glycol 17 grams 12/21/24 21:44
Polyethylene Glycol Powder 17 Grams Packet PO 01/18/25 21:43
DAILYPRN PRN
constipation
Potassium Chloride 40 meq 12/23/24 10:00 12/23/24 11:48
Potassium Chloride 20 Meq Extended Release Tablet PO 01/20/25 09:59 40 meq
DAILY MEGGAN Administration
Senna/Docusate Sodium 1 tablet 12/21/24 21:44
Docusate W/Senna (Graciela-Colace) Tablet PO 01/18/25 21:43
BIDPRN PRN
constipation
Sodium Chloride 0 flush 12/21/24 22:00
Sodium Chloride 0.9% (Flush) Syringe IV 01/18/25 21:59
PER PROTOCOL MEGGAN
Sterile Water 20 ml 12/22/24 14:00 12/22/24 13:50
Sterile Water For Injection 20 Ml Vial IV 01/19/25 13:59 20 ml
Q24H MEGGAN Administration
Timolol Maleate 1 drop 12/21/24 21:44 12/23/24 09:22
Timolol 0.5% (Ophthalmic Solution) Bottle BOTH EYES 01/18/25 21:43 1 drop
BID MEGGAN Administration
Home Medications
�Medication �Instructions �Recorded
atorvastatin 20 mg tablet 20 mg PO HS High Cholesterol 12/01/24
dutasteride 0.5 mg capsule 0.5 mg PO QPM Urinary Issue 12/01/24
levothyroxine 50 mcg tablet 50 mcg PO DAILY Thyroid 12/01/24
metoprolol succinate 50 mg 50 mg PO QPM Blood Pressure 12/01/24
tablet,extended release 24 hr
timolol maleate 0.5 % eye drops 1 drp BOTH EYES BID Eye Condition 12/01/24
apixaban 5 mg tablet (Eliquis) 5 mg PO BID Blood Clot 12/21/24
Prevention/Tx
therapeutic multivitamin 1 tab PO DAILY Supplement 12/21/24
--- NOTE | 2024-12-23 13:42 | W.PN.ID1 ---
Date of Service
Date of Service: December 23, 2024
Today's Communication
Continue ceftriaxone for today.
Assessment / Plan
Fever
Leukocytosis
Generalized weakness
Elevated procalcitonin
BPH
HLD
Hypothyroidism
Colon polyps
Skin cancer
Lung nodules
CAD; Hx [place]
Recommendations:
Etiology of fever is unclear, although patient afebrile past 24 hours.
DDx includes PE vs bacterial infection vs. viral infection vs. other (?rheumatologic ?malignancy)
Repeat blood cultures are pending; no growth to date. Blood parasite smear negative.
Leukocytosis mildly improved today.
ESR only slightly elevated, but CRP markedly elevated.
Continue to monitor white count and temperature curve. Will continue with empiric ceftriaxone for today.
����������������������������������������������������������
Chief Complaint
-: Fever and Leukocytosis
Subjective / Review of Systems
Review of Systems: No Fever, No Chills, No Abdominal Pain and No Dysuria
Vital Signs / Physical Exam
Vital Signs
Vital Signs
Temp Pulse Resp BP Pulse Ox
98.8 F 69 16 120/57 96
12/23/24 11:30 12/23/24 07:35 12/23/24 07:35 12/23/24 07:35 12/23/24 07:35
Physical Exam
Constitutional: No Acute Distress, Comfortable, Chronically Ill and Non-toxic
Head: Normocephalic
Eyes: No Conjunctival Hemorrhage
Cardiovascular: S1/S2; Negative S3/S4
Pulmonary: Non Labored
Gastrointestinal: Non Tender, Non Distended and Normal Bowel Sounds
Neurological: Awake and Alert
Psychological: Confused
Objective Data
Lab Data
Lab Results
12/23/24 06:30
12/23/24 06:30
ESR 37 mm/hour (0-20) H 12/23/24 06:30
Estimated Creat Clear 93 ml/min 12/23/24 06:30
Lactic Acid 1.3 mmol/L (0.7-2.0) 12/21/24 15:52
Total Bilirubin 1.2 mg/dl (0.2-1.3) 12/23/24 06:30
AST 13 U/L (17-59) L 12/23/24 06:30
ALT 12 U/L (0-50) 12/23/24 06:30
Alkaline Phosphatase 80 U/L (38-126) 12/23/24 06:30
C-Reactive Protein 259.80 mg/L (0.0-10.00) H 12/23/24 06:30
Most recent labs reviewed.
Micro Results:
12/22/24 13:15 Blood Culture - Preliminary
Blood/Venous No Growth in 24 hours- Final report to follow
12/22/24 12:41 Blood Culture - Preliminary
Blood/Venous No Growth in 24 hours- Final report to follow
12/22/24 12:41 Blood Parasites Smear - Final
Blood/Venous
12/21/24 15:52 Blood Culture - Preliminary
Blood/Venous No Growth in 24 hours- Final report to follow
12/21/24 15:52 Blood Culture - Preliminary
Blood/Venous No Growth in 24 hours- Final report to follow
12/21/24 15:03 Influenza Types A & B (CHRISTOPH) - Final
Nasal Swab Negative for Influenza A & B, NAAT
Negative results must be combined with clinical observations
and patient history.
Nucleic Acid Amplification test (NAAT)performed on the
[employer] platform.
Imaging:
12/21/2024 CXR (2 view): no evidence of active cardiopulmonary disease. No noted infiltrates. Please see full dictation for additional detail. Film personally viewed.
--- NOTE | 2024-12-23 14:16 | PTCARENOTE ---
Pt has been able to void total of 275mL urine during this shift. Pt needs to stand to void. Bladder scan completed approx 1 hour after last void which showed 175mL in bladder.
[2024-12-23 14:22] LABS: Ferritin 154.0 ng/ml (17.9-464.0)
[2024-12-23 14:54] LABS: Folate 2.8 ng/ml (2.76-20); Vitamin B12 248 pg/ml (239-931)
[2024-12-23] MEDS: STERILE WATER FOR INJECTION 20 ML IV (15:05)
[2024-12-23] MEDS: ROCEPHIN 2000 MG IV (15:05)
[2024-12-23 15:37] VITALS: BP 124/60
[2024-12-23 15:58] VITALS: BP 137/63; PULSE 70; O2SAT 97
[2024-12-23] MEDS: TOPROL XL 50 MG PO (17:47)
[2024-12-23] MEDS: PROSCAR 5 MG PO (17:47)
--- NOTE | 2024-12-23 18:24 | PTCARENOTE ---
Pt denied need to void but agreed at stand at side of bed and attempt. He was able to void 50mL only. PVR bladder scan revealed 272mL. Pt continues to be somewhat confused stating he's in [facility] and the year is 2022. Pt follows
commands, BARRAGAN and is cooperative with care.
[2024-12-23 19:45] VITALS: BP 128/64
[2024-12-23] MEDS: TIMOPTIC 0.5% OPHTHALMIC SOLUTION BOTH EYES (20:31)
[2024-12-23] MEDS: LIPITOR 20 MG PO (20:31)
[2024-12-23] MEDS: SENOKOT-S 1 TABLET PO (20:33)
[2024-12-23 23:33] VITALS: BP 140/74
[2024-12-24] MEDS: SYNTHROID PO (05:59)
[2024-12-24] MEDS: SYNTHROID 50 MCG PO (06:40)
[2024-12-24 07:00] VITALS: BP 124/67
[2024-12-24 07:33] LABS: Hematocrit 34.9 % (39.0-52.0); Hemoglobin 11.3 g/dL (13.0-18.0); Mean Corp Hgb Conc. 32.4 g/dL (33.0-37.0); Mean Corpuscular Volume 85.3 fL (80.0-94.0); Nucleated Red Blood Cells % 0 % (-); Platelet Count 253 10^3/uL (130-400); Red Cell Dist. Width 15.6 % (11.5-14.5)
[2024-12-24 08:02] LABS: Blood Urea Nitrogen 8 mg/dl (9-20); Calcium 8.6 mg/dl (8.4-10.2); Carbon Dioxide 25 mmol/L (22-30); Chloride 103 mmol/L (98-107); Estimated Creatinine Clearance 80 ml/min; Glucose 95 mg/dl (70-99); Potassium 3.1 mmol/L (3.5-5.1); Sodium 133 mmol/L (135-145); eGFR > 60.00
[2024-12-24] MEDS: ELIQUIS 5 MG PO ×2 (09:27→20:31)
[2024-12-24] MEDS: TIMOPTIC 0.5% OPHTHALMIC SOLUTION 1 DROP BOTH EYES ×2 (09:27→20:31)
[2024-12-24] MEDS: KCL 40 MEQ PO (09:27)
[2024-12-24] MEDS: KCL 270 MEQ IV (10:28)
[2024-12-24] MEDS: FOLVITE 1 MG PO (10:28)
[2024-12-24] MEDS: VITAMIN B-12 1000 MCG PO (10:28)
[2024-12-24] MEDS: FLOMAX 0.4 MG PO (10:28)
[2024-12-24 11:48] LABS: Magnesium 1.7 mg/dl (1.6-2.3)
--- NOTE | 2024-12-24 12:18 | CM ---
Addendum entered by Dawn Rodriguez 12/24/24 13:51:
PT will supply the rolling walker
Addendum entered by Dawn Rodriguez 12/24/24 12:31:
IMM given and placed on chart.
Original Note:
Met with pt and at bedside. They do NOT want SNF, they are agreeable to HH at [facility] through their company. Referral placed.
Pt will need a walker for home. Requested one from PT. They need to check if they have a contract with the patient's insurance company. artur aware and [facility] liaison, tari York.
Plan: DC to [facility] with [facility] PT [facility]
--- NOTE | 2024-12-24 12:18 | W.PN.HOSP.TC ---
Today's Communication/Plan
-
Replete potassium
PT/OT
Assessment / Plan
Assessment / Plan
Gen-awake, alert, NAD, frail
HEENT-NC, AT, anicteric, clear oral mm
Neck-supple
CV-reg, no M, +S1/S2
Lungs-clear B/L
Abd-soft, NT, ND
Ext-no edema
Musculoskeletal-no cyanosis, clubbing
Skin-warm and dry
Neuro-grossly non-focal
Psych-calm, cooperative
FUO -unclear etiology thus far. Admission blood cultures negative so far. Repeat blood cultures negative so far. Currently on IV ceftriaxone per ID. Last fever was 12/21. WBC count trending down.
COVID, influenza negative. Admission chest x-ray negative.
Differential diagnosis of rheumatologic versus malignancy versus adverse drug reaction versus other etiology.
Babesia smear negative.
Elevated procalcitonin, 0.55 noted. Elevated CRP noted.
Patient's chief complaint is generalized weakness. Denies fevers or chills at home. Has had a chronic cough.
He denies headaches, visual changes, jaw claudication, joint pain, proximal muscle pain or weakness, night sweats. Denies history of malignancy.
Of note during his most recent hospitalization in November 2024 he was noted to have fevers measuring 101.5 �F. Very mild leukocytosis that resolved. Was discharged on empiric antibiotics for possible pneumonia.
Hyponatremia - improved to 135. Urine studies consistent with SIADH. Fluid restriction ordered.
Hypokalemia -3.1. Magnesium 1.7. Will replete orally/IV. Recheck labs in the morning.
Ambulatory dysfunction -likely due to aging, deconditioning. No evidence of stroke on brain MRI.
Continue PT/OT.
Urinary retention -unclear if acute versus chronic. Bladder scan showed 438 cc.
Possibly related to BPH. Tamsulosin initiated. Has been on dutasteride prior to admission.
Recommend outpatient urology follow-up. Hopefully we can avoid Vallejo catheter.
Recent pulmonary embolism -continue Eliquis.
Recent right lower extremity DVT -as above.
Pulmonary nodules -noted on recent CT chest. Measuring 5 and 6 mm. Recommend outpatient follow-up with pulmonary.
Hypothyroidism -continue levothyroxine. TSH 0.06, free T4 1.9. Would not make any changes in levothyroxine dose, recheck thyroid labs in 4 weeks as an outpatient.
Hyperlipidemia -atorvastatin.
BPH
Glaucoma
Full code
Dispo -anticipate discharge to SNF. Discussed with case management.
updated at the bedside.
Anticipated Discharge: 24 - 48 hours
Subjective/Interval History
-
Date of Service: December 24, 2024
Patient seen and examined. No complaints.
Objective Data
-
Labs:
Laboratory Results
12/24/24
07:19
WBC 15.0 H
Hgb 11.3 L
Hct 34.9 L
Plt Count 253
Sodium 133 L
Potassium 3.1 L
Chloride 103
Carbon Dioxide 25
BUN 8 L
Creatinine 0.7
Glucose 95
Calcium 8.6
Vital Signs:
Vital Signs
Temp Pulse Resp BP Pulse Ox
99.2 F 62 12 124/67 98
12/24/24 07:00 12/24/24 07:00 12/24/24 07:00 12/24/24 07:00 12/24/24 07:00
I&O
12/23/24 12/24/24 12/25/24
06:59 06:59 06:59
Intake Total 960 / 960 1690 / 1690 240 / 240
Output Total 2210 / 2210 900 / 900
Balance -1250 / -1250 790 / 790 240 / 240
Review of Systems
-
History Source: Patient
All other systems: Reviewed and negative
--- NOTE | 2024-12-24 12:37 | W.PN.ID1 ---
Date of Service
Date of Service: December 24, 2024
Today's Communication
Continue antibiotics. Transition to oral cefdinir and observe.
Assessment / Plan
Fever
Leukocytosis
Generalized weakness
Elevated procalcitonin
BPH
HLD
Hypothyroidism
Colon polyps
Skin cancer
Lung nodules
CAD; Hx [place]
Recommendations:
Etiology of fever is unclear. Patient afebrile past 48 hours.
DDx includes PE vs bacterial infection vs. viral infection vs. other (?rheumatologic ?malignancy)
Repeat blood cultures are pending; no growth to date. Blood parasite smear negative.
Continued improvement in leukocytosis noted today.
ESR only slightly elevated, but CRP markedly elevated, etiology unclear
Continue to monitor white count and temperature curve.
Transition to oral cefdinir and observe.
����������������������������������������������������������
Chief Complaint
-: Fever and Leukocytosis
Subjective / Review of Systems
Patient seen and examined. at bedside. reports that the patient looks markedly improved today and his cognition is likewise improving. Patient currently denies any fevers or chills. He denies any cough or congestion. He denies any
abdominal pain.
Vital Signs / Physical Exam
Vital Signs
Vital Signs
Temp Pulse Resp BP Pulse Ox
99.2 F 62 12 124/67 98
12/24/24 07:00 12/24/24 07:00 12/24/24 07:00 12/24/24 07:00 12/24/24 07:00
Physical Exam
Constitutional: No Acute Distress, Comfortable, Chronically Ill and Non-toxic
Head: Normocephalic
Eyes: No Conjunctival Hemorrhage
Cardiovascular: S1/S2; Negative S3/S4
Pulmonary: Non Labored
Gastrointestinal: Non Tender, Non Distended and Normal Bowel Sounds
Neurological: Awake and Alert
Psychological: Confused
Objective Data
Lab Data
Lab Results
12/24/24 07:19
12/24/24 07:19
ESR 37 mm/hour (0-20) H 12/23/24 06:30
Estimated Creat Clear 80 ml/min 12/24/24 07:19
Lactic Acid 1.3 mmol/L (0.7-2.0) 12/21/24 15:52
Total Bilirubin 1.2 mg/dl (0.2-1.3) 12/23/24 06:30
AST 13 U/L (17-59) L 12/23/24 06:30
ALT 12 U/L (0-50) 12/23/24 06:30
Alkaline Phosphatase 80 U/L (38-126) 12/23/24 06:30
C-Reactive Protein 259.80 mg/L (0.0-10.00) H 12/23/24 06:30
Most recent labs reviewed.
Micro Results:
12/21/24 15:52 Blood Culture - Preliminary
Blood/Venous No Growth in 48 hours- Final report to follow
12/21/24 15:52 Blood Culture - Preliminary
Blood/Venous No Growth in 48 hours- Final report to follow
12/22/24 13:15 Blood Culture - Preliminary
Blood/Venous No Growth in 24 hours- Final report to follow
12/22/24 12:41 Blood Culture - Preliminary
Blood/Venous No Growth in 24 hours- Final report to follow
12/22/24 12:41 Blood Parasites Smear - Final
Blood/Venous
12/21/24 15:03 Influenza Types A & B (CHRISTOPH) - Final
Nasal Swab Negative for Influenza A & B, NAAT
Negative results must be combined with clinical observations
and patient history.
Nucleic Acid Amplification test (NAAT)performed on the
[employer] platform.
Imaging:
12/21/2024 CXR (2 view): no evidence of active cardiopulmonary disease. No noted infiltrates. Please see full dictation for additional detail. Film personally viewed.
[2024-12-24 15:00] VITALS: BP 123/65
[2024-12-24 15:04] VITALS: BP 122/68; PULSE 74; O2SAT 100
[2024-12-24] MEDS: TOPROL XL 50 MG PO (17:33)
[2024-12-24] MEDS: PROSCAR 5 MG PO (17:33)
[2024-12-24] MEDS: LIPITOR 20 MG PO (20:31)
[2024-12-24] MEDS: OMNICEF 300 MG PO (20:31)
[2024-12-24] MEDS: KCL 20 MEQ PO (21:03)
[2024-12-24 23:39] VITALS: BP 126/67
[2024-12-25] MEDS: SYNTHROID 50 MCG PO (05:35)
[2024-12-25 06:29] LABS: Hematocrit 36.2 % (39.0-52.0); Hemoglobin 11.5 g/dL (13.0-18.0); Mean Corp Hgb Conc. 31.8 g/dL (33.0-37.0); Mean Corpuscular Volume 86.0 fL (80.0-94.0); Nucleated Red Blood Cells % 0 % (-); Platelet Count 281 10^3/uL (130-400); Red Cell Dist. Width 15.8 % (11.5-14.5)
[2024-12-25 07:00] VITALS: BP 134/68
[2024-12-25 07:10] LABS: Blood Urea Nitrogen 9 mg/dl (9-20); Calcium 8.8 mg/dl (8.4-10.2); Carbon Dioxide 22 mmol/L (22-30); Chloride 104 mmol/L (98-107); Estimated Creatinine Clearance 93 ml/min; Glucose 101 mg/dl (70-99); Potassium 3.9 mmol/L (3.5-5.1); Sodium 130 mmol/L (135-145); eGFR > 60.00
[2024-12-25] MEDS: ELIQUIS 5 MG PO (07:55)
[2024-12-25] MEDS: FLOMAX 0.4 MG PO (07:56)
[2024-12-25] MEDS: TIMOPTIC 0.5% OPHTHALMIC SOLUTION 1 DROP BOTH EYES (07:56)
[2024-12-25] MEDS: FOLVITE 1 MG PO (07:56)
[2024-12-25] MEDS: OMNICEF 300 MG PO (07:56)
[2024-12-25] MEDS: VITAMIN B-12 1000 MCG PO (07:59)
[2024-12-25] MEDS: KCL 40 MEQ PO (07:59)
--- NOTE | 2024-12-25 08:57 | CM ---
Chart reviewed and patient and spouse have declined skilled stating that they plan on returning [facility] independent living with visiting nurses, referral sent to [facility] visiting nurses and physical therapy have issued a walker to patient.
Plan; Back to [facility] apartments with visiting nurses.
[facility]
--- NOTE | 2024-12-25 09:14 | W.PN.HOSP.TC ---
Addendum entered and electronically signed by Clifford Mcrae DO 12/25/24 09:39:
Post void bladder scan 150 cc.
Discussed with at the bedside to follow-up with urology in [address] Terry.
Added tamsulosin.
Fluid restriction on discharge given hyponatremia, discussed with patient and . Labs to be checked in 1 week.
Original Note:
Today's Communication/Plan
-
Check bladder scan
Discharge
Assessment / Plan
Assessment / Plan
Gen-awake, alert, NAD, frail
HEENT-NC, AT, anicteric, clear oral mm
Neck-supple
CV-reg, no M, +S1/S2
Lungs-clear B/L
Abd-soft, NT, ND
Ext-no edema
Musculoskeletal-no cyanosis, clubbing
Skin-warm and dry
Neuro-grossly non-focal
Psych-calm, cooperative
FUO -unclear etiology thus far. Admission blood cultures negative so far. Repeat blood cultures negative so far. Now on oral antibiotics per ID. Last fever was 12/21. WBC count trending down.
COVID, influenza negative. Admission chest x-ray negative.
Differential diagnosis of rheumatologic versus malignancy versus adverse drug reaction versus other etiology.
Babesia smear negative.
Elevated procalcitonin, 0.55 noted. Elevated CRP noted.
Patient's chief complaint is generalized weakness. Denies fevers or chills at home. Has had a chronic cough.
He denies headaches, visual changes, jaw claudication, joint pain, proximal muscle pain or weakness, night sweats. Denies history of malignancy.
Of note during his most recent hospitalization in November 2024 he was noted to have fevers measuring 101.5 �F. Very mild leukocytosis that resolved. Was discharged on empiric antibiotics for possible pneumonia.
Hyponatremia -still low at 130. Urine studies consistent with SIADH. Continue fluid restriction. Check BMP in 1 week.
Hypokalemia - resolved.
Ambulatory dysfunction -likely due to aging, deconditioning. No evidence of stroke on brain MRI.
Continue PT/OT.
Urinary retention -unclear if acute versus chronic. Bladder scan showed 575 cc.
Possibly related to BPH. Tamsulosin initiated. Has been on dutasteride prior to admission.
Recommend outpatient urology follow-up. Hopefully we can avoid Vallejo catheter.
Recent pulmonary embolism -continue Eliquis.
Recent right lower extremity DVT -as above.
Pulmonary nodules -noted on recent CT chest. Measuring 5 and 6 mm. Recommend outpatient follow-up with pulmonary.
Hypothyroidism -continue levothyroxine. TSH 0.06, free T4 1.9. Would not make any changes in levothyroxine dose, recheck thyroid labs in 4 weeks as an outpatient.
Hyperlipidemia -atorvastatin.
BPH
Glaucoma
Full code
Dispo -stable for discharge back to [facility] with [facility]. Discussed with at the bedside, case management.
Check bladder scan prior to discharge. Hopefully we can avoid Vallejo catheter on discharge.
Will need follow-up with PCP, urology.
35 minutes spent in discharge process.
updated at the bedside.
Anticipated Discharge: Today
Subjective/Interval History
-
Date of Service: December 25, 2024
Patient seen and examined. No complaints.
Objective Data
-
Labs:
Laboratory Results
12/25/24
05:41
WBC 12.3 H
Hgb 11.5 L
Hct 36.2 L
Plt Count 281
Sodium 130 L
Potassium 3.9 D
Chloride 104
Carbon Dioxide 22
BUN 9
Creatinine 0.6 L
Glucose 101 H
Calcium 8.8
Vital Signs:
Vital Signs
Temp Pulse Resp BP Pulse Ox
98.7 F 61 16 134/68 95
12/25/24 07:00 12/25/24 07:00 12/25/24 07:00 12/25/24 07:00 12/25/24 07:00
I&O
12/24/24 12/25/24 12/26/24
06:59 06:59 06:59
Intake Total 1690 / 1690 480 / 480
Output Total 900 / 900 800 / 800
Balance 790 / 790 -320 / -320
Review of Systems
-
History Source: Patient
All other systems: Reviewed and negative
--- NOTE | 2024-12-25 09:37 | W.DS.TRANS ---
DC Summary - [employer]
-
Discharge Instructions:
Discharge Diagnosis/Procedures Fever of unknown origin, urinary retention,
hyponatremia, low folic acid level, low vitamin
B12 level
Diet Restrict fluids to 48 oz,Regular
Activity With assistance,As tolerated
Driving Restrictions No driving
Bathing Restrictions None
Blood Work CBC, BMP in 1 week with your primary care doctor
Other Services VN,PT
Instructions:
Stand-Alone Forms:
Changes to Home Medications: No
Discharge Medications:
DC Medications w/original date entered in [employer]
atorvastatin 20 mg tablet 20 mg PO HS High Cholesterol 12/01/24
dutasteride 0.5 mg capsule 0.5 mg PO QPM Urinary Issue 12/01/24
levothyroxine 50 mcg tablet 50 mcg PO DAILY Thyroid 12/01/24
metoprolol succinate 50 mg tablet,extended release 24 hr 50 mg PO QPM Blood Pressure 12/01/24
timolol maleate 0.5 % eye drops 1 drp BOTH EYES BID Eye Condition 12/01/24
apixaban 5 mg tablet (Eliquis) 5 mg PO BID Blood Clot Prevention/Tx 12/21/24
therapeutic multivitamin 1 tab PO DAILY Supplement 12/21/24
cefdinir 300 mg capsule 300 mg PO Q12 #5 caps 12/25/24
cyanocobalamin (vitamin B-12) 1,000 mcg capsule 1,000 mcg PO DAILY #30 caps 12/25/24
folic acid 1 mg tablet 1 mg PO DAILY #30 tabs 12/25/24
tamsulosin 0.4 mg capsule 0.4 mg PO DAILY #30 caps 12/25/24
Home Medication Changes
Pending Results: No
== END 2024-12-25 10:46 | disposition home health service (06) | DRG 643 ==
LOC: 4 EAST ACU 20:44
PROVIDERS: Registered Nurse; ADMITTING PHYSICIAN Internal Medicine; ATTENDING PHYSICIAN Hospitalist; CONSULT PHYSICIAN Psychiatry & Neurology Neurology; EMERGENCY PHYSICIAN Emergency Medicine; FAMILY PHYSICIAN Internal Medicine; OTHER PHYSICIAN Internal Medicine Infectious Disease
DX: E22.2 Syndrome of inappropriate secretion of antidiuretic hormone (principal); G92.8 Other toxic encephalopathy; R50.9 Fever, unspecified; E03.9 Hypothyroidism, unspecified; N40.1 Benign prostatic hyperplasia with lower urinary tract symptoms; R33.8 Other retention of urine; H40.9 Unspecified glaucoma; G20.C Parkinsonism, unspecified; R91.8 Other nonspecific abnormal finding of lung field; E78.00 Pure hypercholesterolemia, unspecified; I10 Essential (primary) hypertension; E87.6 Hypokalemia; D72.829 Elevated white blood cell count, unspecified; R26.2 Difficulty in walking, not elsewhere classified; I25.10 Atherosclerotic heart disease of native coronary artery without angina pectoris; W01.0XXA Fall on same level from slipping, tripping and stumbling without subsequent striking against object, initial encounter; Y93.89 Activity, other specified; Y92.000 Kitchen of unspecified non-institutional (private) residence as the place of occurrence of the external cause; Z86.711 Personal history of pulmonary embolism; I25.2 Old myocardial infarction; Z79.890 Hormone replacement therapy; Z79.01 Long term (current) use of anticoagulants; Z85.828 Personal history of other malignant neoplasm of skin; Z86.0100 Personal history of colon polyps, unspecified; Z86.718 Personal history of other venous thrombosis and embolism
CPT/HCPCS: 70553; 71046; 80048; 80053; 81003; 81015; 82607; 82728; 82746; 83605; 83735; 83930; 83935; 84145; 84300; 84439; 84443; 85025; 85027; 85652; 86140; 87015; 87040; 87207; 87502; 87811; 96360; 97116; 97163; 97167; 97530; 97535; 99285

== ENCOUNTER 2025-01-04 18:45 | Inpatient (IN) | payer OTHER, SELFPAY ==
[2025-01-04 14:14] VITALS: BP 121/66
--- NOTE | 2025-01-04 16:11 | ED.GENMED ---
History of Present Illness
<Dorie Jimenez MD - Last Filed: 01/04/25 16:22>
General
Chief Complaint: Abnormal Lab Value
Time Seen by Provider: 01/04/25 15:53
<Renee Snyder NP - Last Filed: 01/04/25 18:38>
General
Source: patient and spouse
History of Present Illness
History of Present Illness:
Patient to the emergency department for admission after abnormal PET scan. He had an outpatient PET scan completed on 1123 for follow-up of left lower lobe pulmonary nodule seen on CT 12/01/2024. PET scan result of a large cavitary thick-walled
left upper lobe lesion likely representing an aggressive infectious process. He was notified by his provider and sent to the emergency department. He follows outpatient with Dr. Amaral who is aware of the PET scan results. He recommends IV
antibiotics, sputum culture, admission and probable bronchoscopy. Patient was admitted here 12/21 to 12/25/2024 for fever of unknown origin. Etiology of fever was never identified however he improved after course of IV antibiotics. Patient states
he has felt well since his discharge on 12/25. He denies any fever or chills. He denies any chest pain or increased shortness of breath. He is accompanied to the ED by his . past medical history of pulmonary embolisms and is currently on
Eliquis.
Past History
<Renee Snyder NP - Last Filed: 01/04/25 18:38>
Past History
ED Past Medical History: HTN, Hypercholesterolemia, [place], Hypothyroidism and Other (PE, urinary retention, hyponatremia, hypokalemia)
ED Past Surgical History: Appendectomy and Other (A)
Review of Systems
<Renee Snyder NP - Last Filed: 01/04/25 18:38>
Review of Systems
Allergies reviewed?: Yes
All Other Systems: ROS reviewed and negative except as documented in HPI and ROS
Constitutional: Reports no symptoms
EENT: Reports no symptoms
Respiratory: Reports cough
Cardiac: Reports no symptoms
ABD/GI: Reports no symptoms
: Reports no symptoms
Musculoskeletal: Reports no symptoms
Skin: Reports no symptoms
Neurological: Reports no symptoms
Psychiatric: Reports no symptoms
Phy Exam
<Renee Snyder NP - Last Filed: 01/04/25 18:38>
General Physical Exam
General Presentation: no apparent distress
General age: appears stated age
General Skin: warm and dry
General Habitus: normal
General Mental: alert
Cardiovascular Exam
Cardiovascular Exam: regular rate/rhythm and no edema
Pulmonary Exam
Pulmonary Exam: no respiratory distress and decreased breath sounds
Gastrointestinal Exam
Gastrointestinal Exam: non tender and soft
Musculoskeletal Exam
Musculoskeletal Exam: full ROM and neuro vasc intact
Skin Exam
Skin Exam: normal color, warm/dry and no rash
Psychiatric Exam
Psychiatric Exam: normal mood/affect
Course
<Dorie Jimenez MD - Last Filed: 01/04/25 16:22>
Orders/Labs/Results
Orders:
Orders
01/04/25 16:05
Sputum Culture [Respiratory Culture/Gram Stain] Urgent
SHARON Source: Sputum
Specimen Description:
0.9% Sodium Chloride 1000 ml [Nss] 1,000 ml IV BOLUS
01/04/25 16:20
Complete Blood Count/With Diff Urgent
Comprehensive Metabolic Panel Urgent
Lactic Acid Urgent
Blood Culture Urgent
SHARON Source: Blood/Venous
Specimen Description:
Ampicillin/Sulbactam 3 G [Unasyn] 3 gm 0.9% Sodium Chloride 100 ml [Nss] 100 ml IV NOW
01/04/25 17:44
PULMONARY CONSULT Urgent
Consulting Provider: Anish Otero
Was physician already notified: Yes
01/04/25 18:19
Blood Culture Stat
SHARON Source: Blood/Venous
Specimen Description:
01/04/25 18:33
Admit/Transfer Patient As Directed
Co-Sign Provider:
Level of Care: Inpatient admission
Assign to:: Medical/Surgical
Physician / Group: jenna miller
Diagnosis: pulmonary abscess
Reason for Hospitalization: pulmonary abscess
Expected length of stay greater than two midnights?: Yes
ELOS- Estimated Length of Stay in days: 3
I certify the patient meets the requirements for IP care: Yes
PRN Pain Medication Management As Directed
May give lesser potent ordered pain med per pt: Yes
preference::
Protocol:: Medication orders for pain may be administered in a
manner that supports deferring to patient preference
when the pt is:
- Requesting an ordered lesser potent pain medication.
Least to most potent pain medications are defined
as: acetaminophen < NSAID < tramadol < opioids
(morphine, oxycodone, hydromorphone).
- Requesting a lesser dose of the same medication IF
ORDERED.
- Requesting a less intrusive route of administration
if both routes are prescribed by the provider (PO <
IV).
01/04/25 18:34
Code Status As Directed
Resuscitation Status: Full Code
Abnormal Lab Results
01/04/25
16:20
RBC 4.54 L 10^6/uL
(4.70-6.10)
Hgb 11.9 L g/dL
(13.0-18.0)
Hct 37.4 L %
(39.0-52.0)
MCH 26.2 L pg
(27.0-31.0)
MCHC 31.8 L g/dL
(33.0-37.0)
RDW 15.9 H %
(11.5-14.5)
Plt Count 628 H 10^3/uL
(130-400)
Absolute Lymphs (auto) 1.1 L 10^3/uL
(1.2-3.4)
Absolute Monos (auto) 0.7 H 10^3/uL
(0.1-0.6)
Lymphocytes % 15.2 L %
(20.5-51.1)
BUN 8 L mg/dl
(9-20)
Alkaline Phosphatase 159 H U/L
(38-126)
Albumin 3.3 L g/dl
(3.5-5.0)
01/04/25 16:20
01/04/25 16:20
Vital Signs
Initial and Last Documented VS:
Initial Vital Signs
Temp Pulse Resp BP Pulse Ox
97.7 F 53 16 121/66 97
01/04/25 14:14 01/04/25 14:14 01/04/25 14:14 01/04/25 14:14 01/04/25 14:14
Last Documented Vital Signs
Temp Pulse Resp BP Pulse Ox
97.7 F 53 21 109/72 98
01/04/25 14:14 01/04/25 17:45 01/04/25 17:45 01/04/25 17:00 01/04/25 17:45
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
Orders/Labs/Results
Orders:
Orders
01/04/25 16:05
Sputum Culture [Respiratory Culture/Gram Stain] Urgent
SHARON Source: Sputum
Specimen Description:
0.9% Sodium Chloride 1000 ml [Nss] 1,000 ml IV BOLUS
01/04/25 16:20
Complete Blood Count/With Diff Urgent
Comprehensive Metabolic Panel Urgent
Lactic Acid Urgent
Blood Culture Urgent
SHARON Source: Blood/Venous
Specimen Description:
Ampicillin/Sulbactam 3 G [Unasyn] 3 gm 0.9% Sodium Chloride 100 ml [Nss] 100 ml IV NOW
01/04/25 17:44
PULMONARY CONSULT Urgent
Consulting Provider: Anish Otero
Was physician already notified: Yes
01/04/25 18:19
Blood Culture Stat
SHARON Source: Blood/Venous
Specimen Description:
01/04/25 18:33
Admit/Transfer Patient As Directed
Co-Sign Provider:
Level of Care: Inpatient admission
Assign to:: Medical/Surgical
Physician / Group: jenna miller
Diagnosis: pulmonary abscess
Reason for Hospitalization: pulmonary abscess
Expected length of stay greater than two midnights?: Yes
ELOS- Estimated Length of Stay in days: 3
I certify the patient meets the requirements for IP care: Yes
PRN Pain Medication Management As Directed
May give lesser potent ordered pain med per pt: Yes
preference::
Protocol:: Medication orders for pain may be administered in a
manner that supports deferring to patient preference
when the pt is:
- Requesting an ordered lesser potent pain medication.
Least to most potent pain medications are defined
as: acetaminophen < NSAID < tramadol < opioids
(morphine, oxycodone, hydromorphone).
- Requesting a lesser dose of the same medication IF
ORDERED.
- Requesting a less intrusive route of administration
if both routes are prescribed by the provider (PO <
IV).
01/04/25 18:34
Code Status As Directed
Resuscitation Status: Full Code
Abnormal Lab Results
01/04/25
16:20
RBC 4.54 L 10^6/uL
(4.70-6.10)
Hgb 11.9 L g/dL
(13.0-18.0)
Hct 37.4 L %
(39.0-52.0)
MCH 26.2 L pg
(27.0-31.0)
MCHC 31.8 L g/dL
(33.0-37.0)
RDW 15.9 H %
(11.5-14.5)
Plt Count 628 H 10^3/uL
(130-400)
Absolute Lymphs (auto) 1.1 L 10^3/uL
(1.2-3.4)
Absolute Monos (auto) 0.7 H 10^3/uL
(0.1-0.6)
Lymphocytes % 15.2 L %
(20.5-51.1)
BUN 8 L mg/dl
(9-20)
Alkaline Phosphatase 159 H U/L
(38-126)
Albumin 3.3 L g/dl
(3.5-5.0)
01/04/25 16:20
01/04/25 16:20
Vital Signs
Initial and Last Documented VS:
Initial Vital Signs
Temp Pulse Resp BP Pulse Ox
97.7 F 53 16 121/66 97
01/04/25 14:14 01/04/25 14:14 01/04/25 14:14 01/04/25 14:14 01/04/25 14:14
Last Documented Vital Signs
Temp Pulse Resp BP Pulse Ox
97.7 F 53 21 109/72 98
01/04/25 14:14 01/04/25 17:45 01/04/25 17:45 01/04/25 17:00 01/04/25 17:45
<Renee Snyder NP - Last Filed: 01/04/25 18:38>
*Radiology
Radiology exam reviewed: radiology read reviewed
*Pulse Oximetry
SaO2: 97
Oxygen Mode of Delivery: Room air
Patient hypoxic: no
*Critical Care Note
Total Time (30-74mins, 75-104mins- exclusive of procedures): Not Applicable
<Renee Snyder NP - Last Filed: 01/04/25 18:38>
Update Note
Update Note:
Patient sent to the emergency department after abnormal finding on PET scan. Suspected abscess was noted to left upper lobe. Sent to the ED by pulmonology for admission, IV antibiotics. He denies any fever or chills. He denies any shortness of
breath or chest pain. Vital signs are stable he remains afebrile. Pulse ox is 97% on room air. Labs reviewed. No concerning findings on CBC or CMP. Blood cultures were obtained, results pending lactic is normal at 1.1. Patient will be admitted
to the service with pulmonary consult. IV Unasyn ordered.
ED Attending Note
<Dorie Jimenez MD - Last Filed: 01/04/25 16:22>
ED Attending Note
Patient seen and examined by attending physician: Yes
I performed the substantive portion of visit, reviewed & personally made and approve the management plan that is documented in note by myself or BRISEIDA.: Yes
ED Attending Note:
I have seen and evaluated the patient with a puub-on-[facility] encounter. I have spoken to the [BRISEIDA] and involved in the medical history, the physical exam, medical decision making.
Evaluation and management service: agree unless noted differently below.
Results interpretation: agree unless noted differently below.
79-year-old man presenting to the emergency department with a lung infection. Per Dr. Amaral from pulmonology patient was recently discharged for fever of unclear etiology. He had a PET scan done yesterday which showed a left upper lung abscess.
Patient states that he otherwise feels well. He denies any fevers chills. No chest pain. No shortness of breath. Occasional hemoptysis though he is on Eliquis for recent PE during my evaluation patient is resting comfortably. His lungs are
clear to auscultation. Abdomen soft nondistended nontender. Discussed the case with pulmonology who recommended IV antibiotics sputum sample and admission. He might need bronchoscopy/BAL
<Renee Snyder NP - Last Filed: 01/04/25 18:38>
-
Portions of this chart may have been created with voice recognition software.� Occasional wrong word or��sound alike� substitutions may have occurred due to the inherent limitations of voice recognition software.
Discharge Plan
Departure
Patient Disposition: Admit
Date of Disposition: 01/04/25
Time of Disposition: 17:42
Presentation/result/management discussed w/ accepting MD/DO: Hospitalist
Patient with high blood pressure during this ER visit?: No
Condition: Fair
Covid-19: Not Applicable
Discharge Problem:
Abscess of lung
Prescriptions:
No Action
atorvastatin 20 mg tablet
20 mg PO HS
metoprolol succinate 50 mg tablet extended release 24 hr
25 mg PO QPM
levothyroxine 50 mcg tablet
50 mcg PO DAILY
timolol maleate 0.5 % drops
1 drp BOTH EYES BID
dutasteride 0.5 mg capsule
0.5 mg PO QPM
therapeutic multivitamin Tablet
1 tab PO DAILY
Eliquis 5 mg Tablet
5 mg PO BID
tamsulosin 0.4 mg Capsule
0.4 mg PO DAILY Qty: 30 0RF
folic acid 1 mg Tablet
1 mg PO DAILY Qty: 30 0RF
cyanocobalamin (vitamin B-12) 1,000 mcg capsule
1,000 mcg PO DAILY Qty: 30 0RF
Interventions
Interventions:
*Risk Screen - Suicide Last Done: 01/04/25 14:14
*General Assessment Last Done: 01/04/25 14:14
*Neglect/Abuse Screening Last Done: 01/04/25 14:18
*ED- Fall Risk Assessment Last Done: 01/04/25 14:18
*ED COVID-19 Vaccine History Last Done: 01/04/25 14:18
*ED Influenza Vaccine History Last Done: 01/04/25 14:18
Discharge Date and Time
Print Language: BURUNDIAN
[2025-01-04] MEDS: NSS 1000 IV (16:25)
[2025-01-04 16:46] LABS: Hematocrit 37.4 % (39.0-52.0); Hemoglobin 11.9 g/dL (13.0-18.0); Mean Corp Hgb Conc. 31.8 g/dL (33.0-37.0); Mean Corpuscular Volume 82.4 fL (80.0-94.0); Nucleated Red Blood Cells % 0 % (-); Platelet Count 628 10^3/uL (130-400); Red Cell Dist. Width 15.9 % (11.5-14.5)
[2025-01-04 16:50] LABS: ALT (SGPT) 45 U/L (0-50); AST (SGOT) 23 U/L (17-59); Albumin 3.3 g/dl (3.5-5.0); Alkaline Phosphatase 159 U/L (38-126); Blood Urea Nitrogen 8 mg/dl (9-20); Calcium 9.3 mg/dl (8.4-10.2); Carbon Dioxide 30 mmol/L (22-30); Chloride 101 mmol/L (98-107); Glucose 96 mg/dl (70-99); Potassium 4.0 mmol/L (3.5-5.1); Sodium 135 mmol/L (135-145); Total Protein 6.6 g/dl (6.3-8.2); eGFR > 60.00
[2025-01-04 17:00] VITALS: BP 109/72
--- NOTE | 2025-01-04 18:14 | HPS.HSE ---
Family Physician
-
Family Physician: Rosey Eason
Chief Complaint
-
cough
History of Present Illness
79 year old with PMH for PE, HLD, BPH, HTN,hypothyroidism presented to us with abnormal PET scan. He had an outpatient PET scan completed on 1123 for follow-up of left lower lobe pulmonary nodule seen on CT 12/01/2024. PET scan result of a large
cavitary thick-walled left upper lobe lesion likely representing an aggressive infectious process. He was notified by his provider and sent to the emergency department. He follows outpatient with Dr. Amaral who is aware of the PET scan results.
patient has chronic cough with clear sputum. the cough is worse at night. denied sob, fever, chills, congestion. denied THOMPSON, dizzy or syncope.denied abdominal pain,n,v,d. denied dysuria or hematuria. he has lost 20lbs in 18 months.
Patient was admitted here 12/21 to 12/25/2024 for fever of unknown origin. Etiology of fever was never identified however he improved after course of IV antibiotics.
Medical History
Past Medical History
Past Medical History: Reports Other
Additional Past Medical History:
BPH, hypothyroidism, hyperlipidemia, [place], colon polyps, skin cancer
Past Surgical History: Reports Other
Additional Past Surgical History:
Appendectomy, bilateral cataract surgery
Social History
Tobacco: Former Smoker
Alcohol: Occasional
Drug: None
Personal:
Living: With Family
Family History
Family History: Not pertinent
Allergies / Home Medications
Allergies reflects when Allergies were last updated in [email or web address].
Home Medications with original date entered in [email or web address]
Allergy/Medication List:
Allergies
Allergy/AdvReac Type Severity Reaction Status Date / Time
No Known Allergies Allergy Verified 01/04/25 14:18
Home Medications
atorvastatin 20 mg tablet 20 mg PO HS High Cholesterol 12/01/24
dutasteride 0.5 mg capsule 0.5 mg PO QPM Urinary Issue 12/01/24
levothyroxine 50 mcg tablet 50 mcg PO DAILY Thyroid 12/01/24
metoprolol succinate 50 mg tablet,extended release 24 hr 50 mg PO QPM Blood Pressure 12/01/24
timolol maleate 0.5 % eye drops 1 drp BOTH EYES BID Eye Condition 12/01/24
apixaban 5 mg tablet (Eliquis) 5 mg PO BID Blood Clot Prevention/Tx 12/21/24
therapeutic multivitamin 1 tab PO DAILY Supplement 12/21/24
cefdinir 300 mg capsule 300 mg PO Q12 #5 caps 12/25/24
cyanocobalamin (vitamin B-12) 1,000 mcg capsule 1,000 mcg PO DAILY #30 caps 12/25/24
folic acid 1 mg tablet 1 mg PO DAILY #30 tabs 12/25/24
tamsulosin 0.4 mg capsule 0.4 mg PO DAILY #30 caps 12/25/24
Review of Systems
-
Constitutional: Reports No Symptoms
EENT: Reports No Symptoms
Respiratory: Reports Cough
Cardiac: Reports No Symptoms
Abdomen/GI: Reports No Symptoms
: Reports No Symptoms
Musculoskeletal: Reports No Symptoms
Skin: Reports No Symptoms
Neurological: Reports No Symptoms
Endocrine: Reports No Symptoms
Hematologic/Lymphatic: Reports No Symptoms
Psych: Reports No Symptoms
Physical Exam
Vital Signs
Vital Signs
Temp Pulse Resp BP Pulse Ox
97.7 F 53 21 109/72 98
01/04/25 14:14 01/04/25 17:45 01/04/25 17:45 01/04/25 17:00 01/04/25 17:45
Physical Exam
General: Well Developed, Well Nourished and No Apparent Distress
HEENT: NormoCephalic, Moist mucous membranes and Atraumatic
Respiratory: Clear
Cardiac: S1/S2 and Regular Rhythm; No Murmur or Rub
GI: Soft, Non Tender, Non Distended and Normal Bowel Sounds; No Organomegaly
Rectal: Deferred by Provider
Musculoskeletal: No Clubbing, No Cyanosis and No Edema
Skin: No Rash
Neuro: AO x 3 and Nonfocal/grossly intact
Psych: Calm
Laboratory Results
-
01/04/25 16:20
01/04/25 16:20
Laboratory Results
Lactic Acid 1.1 mmol/L (0.7-2.0) 01/04/25 16:20
Total Bilirubin 0.4 mg/dl (0.2-1.3) 01/04/25 16:20
AST 23 U/L (17-59) 01/04/25 16:20
ALT 45 U/L (0-50) 01/04/25 16:20
Alkaline Phosphatase 159 U/L (38-126) H 01/04/25 16:20
Data Reviewed
-
Diagnostic Radiology: Report Reviewed by me
Lab Data: Labs Reviewed by me
Impression/Plan
-
# Pulmonary abscess
- IV Unasyn
- Blood and sputum culture sent from ER
- PET scan with impression of a large cavitary thick-walled left upper lobe lesion has developed. The posterior margin abuts the major fissure, and appears to extend through the fissure with irregular soft tissue opacity infiltrating the superior
segment of the left lower lobe. Given the rapid development of this finding, this likely represents an aggressive infectious process as opposed to neoplasm.Other smaller scattered pleural based parenchymal opacities are noted with mild FDG
activity, as described, also felt to be infectious or inflammatory in nature.8mm nodule in the lingula contiguous with the minor fissure with relatively mild FDG accumulation and only slightly increased on delayed imaging. A small neoplasm cannot be
entirely excluded.Mi lymph node activity in the left hilum and adjacent to the left mainstem bronchus, both with less FDG activity on delayed imaging, more suggestive of reactive lymph nodes as opposed to metastases.
- Pulmonary consulted
-ID consulted.
- Will keep patient n.p.o. for possible bronch tomorrow morning
# Anemia of chronic disease
- Hemoglobin stable at 11.9, no active bleeding
- Continue to monitor
#Recent pulmonary embolism
# Right lower extremity DVT
-Hold Eliquis
Hypothyroidism -continue levothyroxine.
#Hyperlipidemia -atorvastatin.
#BPH
-Dutasteride, Flomax continued
#Essential hypertension
- Metoprolol continued
#Glaucoma
- Timolol continue
Full code
--- NOTE | 2025-01-04 18:36 | W.PN.UPDATE ---
Update Note
Progress Note Update
This note serves as an addendum to the H&P by crop pest control specialist Elijah LEWIS�
HPI�
79M Independent living Res of AC lives together with
PMH: PE, HLD, BPH, HTN,hypothyroidism
Recent admission 12/21 - 12/25/2024 for FUO - NEG extensive w/u, improved after course of IV ABx
- sent to ER for abnormal PET scan 01/03 for follow-up of left lower lobe pulmonary nodule seen on CT 12/01/2024.
- PET scan report large cavitary thick-walled left upper lobe lesion likely representing an aggressive infectious process.
- P Pul: Dr. Amaral who is aware of the PET scan results
+ chronic cough with clear sputum
- denied sob, fever, chills, congestion.
- denied THOMPSON, dizzy or syncope
- Wt loss: 20lbs in 18 months.
Relevant VS
Temp Pulse Resp BP Pulse Ox
97.7 F 53 21 109/72 98
01/04/25 14:14 01/04/25 17:45 01/04/25 17:45 01/04/25 17:00 01/04/25 17:45
PE
Gen: looks tired and exhausted, appropriate
HEENT: Nl dentition
Neck: supple
Lungs: symmetric AE
Cor: RRR S1 S2
Abdomen:�soft NT NG NRT
VP OF MARKETING: Grossly intact
Psych: Nl affect
Relevant Data
12/24/24 12/25/24 01/04/25
07:19 05:41 16:20
WBC 15.0 H 12.3 H 7.5
Hgb 11.3 L 11.5 L 11.9 L
Plt Count 253 281 628 H
12/25/24 01/04/25
05:41 16:20
Sodium 130 L 135
Creatinine 0.6 L 0.7
eGFR > 60.00
Glucose 101 H
01/03/25 PET scan
- In the short interval of 1 month, a large cavitary thick-walled left upper lobe lesion has developed.
The posterior margin abuts the major fissure, and appears to extend through the fissure with irregular soft tissue opacity infiltrating the superior segment of the left lower lobe.
Given the rapid development of this finding, this likely represents an aggressive infectious process as opposed to neoplasm.
- Other smaller scattered pleural based parenchymal opacities are noted with mild FDG activity, as described, also felt to be infectious or inflammatory in nature.
- 8mm nodule in the lingula contiguous with the minor fissure with relatively mild FDG accumulation and only slightly increased on delayed imaging.
A small neoplasm cannot be entirely excluded.
- Mild lymph node activity in the left hilum and adjacent to the left mainstem bronchus, both with less FDG activity on delayed imaging, more suggestive of reactive lymph nodes as opposed to metastases.
Last hospitalist admission:DATE OF ADMISSION: 12/21/2024 - 12/25/2024
DISCHARGE DIAGNOSES:
1. Fever of unknown origin.
2. Hyponatremia.
3. Hypokalemia.
4. Ambulatory dysfunction.
5. Urinary retention.
6. Hypothyroidism.
ASSESSMENT & PLAN
Pending Rx reconciliation
Abn PET for new interval SOHAIL cavity with large thick wall - presumed lung abscess
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
- associated reactive thrombocytosis due to walled off collection
- Normalized WCC
- Recent FUO ( last Fever 12/21/24) with NEG MCCARTHY: NEG BCXs. NEG COVID. NEG Flu A & B. NEG Babesia smear.
- S/p Cefdinir 300 mg capsule 300 mg PO Q12
- Start empiric IV Unasyn
- Hold Eliquis
- NPO p MN for Bronchoscopy in AM
- Pul consult
Recent PE with extensive R LLEx
- Hold Eliquis tonight and in AM for procedure
8mm lung nodule in the lingula contiguous with the minor fissure with relatively mild FDG accumulation and only slightly increased on delayed imaging.
- A small neoplasm cannot be entirely excluded.
- Pul OP FU
Known HX
Resolved Hyponatremia
Ambulatory dysfunction: PT/OT.
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
Hypothyroidism: on LT4
Hyperlipidemia: atorvastatin.
Glaucoma
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
Full code
IP MS
[2025-01-04] MEDS: UNASYN IV (18:52)
[2025-01-04 19:00] VITALS: BP 115/59
[2025-01-04 19:46] VITALS: BP 115/59
[2025-01-04 20:27] VITALS: BP 129/64; BMI 20.7
[2025-01-04] MEDS: TIMOPTIC 0.5% OPHTHALMIC SOLUTION 1 DROP BOTH EYES (21:10)
[2025-01-04] MEDS: LIPITOR 20 MG PO (21:10)
[2025-01-04 23:24] VITALS: BP 115/57
[2025-01-05] VITALS (10 sets, daily range): BP systolic 106–146; BP diastolic 57–69
[2025-01-05] MEDS: UNASYN IV ×4 (00:30→17:46)
--- NOTE | 2025-01-05 00:37 | PTCARENOTE ---
Received patient as admit from ED. Pt AAOx3. Denies pain. Pt afebrile, VSS. Right AC IV C/D/I. Pt NPO at midnight for planned bronchoscopy in AM. Pt oriented to room. Bed in lowest position and call medel within reach.
[2025-01-05 07:07] LABS: Blood Urea Nitrogen 6 mg/dl (9-20); Calcium 8.8 mg/dl (8.4-10.2); Carbon Dioxide 26 mmol/L (22-30); Chloride 109 mmol/L (98-107); Estimated Creatinine Clearance 94 ml/min; Glucose 98 mg/dl (70-99); Potassium 4.1 mmol/L (3.5-5.1); Sodium 138 mmol/L (135-145); eGFR > 60.00
[2025-01-05 07:13] LABS: Hematocrit 33.9 % (39.0-52.0); Hemoglobin 11.1 g/dL (13.0-18.0); Mean Corp Hgb Conc. 32.7 g/dL (33.0-37.0); Mean Corpuscular Volume 83.1 fL (80.0-94.0); Platelet Count 587 10^3/uL (130-400); Red Cell Dist. Width 15.9 % (11.5-14.5)
[2025-01-05] MEDS: TIMOPTIC 0.5% OPHTHALMIC SOLUTION 1 DROP BOTH EYES ×2 (07:54→21:16)
--- NOTE | 2025-01-05 08:36 | CON.PUL ---
Consultation
Consultation Request
Date/Time Consultation Requested: 01/05/25
Date/Time Consultation Performed: 01/04/25
Performing Provider: Klaudia
Reason for Consultation: Abnormal CT/PET
Medical History
-
History of Present Illness:
Patient is a 79-year-old male with previous history of hypothyroidism, hypertension, PE on Eliquis sent to ER by Dr. Amaral for abnormal PET scan. He had obtained an outpatient PET/CT on 01/03 for follow-up of lung nodule seen on previous CT scan
12/01/2024. PET demonstrated large cavitary lesion in the left upper lobe suspicious for abscess. He was recently hospitalized at for IV antibiotics and discharged 12/25/2024. He has ongoing fever of unknown origin, associated with 20 pound
weight loss in the last 18 months.
Admitted to proceed with diagnostic bronchoscopy.
Past Medical History
Past Medical History: Other (See list below)
Social History
Tobacco: Non-smoker
Alcohol: None
Drug: None
Family History
Family History: Reviewed & Not Pertinent
Allergies / Home Medications
Allergies
Allergy/AdvReac Type Severity Reaction Status Date / Time
No Known Allergies Allergy Verified 01/04/25 14:18
Home Medications
�Medication �Instructions �Recorded �Confirmed �Last Taken �Type
atorvastatin 20 mg tablet 20 mg PO HS High Cholesterol 12/01/24 01/04/25 12/20/24 History
dutasteride 0.5 mg capsule 0.5 mg PO QPM Urinary Issue 12/01/24 01/04/25 12/20/24 History
levothyroxine 50 mcg tablet 50 mcg PO DAILY Thyroid 12/01/24 01/04/25 12/21/24 History
metoprolol succinate 50 mg 25 mg PO QPM Blood Pressure 12/01/24 01/04/25 12/20/24 History
tablet,extended release 24 hr
timolol maleate 0.5 % eye drops 1 drp BOTH EYES BID Eye Condition 12/01/24 01/04/25 12/21/24 History
apixaban 5 mg tablet (Eliquis) 5 mg PO BID Blood Clot 12/21/24 01/04/25 12/21/24 History
Prevention/Tx
therapeutic multivitamin 1 tab PO DAILY Supplement 12/21/24 01/04/25 12/21/24 History
cyanocobalamin (vitamin B-12) 1,000 mcg PO DAILY #30 caps 12/25/24 01/04/25 Unknown Rx
1,000 mcg capsule
folic acid 1 mg tablet 1 mg PO DAILY #30 tabs 12/25/24 01/04/25 Unknown Rx
tamsulosin 0.4 mg capsule 0.4 mg PO DAILY #30 caps 12/25/24 01/04/25 Unknown Rx
Review of Systems
-
History Source: Patient
All other systems: Negative unless noted
Vitals / Labs / Diagnostic Testing
Vital Signs
Temp Pulse Resp BP Pulse Ox
97.5 F 59 16 146/68 98
01/05/25 07:25 01/05/25 07:25 01/05/25 07:25 01/05/25 07:25 01/05/25 07:25
Lab Data
01/05/25 05:56
01/05/25 05:56
Diagnostic Testing:
Physical Exam
-
HEENT: Normocephalic, Anicteric and Moist Mucous Membranes
Cardiovascular: S1/S2 and Regular Rhythm
Respiratory: Clear and Non-Labored Respirations
GI: Soft, Non Distended and Non Tender
Neurology: Awake, Alert, Oriented and No Motor Deficits
Skin: Warm, Dry and Good Color
General: Comfortable, Poor Appetite and Other (thin appearing)
Assessment
-
Patient is a 79-year-old male with previous history of hypothyroidism, hypertension, PE on Eliquis sent to ER by Dr. Amaral for abnormal PET scan. He had obtained an outpatient PET/CT on 01/03 for follow-up of lung nodule seen on previous CT scan
12/01/2024. PET demonstrated large cavitary lesion in the left upper lobe suspicious for abscess. He was recently hospitalized at for IV antibiotics and discharged 12/25/2024. He has ongoing fever of unknown origin, associated with 20 pound
weight loss in the last 18 months. Admitted to proceed with diagnostic bronchoscopy.
Left upper lobe cavitary lesion, new compared to CT 12/01
Weight loss, decreased p.o. intake
Fever
Mild anemia
Thrombocytosis
Suspected aspiration, patient refused VSE
Conditions present prior to admission
Recent admission for IV antibiotics, FUO Adm 12/21-12/25/24
Adm : PE on Eliquis, diagnosed 12/01/24, discharged 12/05/24
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
BPH
Hypothyroidism
Hyperlipidemia
Hx of [place]
Colon Polyps
Skin Cancer
Memory changes
Appendix removal 1999
Cataract L/R 2022
Plan
No oxygen was needed on admission, currently saturating >90% on RA
Prior history of lung disease is noted including lung nodules noted on CT 12/01/24 and 11/08/24
No prior records for comparison, he is a lifelong non-smoker
Suspect patient has possible disseminated infection with abscess, he has had cavitary nodules as far back as 11/08/2024 scan in left lower lobe
Now with new large left upper lobe cavitary lesion
He was recently admitted for IV antibiotics but did not resolve his complaints, prior culture data negative
Imaging reviewed extensively including prior CXR/CTs
Was evaluated by speech therapy, felt to have some coughing with meals but had declined to VSE
We will reconsult speech and obtain VSE
Aspiration precautions
NPO, Eliquis on hold for procedure
Planning for diagnostic bronchoscopy today 01/05/2025
Will send for culture and cytology
If not definitive, may plan to proceed with ION biopsy 01/10--discussed with care team
May likely need bridging until then
Cultures pending, will check MRSA as well
Fevers noted
Prior ECHO results are reviewed indicating normal EF but has RV dysfunction/dilated hypokinetic ventricle
Prior contrast studies demonstrating large burden of PE - adm 11/2024
Remains on Eliquis, bridge likely needed for friday
Weight loss noted, decreased PO intake
Dietary consult
Has been seen as outpatient pulmonary in our office, follows with Dr Amaral
Has appt on 01/12 which can be kept if patient is discharged prior
I reviewed plan of care with patient
We will follow
Diagnostic Data
Chest X-Ray:
CT Scan: PET/CT 01/03/25- In the short interval of 1 month, a large cavitary thick-walled left upper lobe lesion has developed. The posterior margin abuts the major fissure, and appears to extend through the fissure with irregular soft tissue
opacity infiltrating the superior segment of the left lower lobe. Given the rapid development of this finding, this likely represents an aggressive infectious process as opposed to neoplasm.
Other smaller scattered pleural based parenchymal opacities are noted with mild FDG activity, as described, also felt to be infectious or inflammatory in nature.
8mm nodule in the lingula contiguous with the minor fissure with relatively mild FDG accumulation and only slightly increased on delayed imaging. A small neoplasm cannot be entirely excluded.
Mild lymph node activity in the left hilum and adjacent to the left mainstem bronchus, both with less FDG activity on delayed imaging, more suggestive of reactive lymph nodes as opposed to metastases.
Brain MRI 12/23/24- No acute intracranial abnormality noted.
CT 12/01/24- Vascular: Pulmonary emboli are seen within the segmental branches of the right upper lobe, right middle lobe, and right lower lobe. Pulmonary emboli are also seen within the segmental branches of the left upper lobe, lingular segment,
and left lower l be.
No emboli are seen within the main pulmonary artery on either side.
Echo: 12/01/24- 1. Technically limited study.
2. Ejection fraction is 56% by volumetric assessment.
3. Moderately dilated hypokinetic right ventricle.
4. Trileaflet calcified aortic valve with adequate leaflet excursion.
5. Mild concentric left ventricular hypertrophy.
PFT's:
Reports and relevant images were personally reviewed.
Total time spent on this consultation __75__ minutes which includes review of history, physical exam, medications, laboratory data, personal review of imaging, extensive review of outpatient records, discussion with care team and respiratory therapy.
[2025-01-05] MEDS: FOLVITE 1 MG PO (11:14)
[2025-01-05] MEDS: VITAMIN B-12 1000 MCG PO (11:14)
[2025-01-05] MEDS: FLOMAX 0.4 MG PO (11:14)
--- NOTE | 2025-01-05 11:23 | PTOTSP ---
Speech Therapy Evaluation:
Pt with acute risk factors of dysphagia including abnormal PET scan with pulmonary abscess. Pt recently evaluated by [facility], in which VSE was recommended but pt declined. At bedside, noted persistent coughing with and without PO intake,
therefore difficult to attribute coughing during intake to possible penetration/aspiration event. Aspiration risk increased due to concern for breathing/swallow coordination. VSE orders placed. [facility] to complete this afternoon as scheduling permits.
Recommend:
1. Continue regular solids and thin liquids
2. Meds as tolerated
3. Breaks during meal if SOB
4. General aspiration and reflux precautions
5. Further recommendations pending VSE
--- NOTE | 2025-01-05 12:49 | CON.ID ---
Consultation
-
Date/Time Consultation Requested: 01/04/25 18:42
Date/Time Consultation Performed: 01/04/25 12:49
Requesting Provider: Thierry DEAN
Performing Provider: Dr Hernandez
Reason for Consultation: lung abscess
Chief Complaint / Past History
Chief Complaint
cough
History of Present Illness
Mr Stephens is a 79 year old male with past medical history notable for PE. he was first admitted to 12/01-12/05 for chest pain and 3-4 weeks of progressive PETER, an outpatient CT chest showed a pleural based pulmonary nodule and he reported a
50 lb weight loss over two years. he was found to have bilateral PEs and DVT and suspected pneumonia which was treated with a 10 day total course of unasyn/augmentin.
Then he was more recently admitted here 12/21 to 12/25 for fever weakness and a fall, elevated procalcitonin to 0.55, CXR without active CP disease, blodo cultures negative, babesia smear negative he was treated with ceftriaxone with resolution of
fever though no etiology of the fever was identified; he completed about a 7 day course of ceftriaxone/cefdinir.
Then 01/03 he underwent outpatient PET scan notable for large thick walled cavity in the SOHAIL - thought to be infection due to rapid development, other scattered pleural based parenchymal opacities, 8 mm nodule in the lingula. He was referred to the
ER by his esl teacher Dr Amaral. Patient reports chronic cough with clear sputum. His reports relapse of fevers after completion of the cefdinir but no shortness of breath, congestion. No dizziness, headache, abdominal pain, nausea,
vomiting, diarrhea, dysuria. No loss of appetite. he was referred for bronchoscopy.
Since arrival here he has been afebrile, bp stable, wbc 7.5, hgb 11.9, plt 628, no L shift, na 135, cr 0.7, T bili 0.4, ast 23, alt 45, alk phos 159, Bronchoscopy today showed cloudy/turbid return and mucous plugs, brushings of left upper lobe
tissue was sent. Post bronchoscopy CXR without pneumothorax. Patient is currently on unasyn. ID is consutled for assistance with management.
Past History
Additional Past Medical History:
PE on Eliquis, diagnosed 12/01/24, discharged 12/05/24
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
BPH
Hypothyroidism
Hyperlipidemia
Hx of [place]
Colon Polyps
Skin Cancer
Memory changes
Appendix removal 1999
Cataract L/R 2022
Additional Past Surgical History:
Appendectomy, bilateral cataract surgery
Allergy History:
No Known Allergies Allergy (Verified 01/04/25 14:18)
Medications Reviewed: Yes
Social History
Tobacco: Former Smoker
Alcohol: Occasional
Drug: None
Family History
Family History: Not Pertinent
Review of Systems
Review of Systems
Constitutional: Reports No Symptoms
EENT: Reports No Symptoms
Respiratory: Reports Cough
Cardiac: Reports No Symptoms
Abdomen/GI: Reports No Symptoms
: Reports No Symptoms
Musculoskeletal: Reports No Symptoms
Skin: Reports No Symptoms
Neurological: Reports No Symptoms
Endocrine: Reports No Symptoms
Hematologic/Lymphatic: Reports No Symptoms
Psych: Reports No Symptoms
Vital Signs
Temp Pulse Resp BP Pulse Ox
98.0 F 55 17 125/60 98
01/05/25 10:45 01/05/25 10:45 01/05/25 10:45 01/05/25 10:45 01/05/25 10:45
Physical Exam
Physical Exam
Constitutional: No Acute Distress
Cardiovascular: Regular Rate and S1/S2; Negative Murmur or Rub
Pulmonary: Clear and Symmetric; Negative Wheezes, Rales or Rhonchi
Gastrointestinal: Soft, Non Tender, Non Distended and Normal Bowel Sounds
Skin: Warm and Dry; Negative Rash or Jaundice
Lab / Diagnostic Study Results
01/05/25 05:56
01/05/25 05:56
Abs Immat Gran (auto) 0.0 10^3/uL (0-0.05) 01/04/25 16:20
Absolute Neuts (auto) 5.4 10^3/uL (1.4-6.5) 01/04/25 16:20
Absolute Lymphs (auto) 1.1 10^3/uL (1.2-3.4) L 01/04/25 16:20
Absolute Monos (auto) 0.7 10^3/uL (0.1-0.6) H 01/04/25 16:20
Absolute Basos (auto) 0.1 10^3/uL (0-0.2) 01/04/25 16:20
Immature Gran % 0.4 % (0-0.5) 01/04/25 16:20
Neutrophils % 71.9 % (42.2-75.2) 01/04/25 16:20
Lymphocytes % 15.2 % (20.5-51.1) L 01/04/25 16:20
Monocytes % 8.9 % (1.7-9.3) 01/04/25 16:20
Eosinophils % 2.3 % (0-6) 01/04/25 16:20
Basophils % 1.3 % (0-2) 01/04/25 16:20
Lactic Acid 1.1 mmol/L (0.7-2.0) 01/04/25 16:20
Microbiology Results
Micro:
01/05/25 09:15 Respiratory Culture - Pending
Bronch Left Upper Lobe Gram Stain - Preliminary
01/05/25 09:16 Fungal Culture - Preliminary
Bronch Left Upper Lobe Culture in progress.
Positive cultures are reported as soon as detected.
Final report to follow in four to five weeks.
01/05/25 09:16 Acid Fast Bacilli Smear - Pending
Bronch Left Upper Lobe Acid Fast Bacilli Culture - Pending
01/05/25 10:28 MRSA Screen - Pending
Nose
01/04/25 18:35 Blood Culture - Pending
Blood/Venous
01/04/25 16:20 Blood Culture - Pending
Blood/Venous
Assessment / Plan
Probable Pulmonary Abscess
Recent suspected pneumonia
Recent FUO
- s/p bronchoscopy with aerobic, fungal and afb cultures in progress
- gram stain from routine culture with rare GNR
- pathology in progress
- MRSA screen in progress
- 01/04 blood cultures x2 in progress
- ESR and CRP
- agree with unasyn
- follow clinically
--- NOTE | 2025-01-05 13:52 | W.PN.HOSP.TC ---
Today's Communication/Plan
-
see plan
Assessment / Plan
Assessment / Plan
Mr. Abdiel Stephens is a 79 yo man with hx PE, HLD, BPH, essential HTN, hypothyroidism, recent admission 12/21-12/25/24 for fever unknown origin s/p antibiotic course sent to the hospital for abnormal outpatient PET. PET scan showed large cavitary
thick-walled left upper lobe lesion.'
PET
IMPRESSION:
In the short interval of 1 month, a large cavitary thick-walled left upper lobe lesion has developed. The posterior margin abuts the major fissure, and appears to extend through the fissure with irregular soft tissue opacity infiltrating the
superior segment of the left lower lobe. Given the rapid development of this finding, this likely represents an aggressive infectious process as opposed to neoplasm.
Other smaller scattered pleural based parenchymal opacities are noted with mild FDG activity, as described, also felt to be infectious or inflammatory in nature.
8mm nodule in the lingula contiguous with the minor fissure with relatively mild FDG accumulation and only slightly increased on delayed imaging. A small neoplasm cannot be entirely excluded.
Mild lymph node activity in the left hilum and adjacent to the left mainstem bronchus, both with less FDG activity on delayed imaging, more suggestive of reactive lymph nodes as opposed to metastases.
Bronchoscopy 01/05/25
Impression:
- Abnormal CT scan of chest
- Left upper lobe mass
- The airway examination was normal.
- Bronchoalveolar lavage was performed.
- Brushings were obtained.
- Normal tracheobronchial tree.
Recommendation:
- Await BAL results.
- Chest X-ray post-procedure.
- Observe patient in endoscopic recovery unit for ongoing care.
Pulmonary abscess
- IV Unasyn
- s/p bronchoscopy this morning, s/p BAL - follow up cultures
- ID consulted appreciated
- continue IV Unasyn
- patient may need repeat bronch on Friday per Pulmonary
- *Per Pulm, OK to resume AC now - will do IV heparin gtt as may need repeat procedure
# Anemia of chronic disease
- Hemoglobin stable at 11.9, no active bleeding
- Continue to monitor
#Recent pulmonary embolism
# Right lower extremity DVT
-Hold Eliquis
-start IV heparin gtt
Hypothyroidism -continue levothyroxine.
#Hyperlipidemia -atorvastatin.
#BPH
-Dutasteride, Flomax continued
#Essential hypertension
- Metoprolol continued
#Glaucoma
- Timolol continue
Full code
Anticipated Discharge: > 48 hours
Subjective/Interval History
-
Date of Service: January 05, 2025
feeling okay
seen post bronch
no pain
no fevers over past several days
Objective Data
-
Labs:
Laboratory Results
01/05/25
05:56
WBC 7.8
Hgb 11.1 L
Hct 33.9 L
Plt Count 587 H
Sodium 138
Potassium 4.1
Chloride 109 H
Carbon Dioxide 26
BUN 6 L
Creatinine 0.6 L
Glucose 98
Calcium 8.8
Vital Signs:
Vital Signs
Temp Pulse Resp BP Pulse Ox
98.0 F 55 17 125/60 98
01/05/25 10:45 01/05/25 10:45 01/05/25 10:45 01/05/25 10:45 01/05/25 10:45
I&O
01/04/25 01/05/25 01/06/25
06:59 06:59 06:59
Intake Total 480 / 480 50 / 50
Balance 480 / 480 50 / 50
Review of Systems
-
History Source: Patient
All other systems: Reviewed and negative
Physical Exam
-
General: Well Developed and No Apparent Distress
HEENT: Normocephalic, Atraumatic and Moist Mucous Membranes
Respiratory: Clear to Auscultation
Cardiac: Regular Rhythm and S1/S2; Negative Murmur, Rub or Gallop
GI: Soft, Nontender, Nondistended and Normal Bowel Sounds; Negative Organomegaly
Rectal: Deferred by Provider
Musculoskeletal: No Clubbing, No Cyanosis and No Edema
Skin: Negative Rash
Neuro: Nonfocal/Grossly Intact
Data Reviewed
-
Diagnostic Radiology: Report Reviewed by me
Labs: Labs Reviewed by me
--- NOTE | 2025-01-05 14:20 | CM ---
patient seen at bedside
DX: Pulmonary Abcess
PMH for PE, HLD, BPH, HTN, hypothyroidism
s/p bronchoscopy
patient resides at [facility] [place] with , elevator access
PLOF: Independent with walker
DME: Walker, shower chair, transport wheelchair
Patient is current with [facility] (recent hospitalization), denies Rehab
referral entered in [facility]port
PCP: Rosey Eason
Pharmacy: [facility] [place], [facility] [address]
PLAN: anticipate home with [facility], CM to continue to follow for discharge planning/needs
--- NOTE | 2025-01-05 14:30 | W.PN.UPDATE ---
Addendum entered and electronically signed by Kathi Moreno MD 01/05/25 16:35:
head CT
IMPRESSION:
No acute intracranial abnormality.
-OK to start IV heparin gtt for recent PE
Original Note:
Update Note
Progress Note Update
Patient with newly diagnosed severe silent dysphagia. Per ST, observed right lingual deviation during oral motor exam which was not observed in evaluation in November. Concern for new CVA event
-obtain urgent head CT
-if head CT without bleed then OK to start heparin gtt this evening (as if stroke occurred, must be several days out given time for development of abscess)
-MRI Brain ordered (if positive will need CTA angio for vascular work-up, TTE etc and formal neuro consult)
-case discussed with neurology, recommends formal consult if MRI positive.
[2025-01-05 14:33] LABS: Hematocrit 36.1 % (39.0-52.0); Hemoglobin 11.7 g/dL (13.0-18.0); Mean Corp Hgb Conc. 32.4 g/dL (33.0-37.0); Mean Corpuscular Volume 82.0 fL (80.0-94.0); Platelet Count 566 10^3/uL (130-400); Red Cell Dist. Width 15.8 % (11.5-14.5)
[2025-01-05 14:40] LABS: APTT 32.9 Sec (23.4-35.0)
--- NOTE | 2025-01-05 15:03 | PTOTSP ---
Speech Therapy VSE:
Patient presents with functional oral and severe pharyngeal dysphagia. Patient demonstrated silent aspiration with and without compensatory strategies with thin liquids. Deep laryngeal penetration observed across remaining consistencies assessed.
Cued cough ineffective at clearing material from vestibule/airway. Pharyngeal residue trace-mild with liquids and moderate-severe with puree/solids. Given R lingual deviation noted during oral motor assessment, question if severity of dysphagia
neuro related. Discussed with medical team. Please see patient care note for full details of penetration/aspiration and swallowing physiology.
Recommend:
1. Safest diet recommendation would be NPO given absent sensory response to airway invasion, poor airway clearance, increasing pharyngeal residuals, and unsuccessful compensatory strategies.
2. Medications non-oral
3. Initiate ARHP via sparing ice chips following oral care and with supervision
4. Modifiable risk factors for aspiration pneumonia including encouraging frequent and thorough oral care, pulmonary hygiene measures, and increasing physical mobility as medically feasible
5. SECURITY SUPERVISOR to follow for education regarding VSE findings and recommendations and training in pharyngeal strengthening exercises. Patient would benefit from repeat instrumental prior to diet initiation due to silent aspiration
[2025-01-05] MEDS: D5LR 1000 IV (16:16)
[2025-01-05] MEDS: PROSCAR 5 MG PO (17:46)
[2025-01-05] MEDS: TOPROL XL PO (17:47)
[2025-01-05] MEDS: HEPARIN 25000 UNITS/250 ML IV (20:26)
[2025-01-05] MEDS: LIPITOR PO (22:41)
[2025-01-06] VITALS (7 sets, daily range): BP systolic 108–148; BP diastolic 56–73
[2025-01-06 00:47] LABS: APTT 51.3 Sec (23.4-35.0)
[2025-01-06] MEDS: HEPARIN 5200 UNITS IV (01:00)
[2025-01-06] MEDS: UNASYN IV ×5 (01:04→23:56)
[2025-01-06] MEDS: D5LR 1000 IV ×2 (07:00→17:02)
[2025-01-06 08:08] LABS: Hematocrit 37.9 % (39.0-52.0); Hemoglobin 12.2 g/dL (13.0-18.0); Mean Corp Hgb Conc. 32.2 g/dL (33.0-37.0); Mean Corpuscular Volume 83.7 fL (80.0-94.0); Platelet Count 592 10^3/uL (130-400); Red Cell Dist. Width 15.8 % (11.5-14.5)
[2025-01-06 08:23] LABS: APTT 134.9 Sec (23.4-35.0)
[2025-01-06] MEDS: FLOMAX 0.4 MG PO (08:27)
[2025-01-06] MEDS: TIMOPTIC 0.5% OPHTHALMIC SOLUTION 1 DROP BOTH EYES ×2 (08:27→20:28)
[2025-01-06] MEDS: FOLVITE 1 MG PO (08:27)
[2025-01-06] MEDS: VITAMIN B-12 1000 MCG PO (08:27)
[2025-01-06 09:06] LABS: Blood Urea Nitrogen 6 mg/dl (9-20); Calcium 9.1 mg/dl (8.4-10.2); Carbon Dioxide 28 mmol/L (22-30); Chloride 104 mmol/L (98-107); Estimated Creatinine Clearance 94 ml/min; Glucose 121 mg/dl (70-99); Potassium 3.9 mmol/L (3.5-5.1); Sodium 137 mmol/L (135-145); eGFR > 60.00
[2025-01-06 09:10] LABS: C-Reactive Protein 35.30 mg/L (0.0-10.00)
--- NOTE | 2025-01-06 12:47 | W.PN.HOSP.TC ---
Today's Communication/Plan
-
IV AB
Anticoagulation
Switch Heparin gtt to Lovenox if Ok with pulm
Assessment / Plan
Assessment / Plan
79-year-old male with who was admitted to [facility] 01/04 to 12/25/2024 for fever of unknown origin. He got a PET scan as OP - showed large cavitary thick-walled left upper lobe lesion. Pt was started on an antibiotic course and
sent to the hospital .
PET- In the short interval of 1 month, a large cavitary thick-walled left upper lobe lesion has developed. The posterior margin abuts the major fissure, and appears to extend through the fissure with irregular soft tissue opacity infiltrating the
superior segment of the left lower lobe. Given the rapid development of this finding, this likely represents an aggressive infectious process as opposed to neoplasm.
Other smaller scattered pleural based parenchymal opacities are noted with mild FDG activity, as described, also felt to be infectious or inflammatory in nature.
8mm nodule in the lingula contiguous with the minor fissure with relatively mild FDG accumulation and only slightly increased on delayed imaging. A small neoplasm cannot be entirely excluded.
Mild lymph node activity in the left hilum and adjacent to the left mainstem bronchus, both with less FDG activity on delayed imaging, more suggestive of reactive lymph nodes as opposed to metastases.
Bronchoscopy 01/05/25
Impression:
- Abnormal CT scan of chest
- Left upper lobe mass
- The airway examination was normal.
- Bronchoalveolar lavage was performed.
- Brushings were obtained.
- Normal tracheobronchial tree.
Recommendation:
- Await BAL results.
- Chest X-ray post-procedure.
- Observe patient in endoscopic recovery unit for ongoing care.
MRI of the brain-no acute intracranial abnormality
Echo 12/01/2024-EF 56%. Moderately dilated hypokinetic RV. Mild concentric LVH. Trileaflet aortic valve with adequate leaflet excursion
CVS: S1-S2 normal
Chest: CTA B/L
Abdomen: Soft, NT , Bowel sounds present
Extremities: No edema,
#Left Upper lobe Pulmonary abscess
- IV Unasyn
- s/p [id number]
- ID consulted appreciated
- continue IV Unasyn
- patient may need repeat bronch on Friday per Pulmonary
- Pathology pending
- Per Pulm, OK to resume AC now - On IV heparin gtt , switch to Lovenox if OK with pulm ( texted)
# Dysphagia secondary to unknown reason
-MRI of the brain without any stroke
-Currently NPO
-During bronchoscopy patient had laryngeal spasm therefore had to apply more lidocaine per pulmonary wait for recovery and patient to be reevaluated by speech again tomorrow
# Anemia of chronic disease
- Hemoglobin stable at 11.9, no active bleeding
- Continue to monitor
#Recent pulmonary embolism
#Right lower extremity DVT
-Hold Eliquis
-On Heparin gtt now
#Thrombocytosis likely secondary to infection
#Hypothyroidism -continue levothyroxine.
#Hyperlipidemia -atorvastatin.
#BPH
-Dutasteride, Flomax continued
#Essential hypertension
- Metoprolol continued
#Glaucoma
- Timolol continue
#Full code
D/W at bed side
DRip renewed
Labs reviewed.
CRP ordered yesterday reviewed.
Part of this note was created using voice recognition system. Occasional wrong word or��sound alike� substitutions may have inadvertently occurred due to the inherent limitations of voice recognition software. If noted kindly bring it to my
attention for correction.
Anticipated Discharge: > 48 hours
Subjective/Interval History
-
Date of Service: January 06, 2025
Objective Data
-
Labs:
Laboratory Results
01/06/25 01/06/25 01/06/25
00:13 07:26 15:30
WBC 9.5
Hgb 12.2 L
Hct 37.9 L
Plt Count 592 H
APTT 51.3 H 134.9 H Pending
Sodium 137
Potassium 3.9
Chloride 104
Carbon Dioxide 28
BUN 6 L
Creatinine 0.6 L
Glucose 121 H
Calcium 9.1
Vital Signs:
Vital Signs
Temp Pulse Resp BP Pulse Ox
97.4 F 50 16 108/56 98
01/06/25 11:45 01/06/25 11:45 01/06/25 11:45 01/06/25 11:45 01/06/25 11:45
I&O
01/05/25 01/06/25 01/07/25
06:59 06:59 06:59
Intake Total 480 / 480 827 / 827
Output Total 875 / 875
Balance 480 / 480 -48 / -48
--- NOTE | 2025-01-06 12:54 | W.PN.UPDATE ---
Update Note
Progress Note Update
Discussed with Pulm
OK to start ELiquis
No more Bronch planned.
Will DC Heparin gtt at 8 pm and start Eliquis
[2025-01-06] MEDS: HEPARIN 25000 UNITS/250 ML IV (14:21)
--- NOTE | 2025-01-06 15:03 | W.PN.ID1 ---
Date of Service
Date of Service: January 06, 2025
Today's Communication
Continue Unasyn
Assessment / Plan
Probable Pulmonary Cavitary Abscess
Recent suspected pneumonia
Recent FUO
Unintentional weight loss
- s/p bronchoscopy with aerobic, fungal and afb cultures in progress
- cx: GNR
- pathology in progress
- MRSA screen neg
- 01/04 blood cultures x2 in progress, neg
- ESR and CRP
- For swallow eval
- Continue with Unasyn pending cx data.
- follow clinically
Chief Complaint
-: Pneumonia
Subjective / Review of Systems
at bedside.
Pt denies cough/SOB. Good dental care. Denies cough with eating.
Vital Signs / Physical Exam
Vital Signs
Vital Signs
Temp Pulse Resp BP Pulse Ox
97.4 F 50 16 108/56 98
01/06/25 11:45 01/06/25 11:45 01/06/25 11:45 01/06/25 11:45 01/06/25 11:45
Physical Exam
Constitutional: Comfortable and Cachetic
Cardiovascular: Regular Rate and S1/S2
Pulmonary: Clear
Gastrointestinal: Soft, Non Tender, Non Distended and Normal Bowel Sounds
Extremities: Negative Edema
Neurological: AO x 3
Objective Data
Lab Data
Lab Results
01/06/25 07:26
01/06/25 07:26
ESR 63 mm/hour (0-20) H 01/06/25 07:26
APTT 134.9 Sec (23.4-35.0) H 01/06/25 07:26
Estimated Creat Clear 94 ml/min 01/06/25 07:26
Lactic Acid 1.1 mmol/L (0.7-2.0) 01/04/25 16:20
Total Bilirubin 0.4 mg/dl (0.2-1.3) 01/04/25 16:20
AST 23 U/L (17-59) 01/04/25 16:20
ALT 45 U/L (0-50) 01/04/25 16:20
Alkaline Phosphatase 159 U/L (38-126) H 01/04/25 16:20
C-Reactive Protein 35.30 mg/L (0.0-10.00) H 01/06/25 07:26
Most recent labs reviewed.
Micro Results:
01/05/25 10:28 MRSA Screen - Final
Nose No Methicillin Resistant Staphylococcus aureus isolated.
01/05/25 09:15 Respiratory Culture - Preliminary
Bronch Left Upper Lobe Gram negative bacilli
Gram Stain - Preliminary
01/04/25 18:35 Blood Culture - Preliminary
Blood/Venous No Growth in 24 hours- Final report to follow
01/04/25 16:20 Blood Culture - Preliminary
Blood/Venous No Growth in 24 hours- Final report to follow
01/05/25 09:16 Fungal Culture - Preliminary
Bronch Left Upper Lobe Culture in progress.
Positive cultures are reported as soon as detected.
Final report to follow in four to five weeks.
01/05/25 09:16 Acid Fast Bacilli Smear - Pending
Bronch Left Upper Lobe Acid Fast Bacilli Culture - Pending
--- NOTE | 2025-01-06 16:50 | W.PN.PUL3 ---
Today's Communication / Plan
-
Continue antibiotics per ID
Follow-up cultures from BAL on 01/05
No need for additional bronchoscopic intervention at this juncture given that there is positive microbial data seen from diagnostic bronchoscopy on 01/05
Follow-up pathology from SOHAIL anterior segmental bronchus brushing
Aspiration precautions
Diet as per PULVERIZER FEEDER - currently NPO
Okay to transition off heparin drip back to NOAC
Pulmonary service will continue to follow along
Assessment
-
Patient is a 79-year-old male with previous history of hypothyroidism, hypertension, PE on Eliquis sent to ER by Dr. Amaral for abnormal PET scan. He had obtained an outpatient PET/CT on 01/03 for follow-up of lung nodule seen on previous CT scan
12/01/2024. PET demonstrated large cavitary lesion in the left upper lobe suspicious for abscess. He was recently hospitalized at for IV antibiotics and discharged 12/25/2024. He has ongoing fever of unknown origin, associated with 20 pound
weight loss in the last 18 months. Admitted to proceed with diagnostic bronchoscopy.
Left upper lobe cavitary lesion, new compared to CT 12/01
Weight loss, decreased p.o. intake
Fever
Mild anemia
Thrombocytosis
Suspected aspiration, patient refused VSE
Conditions present prior to admission
Recent admission for IV antibiotics, FUO Adm 12/21-12/25/24
Adm : PE on Eliquis, diagnosed 12/01/24, discharged 12/05/24
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
BPH
Hypothyroidism
Hyperlipidemia
Hx of [place]
Colon Polyps
Skin Cancer
Memory changes
Appendix removal 1999
Cataract L/R 2022
Plan
No oxygen was needed on admission, currently saturating >90% on RA
Prior history of lung disease is noted including lung nodules noted on CT 12/01/24 and 11/08/24
No prior records for comparison, he is a lifelong non-smoker
Suspect patient has possible disseminated infection with abscess, he has had cavitary nodules as far back as 11/08/2024 scan in left lower lobe
Now with new large left upper lobe cavitary lesion
He was recently admitted for IV antibiotics but did not resolve his complaints, prior culture data negative
Imaging reviewed extensively including prior CXR/CTs
Was evaluated by speech therapy, felt to have some coughing with meals but had declined to VSE
Speech saw the patient again on 01/05, and recommend NPO due to silent aspiration with concern for lack of compensatory strategies with thin liquids. Apparently, there was right lingual deviation during oral motor assessment questioning if
dysphagia is neurologically related. Patient did have a brain MRI on 01/05 which showed no acute intracranial abnormality.
Aspiration precautions
Patient is s/p bronchoscopy on 01/[address] Rudolph, with SOHAIL BAL performed, as well as brushing of anterior segment of left upper lobe. BAL show far is growing GNR � follow-up species + sensitivities
- Left upper lobe anterior segmental bronchus brushing pathology still pending
- Given that the SOHAIL BAL is growing GNR, no need for additional diagnostic testing at this time although he may need additional bronchoscopic interventions in the near future depending on his clinical course and remainder of recent bronchoscopic
study results
MRSA swab negative
Remainder of BAL microbiological studies show NGTD (fungus + AFB)
Blood cultures collected on 01/04/2025 show NGTD as well
Trend WBC and monitor temperature curve; of note, he has been afebrile since admission
Prior ECHO results are reviewed indicating normal EF but has RV dysfunction/dilated hypokinetic ventricle - -> eventually will need repeat echo to assess for improvement in RV dysfunction
Prior contrast studies demonstrating large burden of PE - adm 11/2024
Now the patient had his bronchoscopy, okay to resume Eliquis, and if not on oral means needed due to aspiration risk, then can continue heparin drip or start therapeutic Lovenox
Weight loss noted, decreased PO intake
Dietary consult
Has been seen as outpatient pulmonary in our office, follows with Dr Amaral
Has appt on 01/12 which can be kept if patient is discharged prior
Dr. Otero reviewed plan of care with patient and his , Nilda, to their satisfaction
We will follow
Diagnostic Data
Chest X-Ray:
CT Scan: PET/CT 01/03/25- In the short interval of 1 month, a large cavitary thick-walled left upper lobe lesion has developed. The posterior margin abuts the major fissure, and appears to extend through the fissure with irregular soft tissue
opacity infiltrating the superior segment of the left lower lobe. Given the rapid development of this finding, this likely represents an aggressive infectious process as opposed to neoplasm.
Other smaller scattered pleural based parenchymal opacities are noted with mild FDG activity, as described, also felt to be infectious or inflammatory in nature.
8mm nodule in the lingula contiguous with the minor fissure with relatively mild FDG accumulation and only slightly increased on delayed imaging. A small neoplasm cannot be entirely excluded.
Mild lymph node activity in the left hilum and adjacent to the left mainstem bronchus, both with less FDG activity on delayed imaging, more suggestive of reactive lymph nodes as opposed to metastases.
Brain MRI 12/23/24- No acute intracranial abnormality noted.
CT 12/01/24- Vascular: Pulmonary emboli are seen within the segmental branches of the right upper lobe, right middle lobe, and right lower lobe. Pulmonary emboli are also seen within the segmental branches of the left upper lobe, lingular segment,
and left lower l be.
No emboli are seen within the main pulmonary artery on either side.
Echo: 12/01/24- 1. Technically limited study.
2. Ejection fraction is 56% by volumetric assessment.
3. Moderately dilated hypokinetic right ventricle.
4. Trileaflet calcified aortic valve with adequate leaflet excursion.
5. Mild concentric left ventricular hypertrophy.
PFT's:
Reports and relevant images were personally reviewed.
Total time spent on this consultation __41__ minutes which includes review of history, physical exam, medications, laboratory data, personal review of imaging, extensive review of outpatient records, discussion with care team and respiratory therapy.
Subjective Data
-
Date of Service:
Date of Service: January 06, 2025
Chief Complaint: Pulmonary Follow Up
Subjective:
Patient seen earlier this afternoon (late note entry). Patient's , Nilda, is present at bedside. Patient has been afebrile overnight. He denies coughing while eating or drinking at baseline. He currently feels well, with no current
complaints of chest pain, shortness of breath, THOMPSON, nausea, fevers or chills.
Review of Systems
General: Other (Negative unless mentioned above)
Objective Data
Data Reviewed
Vital Signs / I&O / Oxygen:
Vital Signs
Temp Pulse Resp BP Pulse Ox
97.2 F 49 16 130/66 94
01/06/25 07:43 01/06/25 07:43 01/06/25 07:43 01/06/25 07:43 01/06/25 08:00
Intake and Output
01/05/25 01/06/25 01/07/25
06:59 06:59 06:59
Intake Total 480 / 480 827 / 827
Output Total 875 / 875
Balance 480 / 480 -48 / -48
SaO2 94
Physical Exam
General: Respiratory Distress (n), Comfortable, Chills (n) and Sweats (n)
HEENT: Normocephalic and Anicteric
Cardiovascular: S1-S2 and Peripheral Edema (n)
Respiratory: Wheeze (n), Crackles (Bibasilar), Rhonchi (Left middle lung field), Non-Labored Respirations and Stridor (n)
GI: Soft, Non Distended, Non Tender and Normal Bowel Sounds
Neurology: Awake, Alert, Oriented and Tremors (n)
Skin: Warm, Dry, Cyanosis (n) and Jaundice (n)
Labs/Micro/Reports
Lab Data
01/06/25 07:26
01/06/25 07:26
Laboratory Results
01/05/25 01/06/25 01/06/25
14:14 00:13 07:26
APTT 32.9 51.3 H 134.9 H
Microbiology
01/05/25 09:15 Bronch Left Upper Lobe Respiratory Culture - Preliminary
Gram negative bacilli
01/05/25 09:15 Bronch Left Upper Lobe Gram Stain - Preliminary
01/04/25 18:35 Blood/Venous Blood Culture - Preliminary
No Growth in 24 hours- Final report to follow
01/04/25 16:20 Blood/Venous Blood Culture - Preliminary
No Growth in 24 hours- Final report to follow
01/05/25 09:16 Bronch Left Upper Lobe Fungal Culture - Preliminary
Culture in progress.
Positive cultures are reported as soon as detected.
Final report to follow in four to five weeks.
[2025-01-06] MEDS: TOPROL XL PO (17:05)
[2025-01-06] MEDS: PROSCAR 5 MG PO (17:06)
[2025-01-06] MEDS: LIPITOR 20 MG PO (20:27)
[2025-01-06] MEDS: ELIQUIS 5 MG PO (20:28)
[2025-01-07] VITALS (7 sets, daily range): BP systolic 117–139; BP diastolic 50–74; BMI 20.7
[2025-01-07 05:56] LABS: Hematocrit 35.0 % (39.0-52.0); Hemoglobin 11.6 g/dL (13.0-18.0); Mean Corp Hgb Conc. 33.1 g/dL (33.0-37.0); Mean Corpuscular Volume 81.8 fL (80.0-94.0); Platelet Count 557 10^3/uL (130-400); Red Cell Dist. Width 15.8 % (11.5-14.5)
[2025-01-07] MEDS: UNASYN IV ×4 (06:27→23:25)
[2025-01-07 06:48] LABS: Blood Urea Nitrogen 4 mg/dl (9-20); Calcium 9.1 mg/dl (8.4-10.2); Carbon Dioxide 29 mmol/L (22-30); Chloride 105 mmol/L (98-107); Estimated Creatinine Clearance 94 ml/min; Glucose 108 mg/dl (70-99); Potassium 3.9 mmol/L (3.5-5.1); Sodium 138 mmol/L (135-145); eGFR > 60.00
[2025-01-07] MEDS: FLOMAX 0.4 MG PO (07:53)
[2025-01-07] MEDS: FOLVITE 1 MG PO (07:53)
[2025-01-07] MEDS: ELIQUIS 5 MG PO ×2 (07:53→19:58)
[2025-01-07] MEDS: VITAMIN B-12 1000 MCG PO (07:53)
[2025-01-07] MEDS: TIMOPTIC 0.5% OPHTHALMIC SOLUTION 1 DROP BOTH EYES ×2 (07:53→19:58)
[2025-01-07] MEDS: D5LR 1000 IV (08:00)
--- NOTE | 2025-01-07 09:21 | W.PN.PUL3 ---
Addendum entered and electronically signed by Alessia Rudolph, DO 01/07/25 12:37:
Has appt with Dr Amaral next week in office on 01/12, can keep if d/c planning done in time
Original Note:
Today's Communication / Plan
-
Cultures reviewed, abx per ID--less likely to need procedure Friday
Presumptive aspiration PNA-Speech following
Weight loss ongoing, dietary consult
PT/OT assessments
Can assess for d/c planning if otherwise stable
Assessment
-
Patient is a 79-year-old male with previous history of hypothyroidism, hypertension, PE on Eliquis sent to ER by Dr. Amaral for abnormal PET scan. He had obtained an outpatient PET/CT on 01/03 for follow-up of lung nodule seen on previous CT scan
12/01/2024. PET demonstrated large cavitary lesion in the left upper lobe suspicious for abscess. He was recently hospitalized at for IV antibiotics and discharged 12/25/2024. He has ongoing fever of unknown origin, associated with 20 pound
weight loss in the last 18 months. Admitted to proceed with diagnostic bronchoscopy.
Left upper lobe cavitary lesion, new compared to CT 12/01
Weight loss, decreased p.o. intake
Fever
Mild anemia
Thrombocytosis
Suspected aspiration, patient refused VSE
Conditions present prior to admission
Recent admission for IV antibiotics, FUO Adm 12/21-12/25/24
Adm : PE on Eliquis, diagnosed 12/01/24, discharged 12/05/24
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
BPH
Hypothyroidism
Hyperlipidemia
Hx of [place]
Colon Polyps
Skin Cancer
Memory changes
Appendix removal 1999
Cataract L/R 2022
Plan
No oxygen was needed on admission, currently saturating >90% on RA
Prior history of lung disease is noted including lung nodules noted on CT 12/01/24 and 11/08/24
No prior records for comparison, he is a lifelong non-smoker
Suspect patient has possible disseminated infection with abscess, he has had cavitary nodules as far back as 11/08/2024 scan in left lower lobe
Now with new large left upper lobe cavitary lesion
He was recently admitted for IV antibiotics but did not resolve his complaints, prior culture data negative
Imaging reviewed extensively including prior CXR/CTs
Was evaluated by speech therapy, felt to have some coughing with meals but had declined to VSE
Speech saw the patient again on 01/05, and recommend NPO due to silent aspiration with concern for lack of compensatory strategies with thin liquids. Apparently, there was right lingual deviation during oral motor assessment questioning if
dysphagia is neurologically related. Patient did have a brain MRI on 01/05 which showed no acute intracranial abnormality. Could be due to lidocaine use through procedure.
Repeat testing done today improved, diet is advanced
Aspiration precautions
Patient is s/p bronchoscopy on 01/[address] Rudolph, with SOHAIL BAL performed, as well as brushing of anterior segment of left upper lobe. BAL show far is growing GNR � follow-up species + sensitivities
Left upper lobe anterior segmental bronchus brushing pathology still pending
Given that the SOHAIL BAL is growing GNR, no need for additional diagnostic testing at this time although he may need additional bronchoscopic interventions in the near future depending on his clinical course and remainder of recent bronchoscopic study
results
MRSA swab negative
Remainder of BAL microbiological studies show NGTD (fungus + AFB)
Blood cultures collected on 01/04/2025 show NGTD as well
Trend WBC and monitor temperature curve; of note, he has been afebrile since admission
Prior ECHO results are reviewed indicating normal EF but has RV dysfunction/dilated hypokinetic ventricle - -> eventually will need repeat echo to assess for improvement in RV dysfunction
Prior contrast studies demonstrating large burden of PE - adm 11/2024
Now the patient had his bronchoscopy, okay to resume Eliquis, and if not on oral means needed due to aspiration risk, then can continue heparin drip or start therapeutic Lovenox
Weight loss noted, decreased PO intake
Dietary consult
Has been seen as outpatient pulmonary in our office, follows with Dr Amaral
Has appt on 01/12 which can be kept if patient is discharged prior
Dr. Otero reviewed plan of care with patient and his , Nilda, to their satisfaction
Discharge planning
Diagnostic Data
Chest X-Ray:
CT Scan: PET/CT 01/03/25- In the short interval of 1 month, a large cavitary thick-walled left upper lobe lesion has developed. The posterior margin abuts the major fissure, and appears to extend through the fissure with irregular soft tissue
opacity infiltrating the superior segment of the left lower lobe. Given the rapid development of this finding, this likely represents an aggressive infectious process as opposed to neoplasm.
Other smaller scattered pleural based parenchymal opacities are noted with mild FDG activity, as described, also felt to be infectious or inflammatory in nature.
8mm nodule in the lingula contiguous with the minor fissure with relatively mild FDG accumulation and only slightly increased on delayed imaging. A small neoplasm cannot be entirely excluded.
Mild lymph node activity in the left hilum and adjacent to the left mainstem bronchus, both with less FDG activity on delayed imaging, more suggestive of reactive lymph nodes as opposed to metastases.
Brain MRI 12/23/24- No acute intracranial abnormality noted.
CT 12/01/24- Vascular: Pulmonary emboli are seen within the segmental branches of the right upper lobe, right middle lobe, and right lower lobe. Pulmonary emboli are also seen within the segmental branches of the left upper lobe, lingular segment,
and left lower l be.
No emboli are seen within the main pulmonary artery on either side.
Echo: 12/01/24- 1. Technically limited study.
2. Ejection fraction is 56% by volumetric assessment.
3. Moderately dilated hypokinetic right ventricle.
4. Trileaflet calcified aortic valve with adequate leaflet excursion.
5. Mild concentric left ventricular hypertrophy.
PFT's:
Reports and relevant images were personally reviewed.
Total time spent on this consultation __50__ minutes which includes review of history, physical exam, medications, laboratory data, personal review of imaging, extensive review of outpatient records, discussion with care team and respiratory therapy.
Subjective Data
-
Date of Service:
Date of Service: January 07, 2025
Chief Complaint: Pulmonary Follow Up
Subjective:
Stable on RA, no new complaints
at bedside
Objective Data
Data Reviewed
Vital Signs / I&O / Oxygen:
Vital Signs
Temp Pulse Resp BP Pulse Ox
98 F 55 17 139/69 95
01/07/25 07:00 01/07/25 07:00 01/07/25 07:00 01/07/25 07:00 01/07/25 08:00
Intake and Output
01/06/25 01/07/25 01/08/25
06:59 06:59 06:59
Intake Total 827 / 827 1080 / 1080
Output Total 875 / 875 2600 / 2600 575 / 575
Balance -48 / -48 -1520 / -1520 -575 / -575
SaO2 95
Physical Exam
General: Respiratory Distress (n), Comfortable, Chills (n) and Sweats (n)
HEENT: Normocephalic and Anicteric
Cardiovascular: S1-S2 and Peripheral Edema (n)
Respiratory: Wheeze (n), Crackles (Bibasilar), Rhonchi (Left middle lung field), Non-Labored Respirations and Stridor (n)
GI: Soft, Non Distended, Non Tender and Normal Bowel Sounds
Neurology: Awake, Alert, Oriented and Tremors (n)
Skin: Warm, Dry, Cyanosis (n) and Jaundice (n)
Labs/Micro/Reports
Lab Data
01/07/25 05:45
01/07/25 05:45
Laboratory Results
01/06/25
15:30
APTT Cancelled
Microbiology
01/04/25 18:35 Blood/Venous Blood Culture - Preliminary
No Growth in 48 hours- Final report to follow
01/04/25 16:20 Blood/Venous Blood Culture - Preliminary
No Growth in 48 hours- Final report to follow
01/05/25 10:28 Nose MRSA Screen - Final
No Methicillin Resistant Staphylococcus aureus isolated.
01/05/25 09:15 Bronch Left Upper Lobe Respiratory Culture - Preliminary
Gram negative bacilli
01/05/25 09:15 Bronch Left Upper Lobe Gram Stain - Preliminary
01/05/25 09:16 Bronch Left Upper Lobe Fungal Culture - Preliminary
Culture in progress.
Positive cultures are reported as soon as detected.
Final report to follow in four to five weeks.
--- NOTE | 2025-01-07 09:45 | PTOTSP ---
Speech Language Pathology
VIDEOFLUOROSCOPIC SWALLOWING EXAMINATION (VSE) completed. Repeat VSE completed this date, as pulmonology questioned whether VSE resulted from 01/05 skewed post lidocaine for bronch earlier that day. Improvement noted this date. Laryngeal
penetration inconsistently noted, at times to level of vocal folds, which cleared with a throat clear/reswallow. No aspiration noted. Etiology of dysphagia unknown. Prognosis for tolerance of diet is good if strategies followed.
Recommend:
(1) Regular solids/thin liquids
(2) Aspiration precautions: throat clear/reswallow approximately every 5-10 bites/sips, slow rate
(3) Meds as tolerated
(4) COMFORT ADVISOR to continue to follow to review VSE results & strategies and consider dysphagia tx
--- NOTE | 2025-01-07 10:52 | W.PN.ID1 ---
Date of Service
Date of Service: January 07, 2025
Today's Communication
awaiting ID of the GNR
Assessment / Plan
Probable Pulmonary Cavitary Abscess
Recent suspected pneumonia
Recent FUO
Unintentional weight loss
- s/p bronchoscopy with aerobic, fungal and afb cultures in progress
- cx: GNR
- pathology in progress
- 01/04 blood cultures x2 in progress, neg
- CRP 260 -> 35, ESR 37 -> 63
- had swallow eval 01/05: medication nonoral and npo
- Continue with Unasyn pending cx data.
- follow clinically
Chief Complaint
-: Pneumonia
Subjective / Review of Systems
afebrile
bp stable
no events overnight
cough ongoing
Vital Signs / Physical Exam
Vital Signs
Vital Signs
Temp Pulse Resp BP Pulse Ox
98 F 55 17 139/69 95
01/07/25 07:00 01/07/25 07:00 01/07/25 07:00 01/07/25 07:00 01/07/25 08:00
Physical Exam
Constitutional: No Acute Distress
Cardiovascular: Regular Rate and S1/S2; Negative Murmur or Rub
Pulmonary: Clear and Symmetric; Negative Wheezes or Rales
Gastrointestinal: Soft, Non Tender, Non Distended and Normal Bowel Sounds
Skin: Warm and Dry; Negative Rash or Jaundice
Objective Data
Lab Data
Lab Results
01/07/25 05:45
01/07/25 05:45
ESR 63 mm/hour (0-20) H 01/06/25 07:26
APTT Cancelled 01/06/25 15:30
Estimated Creat Clear 94 ml/min 01/07/25 05:45
Lactic Acid 1.1 mmol/L (0.7-2.0) 01/04/25 16:20
Total Bilirubin 0.4 mg/dl (0.2-1.3) 01/04/25 16:20
AST 23 U/L (17-59) 01/04/25 16:20
ALT 45 U/L (0-50) 01/04/25 16:20
Alkaline Phosphatase 159 U/L (38-126) H 01/04/25 16:20
C-Reactive Protein 35.30 mg/L (0.0-10.00) H 01/06/25 07:26
Most recent labs reviewed.
Micro Results:
01/05/25 09:15 Respiratory Culture - Preliminary
Bronch Left Upper Lobe Gram negative bacilli
Gram Stain - Preliminary
01/04/25 18:35 Blood Culture - Preliminary
Blood/Venous No Growth in 48 hours- Final report to follow
01/04/25 16:20 Blood Culture - Preliminary
Blood/Venous No Growth in 48 hours- Final report to follow
01/05/25 10:28 MRSA Screen - Final
Nose No Methicillin Resistant Staphylococcus aureus isolated.
01/05/25 09:16 Fungal Culture - Preliminary
Bronch Left Upper Lobe Culture in progress.
Positive cultures are reported as soon as detected.
Final report to follow in four to five weeks.
01/05/25 09:16 Acid Fast Bacilli Smear - Pending
Bronch Left Upper Lobe Acid Fast Bacilli Culture - Pending
--- NOTE | 2025-01-07 11:00 | W.PN.HOSP.TC ---
Today's Communication/Plan
-
Regular diet
Continue antibiotics
Wait for final cultures
PT evaluation
Assessment / Plan
Assessment / Plan
79-year-old male with who was admitted to [facility] 01/04 to 12/25/2024 for fever of unknown origin. He got a PET scan as OP - showed large cavitary thick-walled left upper lobe lesion. Pt was started on an antibiotic course and
sent to the hospital .
PET- In the short interval of 1 month, a large cavitary thick-walled left upper lobe lesion has developed. The posterior margin abuts the major fissure, and appears to extend through the fissure with irregular soft tissue opacity infiltrating the
superior segment of the left lower lobe. Given the rapid development of this finding, this likely represents an aggressive infectious process as opposed to neoplasm.
Other smaller scattered pleural based parenchymal opacities are noted with mild FDG activity, as described, also felt to be infectious or inflammatory in nature.
8mm nodule in the lingula contiguous with the minor fissure with relatively mild FDG accumulation and only slightly increased on delayed imaging. A small neoplasm cannot be entirely excluded.
Mild lymph node activity in the left hilum and adjacent to the left mainstem bronchus, both with less FDG activity on delayed imaging, more suggestive of reactive lymph nodes as opposed to metastases.
Bronchoscopy 01/05/25
Impression:
- Abnormal CT scan of chest
- Left upper lobe mass
- The airway examination was normal.
- Bronchoalveolar lavage was performed.
- Brushings were obtained.
- Normal tracheobronchial tree.
Recommendation:
- Await BAL results.
- Chest X-ray post-procedure.
- Observe patient in endoscopic recovery unit for ongoing care.
MRI of the brain-no acute intracranial abnormality
Echo 12/01/2024-EF 56%. Moderately dilated hypokinetic RV. Mild concentric LVH. Trileaflet aortic valve with adequate leaflet excursion
CVS: S1-S2 normal
Chest: CTA B/L
Abdomen: Soft, NT , Bowel sounds present
Extremities: No edema,
#Left Upper lobe Pulmonary abscess
- IV Unasyn
- s/p [id number]/25
- ID consulted appreciated
- continue IV Unasyn
-Bronchial aspirate with gram-negative rods-identification pending
- Pathology pending
- Per Pulm, OK to resume AC now -Eliquis restarted 09/05/2024 evening
# Dysphagia post bronchoscopy
-MRI of the brain without any stroke
-Currently NPO
-During bronchoscopy patient had laryngeal spasm therefore had to apply more lidocaine per pulmonary w
- Video swallow today-patient is cleared for regular diet
# Anemia of chronic disease
- Hemoglobin stable at 11.9, no active bleeding
- Continue to monitor
#Recent pulmonary embolism
#Right lower extremity DVT
-Restarted Eliquis
#Thrombocytosis likely secondary to infection
#Hypothyroidism -continue levothyroxine.
#Hyperlipidemia -atorvastatin.
#BPH
-Dutasteride, Flomax continued
#Essential hypertension
- Metoprolol continued
#Glaucoma
- Timolol continue
#Full code
D/W at bed side
Discussed with nursing next
Part of this note was created using voice recognition system. Occasional wrong word or��sound alike� substitutions may have inadvertently occurred due to the inherent limitations of voice recognition software. If noted kindly bring it to my
attention for correction.
Anticipated Discharge: Within 24 hours
Subjective/Interval History
-
Date of Service: January 07, 2025
Objective Data
-
Labs:
Laboratory Results
01/07/25
05:45
WBC 7.2
Hgb 11.6 L
Hct 35.0 L
Plt Count 557 H
Sodium 138
Potassium 3.9
Chloride 105
Carbon Dioxide 29
BUN 4 L
Creatinine 0.6 L
Glucose 108 H
Calcium 9.1
Vital Signs:
Vital Signs
Temp Pulse Resp BP Pulse Ox
98 F 55 17 139/69 95
01/07/25 07:00 01/07/25 07:00 01/07/25 07:00 01/07/25 07:00 01/07/25 10:54
I&O
01/06/25 01/07/25 01/08/25
06:59 06:59 06:59
Intake Total 827 / 827 1080 / 1080
Output Total 875 / 875 2600 / 2600 575 / 575
Balance -48 / -48 -1520 / -1520 -575 / -575
[2025-01-07] MEDS: MIRALAX 17 GRAMS PO (12:18)
[2025-01-07] MEDS: COLACE 100 MG PO ×2 (12:18→19:58)
[2025-01-07] MEDS: PROSCAR 5 MG PO (17:56)
[2025-01-07] MEDS: TOPROL XL 25 MG PO (17:56)
[2025-01-07] MEDS: LIPITOR 20 MG PO (21:08)
[2025-01-08 03:21] VITALS: BP 144/73
[2025-01-08] MEDS: UNASYN IV (05:56)
[2025-01-08 06:16] LABS: Hematocrit 36.7 % (39.0-52.0); Hemoglobin 11.9 g/dL (13.0-18.0); Mean Corp Hgb Conc. 32.4 g/dL (33.0-37.0); Mean Corpuscular Volume 81.4 fL (80.0-94.0); Platelet Count 511 10^3/uL (130-400); Red Cell Dist. Width 15.7 % (11.5-14.5)
[2025-01-08 07:00] VITALS: BP 132/72
[2025-01-08] MEDS: FOLVITE 1 MG PO (09:19)
[2025-01-08] MEDS: FLOMAX 0.4 MG PO (09:19)
[2025-01-08] MEDS: VITAMIN B-12 1000 MCG PO (09:19)
[2025-01-08] MEDS: TYLENOL 650 MG PO (09:19)
[2025-01-08] MEDS: COLACE 100 MG PO ×2 (09:19→20:30)
[2025-01-08] MEDS: ELIQUIS 5 MG PO ×2 (09:19→20:31)
[2025-01-08] MEDS: MIRALAX 17 GRAMS PO (09:20)
[2025-01-08] MEDS: TIMOPTIC 0.5% OPHTHALMIC SOLUTION 1 DROP BOTH EYES ×2 (09:20→20:31)
--- NOTE | 2025-01-08 09:30 | W.PN.HOSP.TC ---
Today's Communication/Plan
-
IV Cefepime
Assessment / Plan
Assessment / Plan
79-year-old male with who was admitted to [facility] 01/04 to 12/25/2024 for fever of unknown origin. He got a PET scan as OP - showed large cavitary thick-walled left upper lobe lesion. Pt was started on an antibiotic course and
sent to the hospital .
PET- In the short interval of 1 month, a large cavitary thick-walled left upper lobe lesion has developed. The posterior margin abuts the major fissure, and appears to extend through the fissure with irregular soft tissue opacity infiltrating the
superior segment of the left lower lobe. Given the rapid development of this finding, this likely represents an aggressive infectious process as opposed to neoplasm.
Other smaller scattered pleural based parenchymal opacities are noted with mild FDG activity, as described, also felt to be infectious or inflammatory in nature.
8mm nodule in the lingula contiguous with the minor fissure with relatively mild FDG accumulation and only slightly increased on delayed imaging. A small neoplasm cannot be entirely excluded.
Mild lymph node activity in the left hilum and adjacent to the left mainstem bronchus, both with less FDG activity on delayed imaging, more suggestive of reactive lymph nodes as opposed to metastases.
Bronchoscopy 01/05/25
Impression:
- Abnormal CT scan of chest
- Left upper lobe mass
- The airway examination was normal.
- Bronchoalveolar lavage was performed.
- Brushings were obtained.
- Normal tracheobronchial tree.
Recommendation:
- Await BAL results.
- Chest X-ray post-procedure.
- Observe patient in endoscopic recovery unit for ongoing care.
MRI of the brain-no acute intracranial abnormality
Echo 12/01/2024-EF 56%. Moderately dilated hypokinetic RV. Mild concentric LVH. Trileaflet aortic valve with adequate leaflet excursion
Left Upper lobe Pulmonary abscess with cultures growing Pseudomonas
-s/p IV Unasyn - changed to IV Cefepime today
- s/p [id number]/25
- ID consulted appreciated
- Pathology pending
- Per Pulm, OK to resume AC now -Eliquis restarted 01/06/2025 evening
# Dysphagia post bronchoscopy
-MRI of the brain without any stroke
-During bronchoscopy patient had laryngeal spasm therefore had to apply more lidocaine per pulmonary w
- Video swallow - patient cleared for regular diet
# Anemia of chronic disease
- Hemoglobin stable at 11.9, no active bleeding
- Continue to monitor
#Recent pulmonary embolism
#Right lower extremity DVT
-Restarted Eliquis
#Thrombocytosis likely secondary to infection
#Hypothyroidism -continue levothyroxine.
#Hyperlipidemia -atorvastatin.
#BPH
-Dutasteride, Flomax continued
#Essential hypertension
- Metoprolol continued
#Glaucoma
- Timolol continue
#Full code
D/W at bed side
Discussed with nursing next
Anticipated Discharge: 24 - 48 hours
Subjective/Interval History
-
Date of Service: January 08, 2025
feeling well
no new complaints
Objective Data
-
Labs:
Laboratory Results
01/08/25
06:08
WBC 7.7
Hgb 11.9 L
Hct 36.7 L
Plt Count 511 H
Vital Signs:
Vital Signs
Temp Pulse Resp BP Pulse Ox
97.5 F 50 16 132/72 99
01/08/25 07:00 01/08/25 07:00 01/08/25 07:00 01/08/25 07:00 01/08/25 07:00
I&O
01/07/25 01/08/25 01/09/25
06:59 06:59 06:59
Intake Total 1080 / 1080 990 / 990
Output Total 2600 / 2600 925 / 925
Balance -1520 / -1520 65 / 65
Review of Systems
-
History Source: Patient
All other systems: Reviewed and negative
Physical Exam
-
General: Well Developed and No Apparent Distress
HEENT: Normocephalic, Atraumatic and Moist Mucous Membranes
Respiratory: Clear to Auscultation
Cardiac: Regular Rhythm and S1/S2; Negative Murmur, Rub or Gallop
GI: Soft, Nontender, Nondistended and Normal Bowel Sounds; Negative Organomegaly
Rectal: Deferred by Provider
Musculoskeletal: No Clubbing, No Cyanosis and No Edema
Skin: Negative Rash
Neuro: Nonfocal/Grossly Intact
Data Reviewed
-
Diagnostic Radiology: Report Reviewed by me
Labs: Labs Reviewed by me
[2025-01-08] MEDS: STERILE WATER FOR INJECTION 10 ML IV ×3 (10:59→21:33)
[2025-01-08] MEDS: MAXIPIME 1000 MG IV ×3 (10:59→21:33)
[2025-01-08 11:00] VITALS: BP 108/69
--- NOTE | 2025-01-08 11:09 | W.PN.ID1 ---
Date of Service
Date of Service: January 08, 2025
Today's Communication
Continue antibiotics. Transition to cefepime
Assessment / Plan
Pulmonary Cavitary Abscess
Recent suspected pneumonia
Recent FUO
Unintentional weight loss
- s/p bronchoscopy with aerobic, fungal and afb cultures in progress
- cx: Pseudomonas aeruginosa
- pathology in progress
- 01/04 blood cultures x2 in progress, neg
- CRP 260 -> 35, ESR 37 -> 63
- had swallow eval 01/05: medication nonoral and npo
- Transition antibiotics to cefepime 1 gm IV q.6 hours
- follow clinically
Chief Complaint
-: Pneumonia (With cavity)
Subjective / Review of Systems
Patient seen and examined. Reports breathing comfortable.
Review of Systems: No Fever and No Chills
Vital Signs / Physical Exam
Vital Signs
Vital Signs
Temp Pulse Resp BP Pulse Ox
97.5 F 50 16 132/72 99
01/08/25 07:00 01/08/25 07:00 01/08/25 07:00 01/08/25 07:00 01/08/25 07:00
Physical Exam
Constitutional: No Acute Distress and Cachetic (Mild)
Cardiovascular: Regular Rate and S1/S2
Pulmonary: Clear and Symmetric; Negative Wheezes or Rales
Gastrointestinal: Soft, Non Tender, Non Distended and Normal Bowel Sounds
Skin: Warm and Dry; Negative Rash or Jaundice
Objective Data
Lab Data
Lab Results
01/08/25 06:08
01/07/25 05:45
ESR 63 mm/hour (0-20) H 01/06/25 07:26
APTT Cancelled 01/06/25 15:30
Estimated Creat Clear 94 ml/min 01/07/25 05:45
Lactic Acid 1.1 mmol/L (0.7-2.0) 01/04/25 16:20
Total Bilirubin 0.4 mg/dl (0.2-1.3) 01/04/25 16:20
AST 23 U/L (17-59) 01/04/25 16:20
ALT 45 U/L (0-50) 01/04/25 16:20
Alkaline Phosphatase 159 U/L (38-126) H 01/04/25 16:20
C-Reactive Protein 35.30 mg/L (0.0-10.00) H 01/06/25 07:26
Most recent labs reviewed.
Micro Results:
01/05/25 09:15 Respiratory Culture - Final
Bronch Left Upper Lobe Pseudomonas aeruginosa
Gram Stain - Final
01/05/25 09:16 Acid Fast Bacilli Smear - Preliminary
Bronch Left Upper Lobe Acid Fast Bacilli Culture - Preliminary
01/04/25 18:35 Blood Culture - Preliminary
Blood/Venous No Growth in 72 hours- Final report to follow
01/04/25 16:20 Blood Culture - Preliminary
Blood/Venous No Growth in 72 hours- Final report to follow
01/05/25 10:28 MRSA Screen - Final
Nose No Methicillin Resistant Staphylococcus aureus isolated.
01/05/25 09:16 Fungal Culture - Preliminary
Bronch Left Upper Lobe Culture in progress.
Positive cultures are reported as soon as detected.
Final report to follow in four to five weeks.
Respiratory Culture Final 01/05/2025
Few Pseudomonas aeruginosa
Few Usual Respiratory Millicent
Organism 1 Pseudomonas aeruginosa
1. Pseudomonas aeruginosa
M.I.C. RX
--------- ---
Aztreonam <=4 S
Cefepime <=2 S
Ceftazidime <=1 S
Ciprofloxacin <=0.25 S
Meropenem <=1 S
Piperacillin/Tazobactam <=8 S
Tobramycin <=2 S
--- NOTE | 2025-01-08 11:53 | CM ---
Chart reviewed and patient to return to independent living at [facility] today with spouse, patient has [facility] visiting nurses, referral sent in Care port.
Plan; Home with spouse and [facility] vn
[facility]iting Nurses
--- NOTE | 2025-01-08 13:26 | PTCARENOTE ---
made aware of HR in low 40s, Tele renewed
[2025-01-08 15:00] VITALS: BP 134/73
--- NOTE | 2025-01-08 15:52 | W.PN.PUL3 ---
Today's Communication / Plan
-
Left upper lobe BAL cultures reviewed, which has grown pansensitive Pseudomonas aeruginosa - -> Unasyn changed to cefepime today per ID
Cytopathology brushing via bronchoscopy is still pending
Given that we have a likely culprit for his CT chest findings, no need for additional bronchoscopic intervention
Continue diet as per CRYSTALLOGRAPHER
Weight loss ongoing, dietary consult
PT/OT assessments
Can assess for d/c planning if otherwise stable
Pulmonary service will continue to briefly follow along and outpatient office follow-up will be arranged
Assessment
-
Patient is a 79-year-old male with previous history of hypothyroidism, hypertension, PE on Eliquis sent to ER by Dr. Amaral for abnormal PET scan. He had obtained an outpatient PET/CT on 01/03 for follow-up of lung nodule seen on previous CT scan
12/01/2024. PET demonstrated large cavitary lesion in the left upper lobe suspicious for abscess. He was recently hospitalized at for IV antibiotics and discharged 12/25/2024. He has ongoing fever of unknown origin, associated with 20 pound
weight loss in the last 18 months. Admitted to proceed with diagnostic bronchoscopy.
Left upper lobe cavitary lesion, new compared to CT 12/01 - due to lung abscess from Pseudomonas aeruginosa infection
Weight loss, decreased p.o. intake
Fever
Mild anemia
Thrombocytosis
Suspected aspiration, patient refused VSE
Conditions present prior to admission
Recent admission for IV antibiotics, FUO Adm 12/21-12/25/24
Adm : PE on Eliquis, diagnosed 12/01/24, discharged 12/05/24
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
BPH
Hypothyroidism
Hyperlipidemia
Hx of NM
Colon Polyps
Skin Cancer
Memory changes
Appendix removal 1999
Cataract L/R 2022
Plan
No oxygen was needed on admission, currently saturating >90% on RA
Prior history of lung disease is noted including lung nodules noted on CT 12/01/24 and 11/08/24
No prior records for comparison, he is a lifelong non-smoker
Suspect patient has possible disseminated infection with abscess, he has had cavitary nodules as far back as 11/08/2024 scan in left lower lobe
Now with new large left upper lobe cavitary lesion
He was recently admitted for IV antibiotics but did not resolve his complaints, prior culture data negative - -> unfortunately we did not collect a sputum culture until this current hospitalization (he also was previously treated with antibiotics
that do not cover Pseudomonas, like ceftriaxone + cefdinir on last hospitalization from 12/21 - 12/25, and then Unasyn from 11/30 on the prior hosp.)
Imaging reviewed extensively including prior CXR/CTs
Was evaluated by speech therapy, felt to have some coughing with meals but had initially declined to VSE
Speech saw the patient again on 01/05, and recommend NPO due to silent aspiration with concern for lack of compensatory strategies with thin liquids. Apparently, there was right lingual deviation during oral motor assessment questioning if
dysphagia is neurologically related. Patient did have a brain MRI on 01/05 which showed no acute intracranial abnormality. Could be due to lidocaine use during bronchoscopy procedure
VSE performed on 01/07 and no aspiration noted, and recommended regular solids with thin liquids
Aspiration precautions
Patient is s/p bronchoscopy on 01/[address] Rudolph, with SOHAIL BAL performed, as well as brushing of anterior segment of left upper lobe. BAL has grown pansensitive Pseudomonas aeruginosa - -> ID has been on board and they have changed his Unasyn to
cefepime
Left upper lobe anterior segmental bronchus brushing cytopathology still pending
Given that the SOHAIL BAL is growing GNR, no need for additional diagnostic testing at this time although he may need additional bronchoscopic interventions in the near future depending on his clinical course and remainder of recent bronchoscopic study
results
MRSA swab negative
Remainder of BAL microbiological studies show NGTD (fungus + AFB)
Blood cultures collected on 01/04/2025 show NGTD as well
Trend WBC and monitor temperature curve; of note, he has been afebrile since admission
Prior ECHO results are reviewed indicating normal EF but has RV dysfunction/dilated hypokinetic ventricle - -> eventually will need repeat echo to assess for improvement in RV dysfunction
Prior contrast studies demonstrating large burden of PE - adm 11/2024
Now that patient had his bronchoscopy, eleiquis was resumed
Weight loss noted, decreased PO intake
Dietary consult
Has been seen as outpatient pulmonary in our office, follows with Dr Amaral
Had appt on 01/[address] Amaral, but this is now being rescheduled per the patient
Dr. Otero reviewed plan of care with patient and his , Nilda, to their satisfaction
Discharge planning (PT rec'd home health)
Diagnostic Data
Chest X-Ray:
CT Scan: PET/CT 01/03/25- In the short interval of 1 month, a large cavitary thick-walled left upper lobe lesion has developed. The posterior margin abuts the major fissure, and appears to extend through the fissure with irregular soft tissue
opacity infiltrating the superior segment of the left lower lobe. Given the rapid development of this finding, this likely represents an aggressive infectious process as opposed to neoplasm.
Other smaller scattered pleural based parenchymal opacities are noted with mild FDG activity, as described, also felt to be infectious or inflammatory in nature.
8mm nodule in the lingula contiguous with the minor fissure with relatively mild FDG accumulation and only slightly increased on delayed imaging. A small neoplasm cannot be entirely excluded.
Mild lymph node activity in the left hilum and adjacent to the left mainstem bronchus, both with less FDG activity on delayed imaging, more suggestive of reactive lymph nodes as opposed to metastases.
Brain MRI 12/23/24- No acute intracranial abnormality noted.
CT 12/01/24- Vascular: Pulmonary emboli are seen within the segmental branches of the right upper lobe, right middle lobe, and right lower lobe. Pulmonary emboli are also seen within the segmental branches of the left upper lobe, lingular segment,
and left lower l be.
No emboli are seen within the main pulmonary artery on either side.
Echo: 12/01/24- 1. Technically limited study.
2. Ejection fraction is 56% by volumetric assessment.
3. Moderately dilated hypokinetic right ventricle.
4. Trileaflet calcified aortic valve with adequate leaflet excursion.
5. Mild concentric left ventricular hypertrophy.
PFT's:
Reports and relevant images were personally reviewed.
Total time spent on this consultation __41__ minutes which includes review of history, physical exam, medications, laboratory data, personal review of imaging, extensive review of outpatient records, discussion with care team and respiratory therapy.
Subjective Data
-
Date of Service:
Date of Service: January 08, 2025
Chief Complaint: Pulmonary Follow Up
Subjective:
Patient seen today in afternoon (late note entry). Currently on room air breathing comfortably. Able to walk around the room without shortness of breath. Currently denies chest pain, THOMPSON, nausea, fevers or chills.
Review of Systems
General: Other (Negative unless mentioned above)
Objective Data
Data Reviewed
Vital Signs / I&O / Oxygen:
Vital Signs
Temp Pulse Resp BP Pulse Ox
97.5 F 50 16 132/72 99
01/08/25 07:00 01/08/25 07:00 01/08/25 07:00 01/08/25 07:00 01/08/25 07:00
Intake and Output
01/07/25 01/08/25 01/09/25
06:59 06:59 06:59
Intake Total 1080 / 1080 990 / 990
Output Total 2600 / 2600 925 / 925
Balance -1520 / -1520 65 / 65
SaO2 99
Nasal Cannula flow liters per 99
minute
Physical Exam
General: Respiratory Distress (n), Comfortable, Chills (n) and Sweats (n)
HEENT: Normocephalic and Anicteric
Cardiovascular: S1-S2 and Peripheral Edema (n)
Respiratory: Wheeze (n), Crackles (Bibasilar (R >L)), Rhonchi (n), Non-Labored Respirations and Stridor (n)
GI: Soft, Non Distended, Non Tender and Normal Bowel Sounds
Neurology: Awake, Alert, Oriented and Tremors (n)
Skin: Warm, Dry, Cyanosis (n) and Jaundice (n)
Labs/Micro/Reports
Lab Data
01/08/25 06:08
01/07/25 05:45
Microbiology
01/05/25 09:15 Bronch Left Upper Lobe Respiratory Culture - Final
Pseudomonas aeruginosa
01/05/25 09:15 Bronch Left Upper Lobe Gram Stain - Final
01/05/25 09:16 Bronch Left Upper Lobe Acid Fast Bacilli Smear - Preliminary
01/05/25 09:16 Bronch Left Upper Lobe Acid Fast Bacilli Culture - Preliminary
01/04/25 18:35 Blood/Venous Blood Culture - Preliminary
No Growth in 72 hours- Final report to follow
01/04/25 16:20 Blood/Venous Blood Culture - Preliminary
No Growth in 72 hours- Final report to follow
01/05/25 10:28 Nose MRSA Screen - Final
No Methicillin Resistant Staphylococcus aureus isolated.
01/05/25 09:16 Bronch Left Upper Lobe Fungal Culture - Preliminary
Culture in progress.
Positive cultures are reported as soon as detected.
Final report to follow in four to five weeks.
[2025-01-08] MEDS: TOPROL XL PO (16:12)
[2025-01-08] MEDS: PROSCAR 5 MG PO (16:12)
[2025-01-08] MEDS: LIPITOR 20 MG PO (21:33)
[2025-01-08 22:20] VITALS: BP 130/69
[2025-01-08 23:00] VITALS: BP 164/85
[2025-01-09] VITALS (7 sets, daily range): BP systolic 108–156; BP diastolic 67–79
[2025-01-09] MEDS: STERILE WATER FOR INJECTION 10 ML IV ×4 (03:18→21:20)
[2025-01-09] MEDS: MAXIPIME 1000 MG IV ×4 (03:19→21:20)
[2025-01-09] MEDS: SYNTHROID 50 MCG PO (05:48)
[2025-01-09] MEDS: FLOMAX 0.4 MG PO (08:40)
[2025-01-09] MEDS: FOLVITE 1 MG PO (08:40)
[2025-01-09] MEDS: TIMOPTIC 0.5% OPHTHALMIC SOLUTION 1 DROP BOTH EYES ×2 (08:40→19:18)
[2025-01-09] MEDS: ELIQUIS 5 MG PO ×2 (08:40→19:18)
[2025-01-09] MEDS: COLACE 100 MG PO (08:40)
[2025-01-09] MEDS: TYLENOL 650 MG PO (08:40)
[2025-01-09] MEDS: VITAMIN B-12 1000 MCG PO (08:40)
[2025-01-09] MEDS: MIRALAX 17 GRAMS PO (08:41)
--- NOTE | 2025-01-09 09:56 | W.PN.HOSP.TC ---
Today's Communication/Plan
-
IV Cefepime
Assessment / Plan
Assessment / Plan
Mr. Abdiel Stephens is a 79 yo man with hx PE, HLD, BPH, essential HTN, hypothyroidism, recent admission 12/21-12/25/24 for fever unknown origin s/p antibiotic course sent to the hospital for abnormal outpatient PET. PET scan showed large cavitary
thick-walled left upper lobe lesion.' He is s/p bronchoscopy with cultures growing Pseudomonas.
PET- In the short interval of 1 month, a large cavitary thick-walled left upper lobe lesion has developed. The posterior margin abuts the major fissure, and appears to extend through the fissure with irregular soft tissue opacity infiltrating the
superior segment of the left lower lobe. Given the rapid development of this finding, this likely represents an aggressive infectious process as opposed to neoplasm.
Other smaller scattered pleural based parenchymal opacities are noted with mild FDG activity, as described, also felt to be infectious or inflammatory in nature.
8mm nodule in the lingula contiguous with the minor fissure with relatively mild FDG accumulation and only slightly increased on delayed imaging. A small neoplasm cannot be entirely excluded.
Mild lymph node activity in the left hilum and adjacent to the left mainstem bronchus, both with less FDG activity on delayed imaging, more suggestive of reactive lymph nodes as opposed to metastases.
Bronchoscopy 01/05/25
Impression:
- Abnormal CT scan of chest
- Left upper lobe mass
- The airway examination was normal.
- Bronchoalveolar lavage was performed.
- Brushings were obtained.
- Normal tracheobronchial tree.
Recommendation:
- Await BAL results.
- Chest X-ray post-procedure.
- Observe patient in endoscopic recovery unit for ongoing care.
MRI of the brain-no acute intracranial abnormality
Echo 12/01/2024-EF 56%. Moderately dilated hypokinetic RV. Mild concentric LVH. Trileaflet aortic valve with adequate leaflet excursion
Left Upper lobe Pulmonary abscess with cultures growing Pseudomonas
- s/p [id number]/26/25 with bronchoalveolar lavage and brushings obtained
- s/p IV Unasyn - changed to IV Cefepime on 01/08 after cultures results grew Pseudomonas
- ID consulted appreciated
- Pathology pending
- Per Pulm, OK to resume AC now -Eliquis restarted 01/06/2025 evening
- discussed with ID, continue to give IV treatment through today - follow up ID recs on continued abx course tomorrow
# Dysphagia post bronchoscopy
-MRI of the brain without any stroke
-During bronchoscopy patient had laryngeal spasm therefore had to apply more lidocaine per pulmonary w
- Video swallow - patient cleared for regular diet and tolerating
# Anemia of chronic disease
- Hemoglobin stable at 11.9, no active bleeding
- Continue to monitor
#Recent pulmonary embolism
#Right lower extremity DVT
-Restarted Eliquis
#Thrombocytosis likely secondary to infection
#Hypothyroidism -continue levothyroxine.
#Hyperlipidemia -atorvastatin.
#BPH
-Dutasteride, Flomax continued
#Essential hypertension
- Metoprolol continued
#Glaucoma
- Timolol continue
#Full code
D/W at bed side
Discussed with nursing next
Anticipated Discharge: 24 - 48 hours
Subjective/Interval History
-
Date of Service: January 09, 2025
no new complaints
feeling well
eating and drinking OK
Objective Data
-
Vital Signs:
Vital Signs
Temp Pulse Resp BP Pulse Ox
97.5 F 56 17 156/77 99
01/09/25 07:00 01/09/25 07:00 01/09/25 07:00 01/09/25 07:00 01/09/25 07:00
I&O
01/08/25 01/09/25 01/10/25
06:59 06:59 06:59
Intake Total 990 / 990 960 / 960
Output Total 925 / 925 500 / 500
Balance 65 / 65 460 / 460
Review of Systems
-
History Source: Patient
All other systems: Reviewed and negative
Physical Exam
-
General: Well Developed and No Apparent Distress
HEENT: Normocephalic, Atraumatic and Moist Mucous Membranes
Respiratory: Negative Wheezes
Cardiac: Regular Rhythm and S1/S2; Negative Murmur, Rub or Gallop
GI: Soft, Nontender, Nondistended and Normal Bowel Sounds; Negative Organomegaly
Rectal: Deferred by Provider
Musculoskeletal: No Clubbing, No Cyanosis and No Edema
Skin: Negative Rash
Neuro: Nonfocal/Grossly Intact
Psych: Calm
Data Reviewed
-
Diagnostic Radiology: Report Reviewed by me
Labs: Labs Reviewed by me
--- NOTE | 2025-01-09 10:51 | W.PN.ID1 ---
Date of Service
Date of Service: January 09, 2025
Today's Communication
Continue cefepime
Assessment / Plan
Cavitary pulmonary infection with recovery of Pseudomonas.
Recent suspected pneumonia
Recent FUO
Unintentional weight loss
- s/p bronchoscopy with aerobic, fungal and afb cultures in progress
- cx: Pseudomonas aeruginosa
- pathology in progress
- 01/04 blood cultures x2 in progress, neg
- CRP 260 -> 35, ESR 37 -> 63
- had swallow eval 01/05: medication nonoral and npo
- Continue cefepime 1 gm IV q.6 hours. Given extent of disease, may require prolonged course of antibiotic therapy.
- follow clinically
����������������������������������������������������������
Chief Complaint
-: Pneumonia (With cavity)
Subjective / Review of Systems
Review of Systems: No Fever, No Chills, Cough, No Sputum Production, No Chest Pain and No Abdominal Pain
Vital Signs / Physical Exam
Vital Signs
Vital Signs
Temp Pulse Resp BP Pulse Ox
97.5 F 56 17 156/77 99
01/09/25 07:00 01/09/25 07:00 01/09/25 07:00 01/09/25 07:00 01/09/25 07:00
Physical Exam
Constitutional: No Acute Distress and Cachetic (Mild)
Cardiovascular: Regular Rate and S1/S2
Pulmonary: Coarse and Non Labored
Gastrointestinal: Soft, Non Tender, Non Distended and Normal Bowel Sounds
Skin: Warm and Dry; Negative Rash or Jaundice
Neurological: Awake, Alert and Oriented
Objective Data
Lab Data
Lab Results
01/08/25 06:08
01/07/25 05:45
ESR 63 mm/hour (0-20) H 01/06/25 07:26
APTT Cancelled 01/06/25 15:30
Estimated Creat Clear 94 ml/min 01/07/25 05:45
Lactic Acid 1.1 mmol/L (0.7-2.0) 01/04/25 16:20
Total Bilirubin 0.4 mg/dl (0.2-1.3) 01/04/25 16:20
AST 23 U/L (17-59) 01/04/25 16:20
ALT 45 U/L (0-50) 01/04/25 16:20
Alkaline Phosphatase 159 U/L (38-126) H 01/04/25 16:20
C-Reactive Protein 35.30 mg/L (0.0-10.00) H 01/06/25 07:26
Most recent labs reviewed.
Micro Results:
01/04/25 18:35 Blood Culture - Preliminary
Blood/Venous No Growth in 4 days- Final report to follow
01/04/25 16:20 Blood Culture - Preliminary
Blood/Venous No Growth in 4 days- Final report to follow
01/05/25 09:15 Respiratory Culture - Final
Bronch Left Upper Lobe Pseudomonas aeruginosa
Gram Stain - Final
01/05/25 09:16 Acid Fast Bacilli Smear - NEGATIVE
Bronch Left Upper Lobe Acid Fast Bacilli Culture - Preliminary
01/05/25 10:28 MRSA Screen - Final
Nose No Methicillin Resistant Staphylococcus aureus isolated.
01/05/25 09:16 Fungal Culture - Preliminary
Bronch Left Upper Lobe Culture in progress.
Positive cultures are reported as soon as detected.
Final report to follow in four to five weeks.
Respiratory Culture Final 01/05/2025
Few Pseudomonas aeruginosa
Few Usual Respiratory Millicent
Organism 1 Pseudomonas aeruginosa
1. Pseudomonas aeruginosa
M.I.C. RX
--------- ---
Aztreonam <=4 S
Cefepime <=2 S
Ceftazidime <=1 S
Ciprofloxacin <=0.25 S
Meropenem <=1 S
Piperacillin/Tazobactam <=8 S
Tobramycin <=2 S
Imaging:
12/30/2024 CT PET: In the short interval of 1 month, a large cavitary thick-walled left upper lobe lesion has developed. The posterior margin abuts the major fissure, and appears to extend through the fissure with irregular soft tissue opacity
infiltrating the superior segment of the left lower lobe. Given the rapid development of this finding, this likely represents an aggressive infectious process as opposed to neoplasm.
--- NOTE | 2025-01-09 13:00 | W.PN.UPDATE ---
Update Note
Progress Note Update
Principal diagnosis : Left upper lobe pulmonary abscess
Hospital Course :
Mr. Abdiel Stephens is a 79 yo man with hx PE, HLD, BPH, essential HTN, hypothyroidism, recent admission 12/21-12/25/24 for fever unknown origin s/p antibiotic course sent to the hospital for abnormal outpatient PET. PET scan showed large cavitary
thick-walled left upper lobe lesion.
Triage vitals stable. Labs without leukocytosis. Patient was admitted to medicine with Pulmonary and ID consulting for left upper lobe lung abscess. He was started on IV Unasyn. He is s/p bronch on HD 1 where cultures were collected. Culture
grew Pseudomonas and antibiotics were changed to IV Cefepime on 01/08/25.
Of note, patient had a swallow evaluation post bronchoscopy to evaluate for risk factors to develop an abscess. His first swallow eval showed severe dysphagia but this was due to prolonged effects of lidocaine/anesthesia with bronchoscopy. VSE
repeated 2 days later and was within normal limits. He is tolerating a regular diet.
Important imaging findings :
PET
IMPRESSION:
In the short interval of 1 month, a large cavitary thick-walled left upper lobe lesion has developed. The posterior margin abuts the major fissure, and appears to extend through the fissure with irregular soft tissue opacity infiltrating the
superior segment of the left lower lobe. Given the rapid development of this finding, this likely represents an aggressive infectious process as opposed to neoplasm.
Other smaller scattered pleural based parenchymal opacities are noted with mild FDG activity, as described, also felt to be infectious or inflammatory in nature.
8mm nodule in the lingula contiguous with the minor fissure with relatively mild FDG accumulation and only slightly increased on delayed imaging. A small neoplasm cannot be entirely excluded.
Mild lymph node activity in the left hilum and adjacent to the left mainstem bronchus, both with less FDG activity on delayed imaging, more suggestive of reactive lymph nodes as opposed to metastases.
Head CT 01/05
IMPRESSION:
No acute intracranial abnormality.
Brain MRI 01/05
IMPRESSION:
No acute intracranial abnormality noted.
Procedure findings :
Bronchoscopy 01/05/25
Impression:
- Abnormal CT scan of chest
- Left upper lobe mass
- The airway examination was normal.
- Bronchoalveolar lavage was performed.
- Brushings were obtained.
- Normal tracheobronchial tree.
Recommendation:
- Await BAL results.
- Chest X-ray post-procedure.
- Observe patient in endoscopic recovery unit for ongoing care.
--- NOTE | 2025-01-09 15:42 | W.PN.PUL3 ---
Today's Communication / Plan
-
Left upper lobe BAL cultures reviewed, which has grown pansensitive Pseudomonas aeruginosa - -> Unasyn changed to cefepime on 01/08 per ID
Left upper lobe anterior segmental bronchus brushing cytopathology is still pending
Given that we have a culprit for his CT chest findings, no need for additional bronchoscopic intervention
Continue diet as per [facility]
Weight loss ongoing, dietary consult
PT/OT assessments
Can assess for d/c planning if otherwise stable
Pulmonary service will continue to briefly follow along and outpatient office follow-up will be arranged
Assessment
-
Patient is a 79-year-old male with previous history of hypothyroidism, hypertension, PE on Eliquis sent to ER by Dr. Amaral for abnormal PET scan. He had obtained an outpatient PET/CT on 01/03 for follow-up of lung nodule seen on previous CT scan
12/01/2024. PET demonstrated large cavitary lesion in the left upper lobe suspicious for abscess. He was recently hospitalized at for IV antibiotics and discharged 12/25/2024. He has ongoing fever of unknown origin, associated with 20 pound
weight loss in the last 18 months. Admitted to proceed with diagnostic bronchoscopy.
Left upper lobe cavitary lesion, new compared to CT 12/01 - due to lung abscess from Pseudomonas aeruginosa infection
Weight loss, decreased p.o. intake
Fever
Mild anemia
Thrombocytosis
Suspected aspiration, patient refused VSE
Conditions present prior to admission
Recent admission for IV antibiotics, FUO Adm 12/21-12/25/24
Adm : PE on Eliquis, diagnosed 12/01/24, discharged 12/05/24
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
BPH
Hypothyroidism
Hyperlipidemia
Hx of ND
Colon Polyps
Skin Cancer
Memory changes
Appendix removal 1999
Cataract L/R 2022
Plan
No oxygen was needed on admission, currently saturating >90% on RA
Prior history of lung disease is noted including lung nodules noted on CT 12/01/24 and 11/08/24
No prior records for comparison, he is a lifelong non-smoker
Suspect patient has possible disseminated infection with abscess, he has had cavitary nodules as far back as 11/08/2024 scan in left lower lobe
Now with new large left upper lobe cavitary lesion
He was recently admitted for IV antibiotics but did not resolve his complaints, prior culture data negative - -> unfortunately we did not collect a sputum culture until this current hospitalization (he also was previously treated with antibiotics
that do not cover Pseudomonas, like ceftriaxone + cefdinir on last hospitalization from 12/21 - 12/25, and then Unasyn from 11/30 on the prior hosp.)
Imaging reviewed extensively including prior CXR/CTs
Was evaluated by speech therapy, felt to have some coughing with meals but had initially declined to VSE
Speech saw the patient again on 01/05, and recommend NPO due to silent aspiration with concern for lack of compensatory strategies with thin liquids. Apparently, there was right lingual deviation during oral motor assessment questioning if
dysphagia is neurologically related. Patient did have a brain MRI on 01/05 which showed no acute intracranial abnormality. Could be due to lidocaine use during bronchoscopy procedure
VSE performed on 01/07 and no aspiration noted, and recommended regular solids with thin liquids
Aspiration precautions
Patient is s/p bronchoscopy on 01/[address] Rudolph, with SOHAIL BAL performed, as well as brushing of anterior segment of left upper lobe. BAL has grown wise-sensitive Pseudomonas aeruginosa - -> ID has been on board and they changed his Unasyn to
cefepime
Left upper lobe anterior segmental bronchus brushing cytopathology still pending
Given that Pseudomonas aeruginosa has been recovered from his SOHAIL BAL, no need for additional diagnostic testing at this time (would offer additional diagnostic testing like TBBx/TBNA if additional tissue diagnosis requested)
MRSA swab negative
Remainder of BAL microbiological studies show NGTD (fungus + AFB)
Blood cultures collected on 01/04/2025 show NGTD as well
Trend WBC and monitor temperature curve; of note, he has been afebrile since admission
Prior ECHO results are reviewed indicating normal EF but has RV dysfunction/dilated hypokinetic ventricle - -> eventually will need repeat echo to assess for improvement in RV dysfunction
Prior contrast studies demonstrating large burden of PE - adm 11/2024
Now that patient had his bronchoscopy, eliquis was resumed
Weight loss noted, decreased PO intake
Dietary consult
Follows with our pulmonary office via Dr. Amaral
Had appt on 01/[address] Amaral, but this is now being rescheduled per the patient
Dr. Otero reviewed plan of care with patient and his , Nilda, to their satisfaction
Discharge planning (PT rec'd home health)
Pulmonary service will continue to briefly follow along.
Diagnostic Data
Chest X-Ray:
CT Scan: PET/CT 01/03/25- In the short interval of 1 month, a large cavitary thick-walled left upper lobe lesion has developed. The posterior margin abuts the major fissure, and appears to extend through the fissure with irregular soft tissue
opacity infiltrating the superior segment of the left lower lobe. Given the rapid development of this finding, this likely represents an aggressive infectious process as opposed to neoplasm.
Other smaller scattered pleural based parenchymal opacities are noted with mild FDG activity, as described, also felt to be infectious or inflammatory in nature.
8mm nodule in the lingula contiguous with the minor fissure with relatively mild FDG accumulation and only slightly increased on delayed imaging. A small neoplasm cannot be entirely excluded.
Mild lymph node activity in the left hilum and adjacent to the left mainstem bronchus, both with less FDG activity on delayed imaging, more suggestive of reactive lymph nodes as opposed to metastases.
Brain MRI 12/23/24- No acute intracranial abnormality noted.
CT 12/01/24- Vascular: Pulmonary emboli are seen within the segmental branches of the right upper lobe, right middle lobe, and right lower lobe. Pulmonary emboli are also seen within the segmental branches of the left upper lobe, lingular segment,
and left lower l be.
No emboli are seen within the main pulmonary artery on either side.
Echo: 12/01/24- 1. Technically limited study.
2. Ejection fraction is 56% by volumetric assessment.
3. Moderately dilated hypokinetic right ventricle.
4. Trileaflet calcified aortic valve with adequate leaflet excursion.
5. Mild concentric left ventricular hypertrophy.
PFT's:
Reports and relevant images were personally reviewed.
Total time spent on this consultation __37__ minutes which includes review of history, physical exam, medications, laboratory data, personal review of imaging, extensive review of outpatient records, discussion with care team and respiratory therapy.
Subjective Data
-
Date of Service:
Date of Service: January 09, 2025
Chief Complaint: Pulmonary Follow Up
Subjective:
Patient was seen and evaluated this afternoon (late note entry). Patient doing well, breathing comfortably on room air. Afebrile overnight. Currently denies chest pain, THOMPSON, fevers or chills.
Review of Systems
General: Other (Negative unless mentioned above)
Objective Data
Data Reviewed
Vital Signs / I&O / Oxygen:
Vital Signs
Temp Pulse Resp BP Pulse Ox
97.5 F 56 17 156/77 99
01/09/25 07:00 01/09/25 07:00 01/09/25 07:00 01/09/25 07:00 01/09/25 07:00
Intake and Output
01/08/25 01/09/25 01/10/25
06:59 06:59 06:59
Intake Total 990 / 990 960 / 960
Output Total 925 / 925 500 / 500
Balance 65 / 65 460 / 460
SaO2 99
Nasal Cannula flow liters per 99
minute
Physical Exam
General: Respiratory Distress (n), Comfortable, Chills (n) and Sweats (n)
HEENT: Normocephalic and Anicteric
Cardiovascular: S1-S2 and Peripheral Edema (n)
Respiratory: Wheeze (n), Crackles (Bibasilar (R >L)), Rhonchi (n), Non-Labored Respirations and Stridor (n)
GI: Soft, Non Distended, Non Tender and Normal Bowel Sounds
Neurology: Awake, Alert, Oriented and Tremors (n)
Skin: Warm, Dry, Cyanosis (n) and Jaundice (n)
Labs/Micro/Reports
Lab Data
01/08/25 06:08
01/07/25 05:45
Microbiology
01/04/25 18:35 Blood/Venous Blood Culture - Preliminary
No Growth in 4 days- Final report to follow
01/04/25 16:20 Blood/Venous Blood Culture - Preliminary
No Growth in 4 days- Final report to follow
01/05/25 09:15 Bronch Left Upper Lobe Respiratory Culture - Final
Pseudomonas aeruginosa
01/05/25 09:15 Bronch Left Upper Lobe Gram Stain - Final
01/05/25 09:16 Bronch Left Upper Lobe Acid Fast Bacilli Smear - Preliminary
01/05/25 09:16 Bronch Left Upper Lobe Acid Fast Bacilli Culture - Preliminary
01/05/25 10:28 Nose MRSA Screen - Final
No Methicillin Resistant Staphylococcus aureus isolated.
[2025-01-09] MEDS: PROSCAR 5 MG PO (17:04)
[2025-01-09] MEDS: TOPROL XL PO (17:09)
--- NOTE | 2025-01-09 18:25 | PTCARENOTE ---
PT ambulated in hallways several times today with . steady with a stand by assist and his sneakers on
[2025-01-09] MEDS: COLACE PO (19:18)
[2025-01-09] MEDS: LIPITOR 20 MG PO (21:20)
[2025-01-10 03:00] VITALS: BP 146/80
[2025-01-10] MEDS: STERILE WATER FOR INJECTION 10 ML IV ×2 (03:50→09:52)
[2025-01-10] MEDS: MAXIPIME 1000 MG IV ×2 (03:50→09:53)
[2025-01-10] MEDS: SYNTHROID 50 MCG PO (05:10)
--- NOTE | 2025-01-10 06:33 | W.PN.HOSP.TC ---
Addendum entered and electronically signed by Marvin Suarez MD 01/10/25 15:15:
79-year-old male with who was admitted to [facility] 01/04 to 12/25/2024 for fever of unknown origin. He got a PET scan as OP - showed large cavitary thick-walled left upper lobe lesion. Pt was started on an antibiotic course and
sent to the hospital .
PET- In the short interval of 1 month, a large cavitary thick-walled left upper lobe lesion has developed. The posterior margin abuts the major fissure, and appears to extend through the fissure with irregular soft tissue opacity infiltrating the
superior segment of the left lower lobe. Given the rapid development of this finding, this likely represents an aggressive infectious process as opposed to neoplasm.
Other smaller scattered pleural based parenchymal opacities are noted with mild FDG activity, as described, also felt to be infectious or inflammatory in nature.
8mm nodule in the lingula contiguous with the minor fissure with relatively mild FDG accumulation and only slightly increased on delayed imaging. A small neoplasm cannot be entirely excluded.
Mild lymph node activity in the left hilum and adjacent to the left mainstem bronchus, both with less FDG activity on delayed imaging, more suggestive of reactive lymph nodes as opposed to metastases.
Bronchoscopy 01/05/25
Impression:
- Abnormal CT scan of chest
- Left upper lobe mass
- The airway examination was normal.
- Bronchoalveolar lavage was performed.
- Brushings were obtained.
- Normal tracheobronchial tree.
Recommendation:
- Await BAL results.
- Chest X-ray post-procedure.
- Observe patient in endoscopic recovery unit for ongoing care.
MRI of the brain-no acute intracranial abnormality
Echo 12/01/2024-EF 56%. Moderately dilated hypokinetic RV. Mild concentric LVH. Trileaflet aortic valve with adequate leaflet excursion
CVS: S1-S2 normal
Chest: CTA B/L
Abdomen: Soft, NT , Bowel sounds present
Extremities: No edema,
#Left Upper lobe Pulmonary abscess
- s/p [id number]/26/25
- ID consulted appreciated
- Antibiotics changed to ciprofloxacin
-Bronchial aspirate with gram-negative rods-identification pending
- Pathology negative for malignant cells
- AC -Eliquis restarted 09/05/2024 evening
- EKG tomorrow
# Dysphagia post bronchoscopy
-MRI of the brain without any stroke
-During bronchoscopy patient had laryngeal spasm therefore had to apply more lidocaine per pulmonary
- Video swallow -patient is cleared for regular diet
# Anemia of chronic disease
#Recent pulmonary embolism
#Right lower extremity DVT
-Restarted Eliquis
#Thrombocytosis likely secondary to infection
#Hypothyroidism -continue levothyroxine.
#Hyperlipidemia -atorvastatin.
#BPH-Dutasteride, Flomax continued
#Essential hypertension- Metoprolol continued
#Glaucoma- Timolol continue
#Full code
D/W at bed side
Part of this note was created using voice recognition system. Occasional wrong word or��sound alike� substitutions may have inadvertently occurred due to the inherent limitations of voice recognition software. If noted kindly bring it to my
attention for correction.
Original Note:
Today's Communication/Plan
-
Switch cefepime to Ciprofloxacin
Check ecg QTC
Assessment / Plan
Assessment / Plan
Mr. Abdiel Stephens is a 79 yo man with hx PE, HLD, BPH, essential HTN, hypothyroidism, recent admission 12/21-12/25/24 for fever unknown origin s/p antibiotic course sent to the hospital for abnormal outpatient PET. PET scan showed large cavitary
thick-walled left upper lobe lesion.' He is s/p bronchoscopy with cultures growing Pseudomonas.
PET 01/03/25
-In the short interval of 1 month, a large cavitary thick-walled left upper lobe lesion has developed. The posterior margin abuts the major fissure, and appears to extend through the fissure with irregular soft tissue opacity infiltrating the
superior segment of the left lower lobe. Given the rapid development of this finding, this likely represents an aggressive infectious process as opposed to neoplasm.
-Other smaller scattered pleural based parenchymal opacities are noted with mild FDG activity, as described, also felt to be infectious or inflammatory in nature.
-8mm nodule in the lingula contiguous with the minor fissure with relatively mild FDG accumulation and only slightly increased on delayed imaging. A small neoplasm cannot be entirely excluded.
-Mild lymph node activity in the left hilum and adjacent to the left mainstem bronchus, both with less FDG activity on delayed imaging, more suggestive of reactive lymph nodes as opposed to metastases.
Bronchoscopy 01/05/25
Impression:
- Abnormal CT scan of chest
- Left upper lobe mass
- The airway examination was normal.
- Bronchoalveolar lavage was performed.
- Brushings were obtained.
- Normal tracheobronchial tree.
Recommendation:
- Await BAL results.
- Chest X-ray post-procedure.
- Observe patient in endoscopic recovery unit for ongoing care.
MRI of the brain 01/05/25
-no acute intracranial abnormality
Echo 12/01/2024
-EF 56%. Moderately dilated hypokinetic RV. Mild concentric LVH. Trileaflet aortic valve with adequate leaflet excursion
Left Upper lobe Pulmonary abscess with cultures growing Pseudomonas
- s/p [id number]/26/25 with bronchoalveolar lavage and brushings obtained
- s/p IV Unasyn - changed to IV Cefepime on 01/08 after cultures results grew Pseudomonas -->switch to Ciprofloxacin 750mg PO BID, stop cefepime plan 6 week course 02/28/2025
- Recheck QTc
- ID consulted appreciated
- Pathology pending
- Per Pulm, OK to resume AC now -Eliquis restarted 01/06/2025 evening
- PT- home health
- Pulm- outpatient f/u will be arranged
# Dysphagia post bronchoscopy
-MRI of the brain without any stroke
-During bronchoscopy patient had laryngeal spasm therefore had to apply more lidocaine per pulmonary w
- Video swallow - patient cleared for regular diet and tolerating
# Anemia of chronic disease
- Hemoglobin stable at 11.9, no active bleeding
- Continue to monitor
#Recent pulmonary embolism
#Right lower extremity DVT
-Restarted Eliquis
#Thrombocytosis likely secondary to infection
-Platelet 511
#Hypothyroidism -continue levothyroxine.
#Hyperlipidemia -atorvastatin.
#BPH
-Dutasteride, Flomax continued
#Essential hypertension
- Metoprolol continued
#Glaucoma
- Timolol continue
Full code
DVT prophylaxis: Eliquis
Anticipated Discharge: Today
Subjective/Interval History
-
Date of Service: January 10, 2025
He is comfortable lying in the bed. No complaints is at the bedside. Denies SOB, CP, Palpitations. No chills.
Objective Data
-
Vital Signs:
Vital Signs
Temp Pulse Resp BP Pulse Ox
98.1 F 59 18 146/80 98
01/10/25 03:00 01/10/25 03:00 01/10/25 03:00 01/10/25 03:00 01/10/25 03:00
I&O
01/08/25 01/09/25 01/10/25
06:59 06:59 06:59
Intake Total 990 / 990 960 / 960 1080 / 1080
Output Total 925 / 925 500 / 500 700 / 700
Balance 65 / 65 460 / 460 380 / 380
Review of Systems
-
History Source: Patient
Constitutional: Reports No Symptoms
EENT: Reports No Symptoms Reported
Respiratory: Reports No Symptoms
Cardiac: Reports No Symptoms
Abdomen/GI: Reports No Symptoms
Breast: Reports No Symptoms
Genitourinary: Reports No Symptoms
Musculoskeletal: Reports No Symptoms
Skin: Reports No Symptoms
Neuro: Reports No Symptoms
Endocrine: Reports No Symptoms
Hematologic / Lymphatic: Reports No Symptoms
Allergy / Immunology: Reports No Symptoms
Physical Exam
-
General: Well Developed, Well Nourished, No Apparent Distress, Comfortable and Conversant
HEENT: Normocephalic and Atraumatic
Respiratory: Clear to Auscultation
Cardiac: Regular Rhythm and S1/S2
Breast: Deferred by me
GI: Soft, Nontender and Nondistended
Rectal: Deferred by Provider
Genito-urinary: Deferred by me
Musculoskeletal: No Clubbing, No Cyanosis and No Edema
Skin: Warm and Dry
Neuro: AO x 3, No Motor Deficits, Nonfocal/Grossly Intact and No Sensory Deficits
Psych: Calm
[2025-01-10 07:00] VITALS: BP 137/74
[2025-01-10] MEDS: ELIQUIS 5 MG PO ×2 (08:34→20:41)
[2025-01-10] MEDS: FLOMAX 0.4 MG PO (08:34)
[2025-01-10] MEDS: MIRALAX 17 GRAMS PO (08:34)
[2025-01-10] MEDS: COLACE 100 MG PO ×2 (08:34→20:41)
[2025-01-10] MEDS: FOLVITE 1 MG PO (08:34)
[2025-01-10] MEDS: VITAMIN B-12 1000 MCG PO (08:34)
[2025-01-10] MEDS: TIMOPTIC 0.5% OPHTHALMIC SOLUTION 1 DROP BOTH EYES ×2 (08:34→20:42)
[2025-01-10 11:00] VITALS: BP 108/61
--- NOTE | 2025-01-10 12:03 | W.PN.ID1 ---
Date of Service
Date of Service: January 10, 2025
Today's Communication
- start ciprofloxacin 750 mg PO BID, stop cefepime - plan 6 week course through 02/29/24
- recheck QTc in the AM or late this afternoon if he is planned for dc today
- recheck 2 view CXR, cbc, cmp, esr, crp early February before follow up appointment - ordered and reviewed with patient
- follow up in ID clinic early february
Assessment / Plan
Cavitary pulmonary infection with recovery of Pseudomonas.
Recent suspected pneumonia
Recent FUO
Unintentional weight loss
- s/p bronchoscopy with aerobic, fungal and afb cultures in progress
- cx: Pseudomonas aeruginosa
- pathology in progress
- 01/04 blood cultures x2 in progress, neg
- CRP 260 -> 35, ESR 37 -> 63
- had repeat swallow eval 01/07: regular solids, thin liquids, meds as tolerated
- start ciprofloxacin 750 mg PO BID, stop cefepime - plan 6 week course through 02/29/24
- recheck QTc in the AM or late this afternoon if he is planned for dc today
- recheck 2 view CXR, cbc, cmp, esr, crp early February before follow up appointment - ordered
- follow up in ID clinic february
����������������������������������������������������������
Chief Complaint
-: Pneumonia (With cavity)
Subjective / Review of Systems
afebrile
bp stable
cough improving
has an appetite
no complaints
Vital Signs / Physical Exam
Vital Signs
Vital Signs
Temp Pulse Resp BP Pulse Ox
97.2 F 52 16 108/61 99
01/10/25 11:00 01/10/25 11:00 01/10/25 11:00 01/10/25 11:00 01/10/25 11:00
Physical Exam
Constitutional: No Acute Distress
Cardiovascular: Regular Rate and S1/S2; Negative Murmur or Rub
Pulmonary: Clear and Symmetric; Negative Wheezes or Rales
Gastrointestinal: Soft, Non Tender, Non Distended and Normal Bowel Sounds
Skin: Warm and Dry; Negative Rash or Jaundice
Objective Data
Lab Data
Lab Results
01/08/25 06:08
01/07/25 05:45
ESR 63 mm/hour (0-20) H 01/06/25 07:26
APTT Cancelled 01/06/25 15:30
Estimated Creat Clear 94 ml/min 01/07/25 05:45
Lactic Acid 1.1 mmol/L (0.7-2.0) 01/04/25 16:20
Total Bilirubin 0.4 mg/dl (0.2-1.3) 01/04/25 16:20
AST 23 U/L (17-59) 01/04/25 16:20
ALT 45 U/L (0-50) 01/04/25 16:20
Alkaline Phosphatase 159 U/L (38-126) H 01/04/25 16:20
C-Reactive Protein 35.30 mg/L (0.0-10.00) H 01/06/25 07:26
Most recent labs reviewed.
Micro Results:
01/04/25 18:35 Blood Culture - Final
Blood/Venous No Growth - Final Report
01/04/25 16:20 Blood Culture - Final
Blood/Venous No Growth - Final Report
01/05/25 09:15 Respiratory Culture - Final
Bronch Left Upper Lobe Pseudomonas aeruginosa
Gram Stain - Final
01/05/25 09:16 Acid Fast Bacilli Smear - Preliminary
Bronch Left Upper Lobe Acid Fast Bacilli Culture - Preliminary
01/05/25 10:28 MRSA Screen - Final
Nose No Methicillin Resistant Staphylococcus aureus isolated.
01/05/25 09:16 Fungal Culture - Preliminary
Bronch Left Upper Lobe Culture in progress.
Positive cultures are reported as soon as detected.
Final report to follow in four to five weeks.
Respiratory Culture Final 01/05/2025
Few Pseudomonas aeruginosa
Few Usual Respiratory Millicent
Organism 1 Pseudomonas aeruginosa
1. Pseudomonas aeruginosa
M.I.C. RX
--------- ---
Aztreonam <=4 S
Cefepime <=2 S
Ceftazidime <=1 S
Ciprofloxacin <=0.25 S
Meropenem <=1 S
Piperacillin/Tazobactam <=8 S
Tobramycin <=2 S
Imaging:
12/30/2024 CT PET: In the short interval of 1 month, a large cavitary thick-walled left upper lobe lesion has developed. The posterior margin abuts the major fissure, and appears to extend through the fissure with irregular soft tissue opacity
infiltrating the superior segment of the left lower lobe. Given the rapid development of this finding, this likely represents an aggressive infectious process as opposed to neoplasm.
[2025-01-10] MEDS: CIPRO 750 MG PO ×2 (13:28→20:41)
--- NOTE | 2025-01-10 13:33 | W.PN.PUL3 ---
Today's Communication / Plan
-
Antibiotics per infectious disease
Outpatient pulmonary follow-up to assure radiographic clearance
Discharge planning
Sign off
Assessment
-
Patient is a 79-year-old male with previous history of hypothyroidism, hypertension, PE on Eliquis sent to ER by Dr. Amaral for abnormal PET scan. He had obtained an outpatient PET/CT on 01/03 for follow-up of lung nodule seen on previous CT scan
12/01/2024. PET demonstrated large cavitary lesion in the left upper lobe suspicious for abscess. He was recently hospitalized at for IV antibiotics and discharged 12/25/2024. He has ongoing fever of unknown origin, associated with 20 pound
weight loss in the last 18 months. Admitted to proceed with diagnostic bronchoscopy.
Left upper lobe cavitary lesion, new compared to CT 12/01 - due to lung abscess from Pseudomonas aeruginosa infection
Weight loss, decreased p.o. intake
Fever
Mild anemia
Thrombocytosis
Suspected aspiration, patient refused VSE
Conditions present prior to admission
Recent admission for IV antibiotics, FUO Adm 12/21-12/25/24
Adm : PE on Eliquis, diagnosed 12/01/24, discharged 12/05/24
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
BPH
Hypothyroidism
Hyperlipidemia
Hx of MT
Colon Polyps
Skin Cancer
Memory changes
Appendix removal 1999
Cataract L/R 2022
Plan
Pulmonary status has improved
Remains on room air
Prior history of lung disease is noted including lung nodules noted on CT 12/01/24 and 11/08/24
No prior records for comparison, he is a lifelong non-smoker
Suspect patient has possible disseminated infection with abscess, he has had cavitary nodules as far back as 11/08/2024 scan in left lower lobe
Now with new large left upper lobe cavitary lesion
He was recently admitted for IV antibiotics but did not resolve his complaints, prior culture data negative - -> unfortunately we did not collect a sputum culture until this current hospitalization (he also was previously treated with antibiotics
that do not cover Pseudomonas, like ceftriaxone + cefdinir on last hospitalization from 12/21 - 12/25, and then Unasyn from 11/30 on the prior hosp.)
Imaging reviewed extensively including prior CXR/CTs
Was evaluated by speech therapy, felt to have some coughing with meals but had initially declined to VSE
Speech saw the patient again on 01/05, and recommend NPO due to silent aspiration with concern for lack of compensatory strategies with thin liquids.
Apparently, there was right lingual deviation during oral motor assessment questioning if dysphagia is neurologically related.
Patient did have a brain MRI on 01/05 which showed no acute intracranial abnormality. Could be due to lidocaine use during bronchoscopy procedure
VSE performed on 01/07 and no aspiration noted, and recommended regular solids with thin liquids
Aspiration precautions
Patient is s/p bronchoscopy on 01/[address] Rudolph, with SOHAIL BAL performed, as well as brushing of anterior segment of left upper lobe. BAL has grown wise-sensitive Pseudomonas aeruginosa - -> ID has been on board and they changed his Unasyn to
cefepime
Left upper lobe anterior segmental bronchus brushing cytopathology still pending
Given that Pseudomonas aeruginosa has been recovered from his SOHAIL BAL, no need for additional diagnostic testing at this time (would offer additional diagnostic testing like TBBx/TBNA if additional tissue diagnosis requested)
MRSA swab negative
Remainder of BAL microbiological studies show NGTD (fungus + AFB)
Blood cultures collected on 01/04/2025 show NGTD as well
Clinical responded to antibiotics
Infectious disease has recommended Cipro and outpatient follow-up.
Prior ECHO results are reviewed indicating normal EF but has RV dysfunction/dilated hypokinetic ventricle - -> eventually will need repeat echo to assess for improvement in RV dysfunction
Prior contrast studies demonstrating large burden of PE - adm 11/2024
Continue Eliquis per
Follows with our pulmonary office via Dr. Amaral
Had appt on 01/[address] Amaral, but this is now being rescheduled per the patient
Dr. Otero reviewed plan of care with patient and his , Nilda, to their satisfaction
Agree with discharge planning
No additional recommendation
Sign off
Diagnostic Data
Chest X-Ray:
CT Scan: PET/CT 01/03/25- In the short interval of 1 month, a large cavitary thick-walled left upper lobe lesion has developed. The posterior margin abuts the major fissure, and appears to extend through the fissure with irregular soft tissue
opacity infiltrating the superior segment of the left lower lobe. Given the rapid development of this finding, this likely represents an aggressive infectious process as opposed to neoplasm.
Other smaller scattered pleural based parenchymal opacities are noted with mild FDG activity, as described, also felt to be infectious or inflammatory in nature.
8mm nodule in the lingula contiguous with the minor fissure with relatively mild FDG accumulation and only slightly increased on delayed imaging. A small neoplasm cannot be entirely excluded.
Mild lymph node activity in the left hilum and adjacent to the left mainstem bronchus, both with less FDG activity on delayed imaging, more suggestive of reactive lymph nodes as opposed to metastases.
Brain MRI 12/23/24- No acute intracranial abnormality noted.
CT 12/01/24- Vascular: Pulmonary emboli are seen within the segmental branches of the right upper lobe, right middle lobe, and right lower lobe. Pulmonary emboli are also seen within the segmental branches of the left upper lobe, lingular segment,
and left lower l be.
No emboli are seen within the main pulmonary artery on either side.
Echo: 12/01/24- 1. Technically limited study.
2. Ejection fraction is 56% by volumetric assessment.
3. Moderately dilated hypokinetic right ventricle.
4. Trileaflet calcified aortic valve with adequate leaflet excursion.
5. Mild concentric left ventricular hypertrophy.
PFT's:
Reports and relevant images were personally reviewed.
Subjective Data
-
Date of Service:
Date of Service: January 10, 2025
Chief Complaint: Pulmonary Follow Up
Subjective:
Clinically improved
Denies hemoptysis
Denies increased phlegm production
Review of Systems
General: Fever (n)
Cardiopulmonary: Dyspnea (n) and Dyspnea on Exertion (n)
Objective Data
Data Reviewed
Vital Signs / I&O / Oxygen:
Vital Signs
Temp Pulse Resp BP Pulse Ox
97.2 F 52 16 108/61 99
01/10/25 11:00 01/10/25 11:00 01/10/25 11:00 01/10/25 11:00 01/10/25 11:00
Intake and Output
01/09/25 01/10/25 01/11/25
06:59 06:59 06:59
Intake Total 960 / 960 1080 / 1080
Output Total 500 / 500 700 / 700
Balance 460 / 460 380 / 380
SaO2 99
Nasal Cannula flow liters per 99
minute
Physical Exam
General: Respiratory Distress (n), Comfortable, Chills (n) and Sweats (n)
HEENT: Normocephalic and Anicteric
Cardiovascular: S1-S2 and Peripheral Edema (n)
Respiratory: Wheeze (n), Crackles (Bibasilar (R >L)), Rhonchi (n), Non-Labored Respirations and Stridor (n)
GI: Soft, Non Distended, Non Tender and Normal Bowel Sounds
Neurology: Awake, Alert, Oriented and Tremors (n)
Skin: Warm, Dry, Cyanosis (n) and Jaundice (n)
Labs/Micro/Reports
Lab Data
01/08/25 06:08
01/07/25 05:45
Microbiology
01/04/25 18:35 Blood/Venous Blood Culture - Final
No Growth - Final Report
01/04/25 16:20 Blood/Venous Blood Culture - Final
No Growth - Final Report
01/05/25 09:15 Bronch Left Upper Lobe Respiratory Culture - Final
Pseudomonas aeruginosa
01/05/25 09:15 Bronch Left Upper Lobe Gram Stain - Final
01/05/25 09:16 Bronch Left Upper Lobe Acid Fast Bacilli Smear - Preliminary
01/05/25 09:16 Bronch Left Upper Lobe Acid Fast Bacilli Culture - Preliminary
[2025-01-10 15:00] VITALS: BP 111/69
--- NOTE | 2025-01-10 16:07 | CM ---
Patient seen at bedside with
referral in [facility] for [facility]
states was current with them
PLAN: [facility] when stable
[2025-01-10 16:49] VITALS: BP 123/59
[2025-01-10] MEDS: PROSCAR 5 MG PO (17:03)
[2025-01-10] MEDS: TOPROL XL 25 MG PO (17:03)
[2025-01-10] MEDS: LIPITOR 20 MG PO (20:41)
[2025-01-10 23:00] VITALS: BP 112/68
--- NOTE | 2025-01-11 06:42 | W.PN.HOSP.TC ---
Addendum entered and electronically signed by Marvin Suarez MD 01/11/25 14:49:
Seen and examined the patient earlier today. is at bedside. Late documentation
Agree with the plan formulated by the resident.
Patient was feeling well no shortness of breath no chest pain he was dressed to go home
Lung exam unremarkable
EKG reviewed by me-QTc is normal
Continue with ciprofloxacin
Repeat imaging as well as outpatient follow-up needed as outlined in the discharge instruction summary.
Total discharge time more than 30 minutes
Original Note:
Today's Communication/Plan
-
Discharge [facility]
Continue Cipro
Assessment / Plan
Assessment / Plan
Mr. Abdiel Stephens is a 79 yo man with hx PE, HLD, BPH, essential HTN, hypothyroidism, recent admission 12/21-12/25/24 for fever unknown origin s/p antibiotic course sent to the hospital for abnormal outpatient PET. PET scan showed large cavitary
thick-walled left upper lobe lesion.' He is s/p bronchoscopy with cultures growing Pseudomonas.
PET 01/03/25
-In the short interval of 1 month, a large cavitary thick-walled left upper lobe lesion has developed. The posterior margin abuts the major fissure, and appears to extend through the fissure with irregular soft tissue opacity infiltrating the
superior segment of the left lower lobe. Given the rapid development of this finding, this likely represents an aggressive infectious process as opposed to neoplasm.
-Other smaller scattered pleural based parenchymal opacities are noted with mild FDG activity, as described, also felt to be infectious or inflammatory in nature.
-8mm nodule in the lingula contiguous with the minor fissure with relatively mild FDG accumulation and only slightly increased on delayed imaging. A small neoplasm cannot be entirely excluded.
-Mild lymph node activity in the left hilum and adjacent to the left mainstem bronchus, both with less FDG activity on delayed imaging, more suggestive of reactive lymph nodes as opposed to metastases.
Bronchoscopy 01/05/25
Impression:
- Abnormal CT scan of chest
- Left upper lobe mass
- The airway examination was normal.
- Bronchoalveolar lavage was performed.
- Brushings were obtained.
- Normal tracheobronchial tree.
Recommendation:
- Await BAL results.
- Chest X-ray post-procedure.
- Observe patient in endoscopic recovery unit for ongoing care.
MRI of the brain 01/05/25
-no acute intracranial abnormality
Echo 12/01/2024
-EF 56%. Moderately dilated hypokinetic RV. Mild concentric LVH. Trileaflet aortic valve with adequate leaflet excursion
ECG 01/11/2025
-SINUS BRADYCARDIA
- QTcB Int : 410 ms
Bronchoscopy 01/05/2025 pathology
A. Lung, Left Upper Lobe, Bronchoalveolar Lavage, Bronchoscopy:
- Satisfactory for evaluation.
- Negative for malignant cells.
- Marked acute inflammation, squamous cells and pulmonary macrophages.
B. Lung, Left Upper Lobe, [place], Bronchoscopy:
- Satisfactory for evaluation.
- Negative for malignant cells.
- Reactive bronchial cells
Left Upper lobe Pulmonary abscess with cultures growing Pseudomonas
- s/p [id number]/26/25 with bronchoalveolar lavage and brushings obtained
- s/p IV Unasyn - changed to IV Cefepime on 01/08 after cultures results grew Pseudomonas -->switch to Ciprofloxacin 750mg PO BID, d/c cefepime plan 6 week course 02/28/2025
- Recheck QTc 410ms
- ID consulted appreciated
- Pathology - neg for malignancy. Marked acute inflammation
- Fungal Cx, Acid Fast bacilli Cx- pending
- Per Pulm, OK to resume AC now -Eliquis restarted 01/06/2025 evening
- PT- home health
- Pulm- outpatient f/u will be arranged
# Dysphagia post bronchoscopy
-MRI of the brain without any stroke
-During bronchoscopy patient had laryngeal spasm therefore had to apply more lidocaine per pulmonary w
- Video swallow - patient cleared for regular diet and tolerating
# Anemia of chronic disease
- Hemoglobin stable at 11.9, no active bleeding
- Continue to monitor
#Recent pulmonary embolism
#Right lower extremity DVT
-Restarted Eliquis
#Thrombocytosis likely secondary to infection
-Platelet 511
#Hypothyroidism -continue levothyroxine.
#Hyperlipidemia -atorvastatin.
#BPH
-Dutasteride, Flomax continued
#Essential hypertension
- Metoprolol continued
#Glaucoma
- Timolol continue
Full code
DVT prophylaxis: Eliquis
Anticipated Discharge: Today
Subjective/Interval History
-
Date of Service: January 11, 2025
He is comfortable lying in the bed. Denies chest pain, shortness of breath, palpitations, coughing. Denies chills.
Objective Data
-
Vital Signs:
Vital Signs
Temp Pulse Resp BP Pulse Ox
97.6 F 56 14 112/68 97
01/10/25 23:00 01/10/25 23:00 01/10/25 23:00 01/10/25 23:00 01/10/25 23:00
I&O
01/09/25 01/10/25 01/11/25
06:59 06:59 06:59
Intake Total 960 / 960 1080 / 1080 860 / 860
Output Total 500 / 500 700 / 700
Balance 460 / 460 380 / 380 860 / 860
Review of Systems
-
History Source: Patient
Constitutional: Reports No Symptoms
EENT: Reports No Symptoms Reported
Respiratory: Reports No Symptoms
Cardiac: Reports No Symptoms
Abdomen/GI: Reports No Symptoms
Breast: Reports No Symptoms
Genitourinary: Reports No Symptoms
Musculoskeletal: Reports No Symptoms
Skin: Reports No Symptoms
Neuro: Reports No Symptoms
Endocrine: Reports No Symptoms
Hematologic / Lymphatic: Reports No Symptoms
Allergy / Immunology: Reports No Symptoms
Physical Exam
-
General: Well Developed, Well Nourished, No Apparent Distress, Comfortable and Conversant
HEENT: Normocephalic and Atraumatic
Respiratory: Clear to Auscultation
Cardiac: Regular Rhythm and S1/S2
Breast: Deferred by me
GI: Soft, Nontender and Nondistended
Rectal: Deferred by Provider
Genito-urinary: Deferred by me
Musculoskeletal: No Clubbing, No Cyanosis and No Edema
Skin: Warm and Dry
Neuro: AO x 3, No Motor Deficits, Nonfocal/Grossly Intact and No Sensory Deficits
Psych: Calm
[2025-01-11] MEDS: SYNTHROID 50 MCG PO (07:09)
[2025-01-11 08:15] VITALS: BP 123/66
[2025-01-11] MEDS: CIPRO 750 MG PO (08:26)
[2025-01-11] MEDS: TIMOPTIC 0.5% OPHTHALMIC SOLUTION 1 DROP BOTH EYES (08:27)
[2025-01-11] MEDS: COLACE 100 MG PO (08:27)
[2025-01-11] MEDS: ELIQUIS 5 MG PO (08:27)
[2025-01-11] MEDS: FLOMAX 0.4 MG PO (08:27)
[2025-01-11] MEDS: FOLVITE 1 MG PO (08:27)
[2025-01-11] MEDS: VITAMIN B-12 1000 MCG PO (08:27)
[2025-01-11] MEDS: MIRALAX 17 GRAMS PO (08:28)
--- NOTE | 2025-01-11 10:00 | W.PN.ID1 ---
Date of Service
Date of Service: January 11, 2025
Today's Communication
- continue ciprofloxacin 750 mg PO BID - plan 6 week course through 02/29/24
- recheck QTc remains stable at 410
- recheck 2 view CXR, cbc, cmp, esr, crp early February before follow up appointment - ordered
- follow up in ID clinic february
Assessment / Plan
Cavitary pulmonary infection with recovery of Pseudomonas.
Recent suspected pneumonia
Recent FUO
Unintentional weight loss
- s/p bronchoscopy with aerobic, fungal and afb cultures in progress
- cx: Pseudomonas aeruginosa
- pathology in progress
- 01/04 blood cultures x2 in progress, neg
- CRP 260 -> 35, ESR 37 -> 63
- had repeat swallow eval 01/07: regular solids, thin liquids, meds as tolerated
- reviewed red flags with patient/ including but not limited to relapse of fevers, chills, cough, loss of appetite, loss of weight
- continue ciprofloxacin 750 mg PO BID - plan 6 week course through 02/29/24
- recheck QTc remains stable at 410
- recheck 2 view CXR, cbc, cmp, esr, crp early February before follow up appointment - ordered
- follow up in ID clinic february
����������������������������������������������������������
Chief Complaint
-: Pneumonia (With cavity)
Subjective / Review of Systems
afebrile
bp stable
no events overnight
no complaints
Vital Signs / Physical Exam
Vital Signs
Vital Signs
Temp Pulse Resp BP Pulse Ox
97.3 F 60 16 123/66 98
01/11/25 08:15 01/11/25 08:15 01/11/25 08:15 01/11/25 08:15 01/11/25 08:15
Physical Exam
Constitutional: No Acute Distress
Cardiovascular: Regular Rate and S1/S2; Negative Murmur or Rub
Pulmonary: Clear and Symmetric; Negative Wheezes or Rales
Gastrointestinal: Soft, Non Tender, Non Distended and Normal Bowel Sounds
Skin: Warm and Dry; Negative Rash or Jaundice
Objective Data
Lab Data
Lab Results
01/08/25 06:08
01/07/25 05:45
ESR 63 mm/hour (0-20) H 01/06/25 07:26
APTT Cancelled 01/06/25 15:30
Estimated Creat Clear 94 ml/min 01/07/25 05:45
Lactic Acid 1.1 mmol/L (0.7-2.0) 01/04/25 16:20
Total Bilirubin 0.4 mg/dl (0.2-1.3) 01/04/25 16:20
AST 23 U/L (17-59) 01/04/25 16:20
ALT 45 U/L (0-50) 01/04/25 16:20
Alkaline Phosphatase 159 U/L (38-126) H 01/04/25 16:20
C-Reactive Protein 35.30 mg/L (0.0-10.00) H 01/06/25 07:26
Most recent labs reviewed.
Micro Results:
01/05/25 09:16 Fungal Culture - Preliminary
Bronch Left Upper Lobe Culture in progress.
Positive cultures are reported as soon as detected.
Final report to follow in four to five weeks.
01/04/25 18:35 Blood Culture - Final
Blood/Venous No Growth - Final Report
01/04/25 16:20 Blood Culture - Final
Blood/Venous No Growth - Final Report
01/05/25 09:15 Respiratory Culture - Final
Bronch Left Upper Lobe Pseudomonas aeruginosa
Gram Stain - Final
01/05/25 09:16 Acid Fast Bacilli Smear - Preliminary
Bronch Left Upper Lobe Acid Fast Bacilli Culture - Preliminary
01/05/25 10:28 MRSA Screen - Final
Nose No Methicillin Resistant Staphylococcus aureus isolated.
Respiratory Culture Final 01/05/2025
Few Pseudomonas aeruginosa
Few Usual Respiratory Millicent
Organism 1 Pseudomonas aeruginosa
1. Pseudomonas aeruginosa
M.I.C. RX
--------- ---
Aztreonam <=4 S
Cefepime <=2 S
Ceftazidime <=1 S
Ciprofloxacin <=0.25 S
Meropenem <=1 S
Piperacillin/Tazobactam <=8 S
Tobramycin <=2 S
Imaging:
12/30/2024 CT PET: In the short interval of 1 month, a large cavitary thick-walled left upper lobe lesion has developed. The posterior margin abuts the major fissure, and appears to extend through the fissure with irregular soft tissue opacity
infiltrating the superior segment of the left lower lobe. Given the rapid development of this finding, this likely represents an aggressive infectious process as opposed to neoplasm.
--- NOTE | 2025-01-11 10:21 | W.DCSUMMARY ---
Discharge Summary
Discharge Data
Date of Admission: 01/04/25
Date of Discharge: 01/11/25
-
Pending Results: Yes
Additional Pending Results:
Fungal Culture and Acid Fast bacilli culture
Hospital Course
Discharging Physician : Dr. Lala Lozano, Dr. Marvin Suarez
Disposition : [facility]
Primary care physician : Rosey Eason
Principal Discharge diagnosis :
Left upper lobe pulmonary abscess
Dysphagia
Anemia of chronic disease
Recent pulmonary embolism
Chronic Discharge diagnosis :
Thrombocytosis
Hypothyroidism
Hyperlipidemia
Benign prostatic hyperplasia
Essential hypertension
Glaucoma
Hospital Course :
Mr. Stephens is a 79 y/o male with pmh of hypothyroidism, hypertension, PE on Eliquis sent to ER on the 01/[address] Amaral for abnormal PET scan. He had obtained an outpatient PET/CT on 01/03 for follow-up of lung nodule seen on previous CT scan
12/01/2024. PET demonstrated large cavitary lesion in the left upper lobe suspicious for abscess. Admitted to proceed with diagnostic bronchoscopy. He was s/p bronchoscopy with cultures growing Pseudomonas. He has been receiving broad antibiotics
for it. He is being discharged on ciprofloxacin 750 mg PO BID - plan 6 week course through 02/29/24. His QTc was stable at 410.
Continue ciprofloxacin 750 mg orally twice daily for 6 week course through 02/29/24
Please recheck 2 view Chest X Ray, cbc, cmp, esr, crp early February before follow up appointment with Infectious Disease Dr. Hernandez
Please follow up with your [facility] Dr. Amaral within 2-3 weeks
Please follow up with your PCP within a week
Important imaging findings :
PET 01/03/25
-In the short interval of 1 month, a large cavitary thick-walled left upper lobe lesion has developed. The posterior margin abuts the major fissure, and appears to extend through the fissure with irregular soft tissue opacity infiltrating the
superior segment of the left lower lobe. Given the rapid development of this finding, this likely represents an aggressive infectious process as opposed to neoplasm.
-Other smaller scattered pleural based parenchymal opacities are noted with mild FDG activity, as described, also felt to be infectious or inflammatory in nature.
-8mm nodule in the lingula contiguous with the minor fissure with relatively mild FDG accumulation and only slightly increased on delayed imaging. A small neoplasm cannot be entirely excluded.
-Mild lymph node activity in the left hilum and adjacent to the left mainstem bronchus, both with less FDG activity on delayed imaging, more suggestive of reactive lymph nodes as opposed to metastases.
MRI of the brain 01/05/25
-no acute intracranial abnormality
ECG 01/11/2025
-SINUS BRADYCARDIA
- QTcB Int : 410 ms
Procedure findings :
Bronchoscopy 01/05/25
Impression:
- Abnormal CT scan of chest
- Left upper lobe mass
- The airway examination was normal.
- Bronchoalveolar lavage was performed.
- Brushings were obtained.
- Normal tracheobronchial tree.
Bronchoscopy 01/05/2025 pathology results
A. Lung, Left Upper Lobe, Bronchoalveolar Lavage, Bronchoscopy:
- Satisfactory for evaluation.
- Negative for malignant cells.
- Marked acute inflammation, squamous cells and pulmonary macrophages.
B. Lung, Left Upper Lobe, [place], Bronchoscopy:
- Satisfactory for evaluation.
- Negative for malignant cells.
- Reactive bronchial cells
Discharge Plan
-
Patient Disposition: Home with Home Care
Discharge Diagnosis/Procedures: Left upper lobe pulmonary abscess
Dysphagia
Anemia of chronic disease
Recent pulmonary embolism
Thrombocytosis
Hypothyroidism
Hyperlipidemia
Benign prostatic hyperplasia
Essential hypertension
Glaucoma
Condition: Fair
Diet: Regular
Activity: As tolerated
Driving Restrictions: As prior to admission
Bathing Restrictions: None
Blood Work: recheck 2 view Chest Xray, CBC, CMP, ESR, CRP
Other Services: [facility]
Referrals:
Ethan Amaral MD [Active, Pulmonary Medicine] - in one to two weeks
Referral Note: has appt 01/12, can keep
Rosey Eason DO [Family Provider, Internal Medicine] - in less than 1 week
Gabriela Hernandez MD [Active, Infectious Diseases] - in four to six weeks
Referral Note: Please get 2 view Chest Xray, cbc, cmp, esr, crp early February before follow up appointment with Dr. Hernandez
Additional Discharge Medication Instructions: Continue ciprofloxacin 750 mg orally twice daily for 6 week course through 02/29/24
Please recheck 2 view Chest X Ray, cbc, cmp, esr, crp early February before follow up appointment with Infectious Disease Dr. Hernandez
Please follow up with your [facility] Dr. Amaral within 2-3 weeks
Please follow up with your PCP within a week
Prescriptions:
New
ciprofloxacin HCl 500 mg Tablet
750 mg PO BID Qty: 97 0RF
Continued
atorvastatin 20 mg tablet
20 mg PO HS
metoprolol succinate 50 mg tablet extended release 24 hr
25 mg PO QPM
levothyroxine 50 mcg tablet
50 mcg PO DAILY
timolol maleate 0.5 % drops
1 drp BOTH EYES BID
dutasteride 0.5 mg capsule
0.5 mg PO QPM
therapeutic multivitamin Tablet
1 tab PO DAILY
Eliquis 5 mg Tablet
5 mg PO BID
tamsulosin 0.4 mg Capsule
0.4 mg PO DAILY Qty: 30 0RF
folic acid 1 mg Tablet
1 mg PO DAILY Qty: 30 0RF
cyanocobalamin (vitamin B-12) 1,000 mcg capsule
1,000 mcg PO DAILY Qty: 30 0RF
Discharge Orders:
Discharge Patient (As Directed); Ordered 01/11/25
Ordered By: Lala Lozano
Discharge Date and Time
Discharge Date/Time: 01/11/25 13:31
Print Language: [place]
[2025-01-11 12:31] VITALS: BP 141/81
--- NOTE | 2025-01-11 13:42 | CM ---
patient seen at bedside
IMM explained & in chart
Discharge today
notified Anabel at [facility]
updated [facility]port
PLAN: [facility]

to transport
== END 2025-01-11 13:31 | disposition home health service (06) | DRG 178 ==
LOC: 3 WEST ACU 18:45
PROVIDERS: Nurse Practitioner; Registered Nurse; Student in an Organized Health Care Education/Training Program; ADMITTING PHYSICIAN Internal Medicine; ATTENDING PHYSICIAN Hospitalist; EMERGENCY PHYSICIAN Student in an Organized Health Care Education/Training Program; FAMILY PHYSICIAN Internal Medicine; OTHER PHYSICIAN Internal Medicine; OTHER PHYSICIAN Student in an Organized Health Care Education/Training Program
PROC: 0B9G8ZX Drainage of Left Upper Lung Lobe, Via Natural or Artificial Opening Endoscopic, Diagnostic (ICD-10-PCS; 2025-01-05)
PROC: 0BD88ZX Extraction of Left Upper Lobe Bronchus, Via Natural or Artificial Opening Endoscopic, Diagnostic (ICD-10-PCS; 2025-01-05)
DX: J85.2 Abscess of lung without pneumonia (principal); R64 Cachexia; R13.10 Dysphagia, unspecified; D63.8 Anemia in other chronic diseases classified elsewhere; Z86.711 Personal history of pulmonary embolism; E03.9 Hypothyroidism, unspecified; D75.838 Other thrombocytosis; E78.00 Pure hypercholesterolemia, unspecified; N40.2 Nodular prostate without lower urinary tract symptoms; I10 Essential (primary) hypertension; R00.1 Bradycardia, unspecified; Z87.891 Personal history of nicotine dependence; Z79.890 Hormone replacement therapy; Z79.01 Long term (current) use of anticoagulants; Z85.828 Personal history of other malignant neoplasm of skin; I25.2 Old myocardial infarction; J38.02 Paralysis of vocal cords and larynx, bilateral; Z86.0100 Personal history of colon polyps, unspecified; B96.5 Pseudomonas (aeruginosa) (mallei) (pseudomallei) as the cause of diseases classified elsewhere; Z68.20 Body mass index [BMI] 20.0-20.9, adult
CPT/HCPCS: 70450; 70551; 71046; 74230; 80048; 80053; 83605; 85025; 85027; 85652; 85730; 86140; 87015; 87040; 87070; 87077; 87102; 87116; 87186; 87205; 88112; 88305; 92526; 92610; 92611; 93005; 96361; 96365; 97162; 99285